=== PATIENT | female | born 1985 | race Hispanic/Latino ===

== ENCOUNTER 2016-08-01 23:09 | Emergency (ER) | payer MEDICAID ==
[2016-08-01 23:09] VITALS: BMI 33.5
[2016-08-01 23:44] VITALS: BP 107/70; PULSE 80; RESP 14; TEMP 98.3; O2SAT 99
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
== END 2016-08-02 00:15 | disposition left against medical advice (07) ==
LOC: C.ER 23:09
DX: R10.30 Lower abdominal pain, unspecified (principal)

== ENCOUNTER 2016-08-22 02:26 | Emergency (ER) | payer MEDICAID, OTHER ==
[2016-08-22 02:26] VITALS: BMI 33.5
[2016-08-22] MEDS ORDERED: Promethazine/Cod 6.25mg-10mg/5ml Syr UD PO STA (03:09)
[2016-08-22] MEDS ORDERED: Ipratropium 0.02% Inhal Soln (0.5 mg/2.5 ml) UD IH ONE ×2 (03:21→03:36)
[2016-08-22] MEDS ORDERED: Promethazine DM 6.25 mg-15 mg/5 ml Syrup ONE (03:22)
--- NOTE | 2016-08-22 03:27 | C.PDOC ---
History Of Present Illness Pt presents to ER with c/o of cough productive of yellowish sputum, chest congestion x 4 days. Pt also c/o o nasal congestion but denies fever, SOB, chest tightness Time Seen by Provider: 08/22/16 02:49 Chief Complaint (Nursing): Cough, Cold, Congestion History Per: Patient History/Exam Limitations: no limitations Current Symptoms Are (Timing): Still Present Sick Contacts (Context): None Associated Symptoms: Sputum. denies: Fever, Sore Throat Past Medical History Vital Signs: Last Vital Signs Temp 98.8 F 08/22/16 03:49 Pulse 87 08/22/16 03:49 Resp 18 08/22/16 03:49 BP 110/73 08/22/16 03:49 Pulse Ox 99 08/22/16 03:49 - Medical History PMH: Anemia Surgical History: Cholecystectomy Family History: States: Unknown Family Hx - Social History Hx Tobacco Use: Yes Hx Alcohol Use: No Hx Substance Use: No - Immunization History Hx Tetanus Toxoid Vaccination: No Hx Influenza Vaccination: Yes Hx Pneumococcal Vaccination: Yes Review Of Systems Constitutional: Negative for: Fever ENT: Positive for: Nose Congestion Cardiovascular: Negative for: Chest Pain Respiratory: Positive for: Cough, Sputum (yellow). Negative for: Shortness of Breath, Pleuritic Pain, Wheezing Neurological: Negative for: Weakness, Numbness Physical Exam - Physical Exam Appears: Well, Non-toxic Eye(s): bilateral: Normal Inspection, PERRL Oral Mucosa: Moist Throat: Normal, No Erythema, No Exudate Neck: Normal Chest: Symmetrical, No Tenderness Cardiovascular: Rhythm Regular Respiratory: Normal Breath Sounds, No Accessory Muscle Use, No Wheezing, Other ( minimally congested) Neurological/Psych: Oriented x3, Normal Cognition ED Course And Treatment O2 Sat by Pulse Oximetry: 99 Pulse Ox Interpretation: Normal Progress Note: Pt received duoneb x 1, phenergan with codeine and RX given and advised follow up with PMD Reevaluation Time: 04:01 Reassessment Condition: Improved Disposition Counseled Patient/Family Regarding: Diagnosis, Need For Followup, Rx Given - Disposition Referrals: [facility] [Outside] Disposition Time: 03:30 Condition: STABLE Additional Instructions: Please follow up with PMD Increase PO fluids Take all meds Return to ER if worse Prescriptions: Benzonatate [Tessalon Perles] 100 mg PO TID #20 sgl Azithromycin [Zithromax] 250 mg PO DAILY #6 tab Cetirizine HCl [Zyrtec] 10 mg PO DAILY #20 capsule Instructions: Upper Respiratory Infection (ED) - Clinical Impression Clinical Impression: Upper respiratory infection
[2016-08-22] MEDS: Ipratropium 0.02% Inhal Soln (0.5 mg/2.5 ml) UD IH SCH ×2 (03:30→03:38)
[2016-08-22 03:49] VITALS: BP 110/73; PULSE 87; RESP 18; TEMP 98.8; O2SAT 99
--- NOTE | 2016-09-01 08:43 | CARD ---
APPROVED REPORT EKG Measurement Heart [id number] <Conclusion> Normal sinus rhythm Baseline artifact
== END 2016-08-22 04:04 | disposition home or self-care (01) ==
LOC: C.ER 02:26
DX: J06.9 Acute upper respiratory infection, unspecified (principal)

== ENCOUNTER 2016-08-25 21:39 | Emergency (ER) | payer MEDICAID ==
[2016-08-25 21:39] VITALS: BMI 33.5
[2016-08-25 22:29] VITALS: RESP 20; O2SAT 98
[2016-08-25 23:17] LABS: BASO # 0.1 K/uL (0.0-0.2); BASO % 1.7 % (0.0-2.0); EOS # 0.2 K/uL (0.0-0.7); EOS % 2.5 % (0.0-4.0); HEMATOCRIT 36.7 % (34.0-47.0); LYMPH # 2.9 K/uL (1.0-4.3); LYMPH % 35.1 % (20.0-40.0); MEAN CELL VOLUME 92.8 fL (81.0-99.0); MEAN CORPUSCULAR HGB CONC 33.4 g/dL (33.0-37.0); MEAN PLATELET VOLUME 9.3 fL (7.2-11.7); MONO # 0.6 K/uL (0.0-0.8); MONO % 7.1 % (0.0-10.0); RED CELL DISTRIBUTION WIDTH 13.3 % (11.5-14.5); WHITE BLOOD COUNT 8.4 K/uL (4.8-10.8)
[2016-08-25 23:25] LABS: CHLORIDE 102 mmol/L (98-107); SODIUM 136 mmol/L (132-148)
[2016-08-25 23:27] LABS: AST/SGOT 24 U/L (14-36); BILIRUBIN,TOTAL 0.3 mg/dL (0.2-1.3); CARBON DIOXIDE 28 mmol/L (22-30); GFR AFRICAN-AMERICAN > 60
[2016-08-25 23:28] LABS: ALB/GLOB RATIO 1.4 (1.0-2.1); ALKALINE PHOSPHATASE 62 U/L (38-126); ALT/SGPT 33 U/L (9-52); BLOOD UREA NITROGEN 13 mg/dL (7-17); CALCIUM 8.3 mg/dl (8.6-10.4); GLUCOSE,RANDOM 104 mg/dL (65-105); TOTAL PROTEIN 6.5 g/dL (6.3-8.3)
[2016-08-25 23:29] LABS: PARTIAL THROMBOPLASTIN TIME 34 SECONDS (21-34)
--- NOTE | 2016-08-26 00:30 | C.PDOC ---
History Of Present Illness Pt c/o b/l LE pain and swelling. Time Seen by Provider: 08/25/16 22:36 Chief Complaint (Nursing): Lower Extremity Problem/Injury History Per: Patient Onset/Duration Of Symptoms: Days Current Symptoms Are (Timing): Still Present Severity: Moderate Associated Symptoms: Leg/Calf Pain, Ankle/Leg Swelling Reports Recently: Seen In ED Additional History Per: Prior Records Past Medical History Reviewed: Historical Data, Nursing Documentation, Vital Signs Vital Signs: Last Vital Signs Temp 98.4 F 08/25/16 22:24 Pulse 86 08/25/16 22:24 Resp 20 08/25/16 22:24 BP 118/75 08/25/16 22:24 Pulse Ox 98 08/26/16 00:30 - Medical History PMH: Anemia Surgical History: Cholecystectomy Family History: States: Unknown Family Hx - Social History Hx Tobacco Use: Yes Hx Alcohol Use: No Hx Substance Use: No - Immunization History Hx Tetanus Toxoid Vaccination: No Hx Influenza Vaccination: Yes Hx Pneumococcal Vaccination: Yes Review Of Systems Except As Marked, All Systems Reviewed And Found Negative. Constitutional: Negative for: Fever, Weakness Cardiovascular: Negative for: Chest Pain Respiratory: Negative for: Shortness of Breath Gastrointestinal: Negative for: Vomiting, Abdominal Pain Musculoskeletal: Positive for: Leg Pain, Foot Pain. Negative for: Neck Pain, Back Pain Skin: Negative for: Rash Neurological: Negative for: Weakness, Numbness, Seizures, Altered Mental Status Physical Exam - Physical Exam Appears: Non-toxic, No Acute Distress Skin: Normal Color, Warm, Dry, No Rash Head: Atraumatic, Normacephalic Eye(s): bilateral: Normal Inspection, PERRL, EOMI Oral Mucosa: Moist Neck: Normal ROM, Supple Cardiovascular: Rhythm Regular Respiratory: Normal Breath Sounds, No Accessory Muscle Use Gastrointestinal/Abdominal: Soft, No Tenderness Back: No CVA Tenderness, No Vertebral Tenderness Extremity: Normal ROM, Tenderness (nonspecific b/l LEs), Pedal Edema (mild b/l) , Capillary Refill (wnl), No Deformity Pulses: Left Dorsalis Pedis: Normal, Right Dorsalis Pedis: Normal Neurological/Psych: Oriented x3, Normal Motor, Normal Sensation ED Course And Treatment - Laboratory Results Result Diagrams: 08/25/16 23:12 08/25/16 23:12 Lab Interpretation: No Acute Changes Urine POC: Negative O2 Sat by Pulse Oximetry: 98 Pulse Ox Interpretation: Normal Reassessment Condition: Improved Disposition Counseled Patient/Family Regarding: Studies Performed, Diagnosis, Need For Followup - Disposition Disposition: HOME/ ROUTINE Disposition Time: 00:45 Condition: IMPROVED Additional Instructions: Follow up with your doctor for further evaluation and treatment. Return to the ER if you develop chest pain, shortness of breath, worsening of symptoms or if you have any other concerns. Instructions: Leg Edema (ED) - Clinical Impression Clinical Impression: Leg pain, bilateral
[2016-08-26 00:44] LABS: RBC URINE 1 /hpf (0-3); URINE BILIRUBIN NEGATIVE (NEGATIVE); URINE BLOOD NEGATIVE (NEGATIVE); URINE COLOR Yellow (YELLOW); URINE GLUCOSE (UA) NORMAL (Normal); URINE KETONE NEGATIVE (NEGATIVE); URINE LEUKOCYTE ESTERASE NEG Leu/uL (Negative); URINE PROTEIN NEGATIVE (NEGATIVE); URINE UROBILINOGEN NORMAL mg/dL (0.2-1.0); WBC URINE 1 /hpf (0-5)
[2016-08-26 00:58] VITALS: BP 132/76; PULSE 78; TEMP 98
== END 2016-08-26 00:56 | disposition home or self-care (01) ==
LOC: C.ER 21:39
DX: M79.662 Pain in left lower leg (principal); M79.661 Pain in right lower leg
CPT/HCPCS: 80053; 80324; 80345; 80346; 80349; 80353; 80358; 80361; 81001; 82550; 83880; 83992; 84484; 84703; 85025; 85378; 85610; 85730; 96374; 99284; J1940

== ENCOUNTER 2016-10-09 22:59 | Emergency (ER) | payer MEDICAID, OTHER ==
[2016-10-09 22:59] VITALS: BMI 33.5
[2016-10-09 23:26] VITALS: O2SAT 99
[2016-10-09] MEDS ORDERED: Sodium Chloride 0.9% 1,000 ML IV ONE (23:34)
--- NOTE | 2016-10-09 23:34 | C.PDOC ---
History Of Present Illness A 31 y/o female presents to the ER c/o abdominal pain for a week. Pt also reports vaginal bleeding and clots for 2 days. Pt notes vomiting and diarrhea but denies fever, chills, vaginal discharge, hematuria, dysuria, or any other complaints. Time Seen by Provider: 10/09/16 23:34 Chief Complaint (Nursing): Abdominal Pain History Per: Patient History/Exam Limitations: no limitations Onset/Duration Of Symptoms: Days Current Symptoms Are (Timing): Still Present Severity: Mild Location Of Pain/Discomfort: Epigastric Quality Of Discomfort: "Pain" Associated Symptoms: Vomiting, Diarrhea Recent travel outside of the [place]: No Additional History Per: Patient Abnormal Vaginal Bleeding: Yes Past Medical History Reviewed: Historical Data, Nursing Documentation, Vital Signs Vital Signs: Last Vital Signs Temp 98.4 F 10/10/16 04:15 Pulse 91 H 10/10/16 04:15 Resp 16 10/10/16 04:15 BP 94/60 L 10/10/16 04:15 Pulse Ox 99 10/10/16 04:21 - Medical History PMH: Anemia, Asthma Surgical History: Cholecystectomy Family History: States: Unknown Family Hx - Social History Hx Tobacco Use: Yes Hx Alcohol Use: No Hx Substance Use: No - Immunization History Hx Tetanus Toxoid Vaccination: No Hx Influenza Vaccination: Yes Hx Pneumococcal Vaccination: Yes Review Of Systems Constitutional: Negative for: Fever, Chills Gastrointestinal: Positive for: Vomiting, Abdominal Pain, Diarrhea Genitourinary: Positive for: Vaginal Bleeding. Negative for: Dysuria, Hematuria , Vaginal Discharge Physical Exam - Physical Exam Appears: Non-toxic, No Acute Distress Skin: Warm, Dry Head: Normacephalic Eye(s): bilateral: Normal Inspection Neck: Trachea Midline, Supple Chest: Symmetrical Cardiovascular: Rhythm Regular Respiratory: No Rales, No Rhonchi, No Wheezing Gastrointestinal/Abdominal: Soft, Tenderness (Mild epigastric tenderness), No Guarding, No Rebound Neurological/Psych: Oriented x3 (Awake and alert), Normal Speech Gait: Steady ED Course And Treatment - Laboratory Results Result Diagrams: 10/09/16 23:49 10/09/16 23:49 O2 Sat by Pulse Oximetry: 99 (RA) Pulse Ox Interpretation: Normal Disposition Counseled Patient/Family Regarding: Studies Performed, Diagnosis, Need For Followup, Rx Given - Disposition Referrals: [facility] [Outside] [facility] [Outside] Disposition: HOME/ ROUTINE Disposition Time: 23:34 Condition: FAIR Prescriptions: oxyCODONE/Acetaminophen [Percocet 5/325 mg Tab] 1 tab PO TID #10 tab Instructions: Dysfunctional Uterine Bleeding (ED), Uterine Fibroids (ED) - Clinical Impression Clinical Impression: Vaginal bleeding, Fibroid, uterine - Scribe Statement The provider has reviewed the documentation as recorded by the Kavonibgenna braden All medical record entries made by the Kavonibgenna were at my direction and personally dictated by me. I have reviewed the chart and agree that the record accurately reflects my personal performance of the history, physical exam, medical decision making, and the department course for this patient. I have also personally directed, reviewed, and agree with the discharge instructions and disposition.
[2016-10-09 23:56] LABS: BASO % 0.2 % (0.0-2.0); EOS # 0.2 K/uL (0.0-0.7); EOS % 2.2 % (0.0-4.0); HEMATOCRIT 36.6 % (34.0-47.0); LYMPH # 2.3 K/uL (1.0-4.3); LYMPH % 30.9 % (20.0-40.0); MEAN CELL VOLUME 92.7 fL (81.0-99.0); MEAN CORPUSCULAR HEMOGLOBIN 30.7 pg (27.0-31.0); MEAN CORPUSCULAR HGB CONC 33.1 g/dL (33.0-37.0); MONO # 0.6 K/uL (0.0-0.8); MONO % 8.2 % (0.0-10.0); NRBC % 0.1 % (0.0-2.0); RED CELL DISTRIBUTION WIDTH 13.6 % (11.5-14.5); WHITE BLOOD COUNT 7.4 K/uL (4.8-10.8)
[2016-10-10] MEDS ORDERED: Sodium Chloride 0.9% 1,000 ML ONE
[2016-10-10 00:01] LABS: RBC URINE 5874 /hpf (0-3); URINE BILIRUBIN NEGATIVE (NEGATIVE); URINE BLOOD 3+ (NEGATIVE); URINE COLOR Red (YELLOW); URINE GLUCOSE (UA) NORMAL (Normal); URINE KETONE NEGATIVE (NEGATIVE); URINE LEUKOCYTE ESTERASE 1+ Leu/uL (Negative); URINE PROTEIN 2+ mg/dL (NEGATIVE); URINE UROBILINOGEN NORMAL mg/dL (0.2-1.0); WBC URINE 59 /hpf (0-5)
[2016-10-10 00:01] LABS: CHLORIDE 104 mmol/L (98-107); POTASSIUM 3.8 mmol/L (3.6-5.2); SODIUM 137 mmol/L (132-148)
[2016-10-10 00:03] LABS: BILIRUBIN,TOTAL 0.5 mg/dL (0.2-1.3); CARBON DIOXIDE 26 mmol/L (22-30); GFR AFRICAN-AMERICAN > 60
[2016-10-10] MEDS ORDERED: cefTRIAXone IV 1 gm in Dextros 50 ML IVPB ONE ×2 (00:03→00:30)
[2016-10-10 00:04] LABS: ALB/GLOB RATIO 1.3 (1.0-2.1); ALKALINE PHOSPHATASE 54 U/L (38-126); ALT/SGPT 25 U/L (9-52); AST/SGOT 20 U/L (14-36); BLOOD UREA NITROGEN 13 mg/dL (7-17); CALCIUM 8.7 mg/dl (8.6-10.4); GLUCOSE,RANDOM 96 mg/dL (65-105); TOTAL PROTEIN 6.6 g/dL (6.3-8.3)
--- NOTE | 2016-10-10 04:28 | US ---
EXAM: US Pelvis Complete, Transabdominal CLINICAL HISTORY: 31 years old, female; Signs and symptoms; Menstruation abnormalities; Excessive menstruation; With regular cycle; Additional info: Vag bleed, clots TECHNIQUE: Real-time transabdominal pelvic ultrasound (complete) with image documentation. COMPARISON: CT - ABD PELVIS IV CONTRAST ONLY 12/23/2015 11:24:10 PM FINDINGS: Uterus/cervix: Uterus measures 10.4 x 5.0 x 0.9 cm in size. Two uterine masses, larger measuring 2.1 x 1.5 x 1.9 cm. Endometrium: 0.7 cm in thickness. Right ovary: 3.4 x 1.8 x 3.1 cm in size. No mass. Small follicles. Normal flow. Left ovary: 3.8 x 4.1 x 1.9 cm in size. No mass. Small follicles. Normal flow. Free fluid: No significant free fluid. Bladder: Unremarkable as visualized. IMPRESSION: 1. Probable fibroid uterus. 2. Incidental/non-acute findings are described above. EXAM: US Pelvis, Transvaginal CLINICAL HISTORY: 31 years old, female; Signs and symptoms; Menstruation abnormalities; Excessive menstruation; With regular cycle; Additional info: Vag bleed, clots TECHNIQUE: Real-time transvaginal pelvic ultrasound (complete) with image documentation. Transvaginal imaging was used for better evaluation of the endometrium and adnexa. COMPARISON: CT - ABD PELVIS IV CONTRAST ONLY 12/23/2015 11:24:10 PM FINDINGS: Uterus/cervix: Uterus measures 10.4 x 5.0 x 0.9 cm in size. Two uterine masses, larger measuring 2.1 x 1.5 x 1.9 cm. Endometrium: 0.7 cm in thickness. Right ovary: 3.4 x 1.8 x 3.1 cm in size. No mass. Small follicles. Normal flow. Left ovary: 3.8 x 4.1 x 1.9 cm in size. No mass. Small follicles. Normal flow. Free fluid: No significant free fluid. Bladder: Empty bladder which cannot be evaluated with this probe.
[2016-10-10 04:35] VITALS: RESP 16; TEMP 98.4
[2016-10-10 04:36] VITALS: BP 94/60; PULSE 91
== END 2016-10-10 05:09 | disposition home or self-care (01) ==
LOC: C.ER 22:59
DX: N93.9 Abnormal uterine and vaginal bleeding, unspecified (principal); D25.9 Leiomyoma of uterus, unspecified
CPT/HCPCS: 76830; 76856; 80053; 81001; 83690; 84703; 85025; 85610; 85730; 86850; 86900; 96361; 96374; 96375; 99284; J0696; J2270; J2405; J2765; J7040

== ENCOUNTER 2016-10-28 01:20 | Emergency (ER) | payer MEDICAID, OTHER ==
[2016-10-28 01:21] VITALS: BMI 33.5
[2016-10-28] MEDS ORDERED: Sodium Chloride 0.9% 1,000 ML IV ONE (02:07)
[2016-10-28] MEDS ORDERED: Sodium Chloride 0.9% 1,000 ML ONE (02:18)
[2016-10-28 02:31] LABS: BASO # 0.2 K/uL (0.0-0.2); BASO % 2.3 % (0.0-2.0); EOS # 0.2 K/uL (0.0-0.7); EOS % 3.2 % (0.0-4.0); HEMATOCRIT 37.2 % (34.0-47.0); LYMPH # 2.9 K/uL (1.0-4.3); LYMPH % 40.2 % (20.0-40.0); MEAN CELL VOLUME 92.5 fL (81.0-99.0); MEAN CORPUSCULAR HEMOGLOBIN 30.9 pg (27.0-31.0); MEAN CORPUSCULAR HGB CONC 33.4 g/dL (33.0-37.0); MEAN PLATELET VOLUME 9.2 fL (7.2-11.7); MONO # 0.5 K/uL (0.0-0.8); MONO % 7.4 % (0.0-10.0); RED CELL DISTRIBUTION WIDTH 13.7 % (11.5-14.5); WHITE BLOOD COUNT 7.2 K/uL (4.8-10.8)
[2016-10-28] MEDS ORDERED: DiphenhydrAMINE 50 mg/ml Inj IVP STA (02:31)
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
[2016-10-28] MEDS ORDERED: DiphenhydrAMINE 50 mg/ml Inj ONE (02:33)
[2016-10-28 02:52] LABS: CHLORIDE 108 mmol/L (98-107)
[2016-10-28 02:53] LABS: POTASSIUM 3.9 mmol/L (3.6-5.2); SODIUM 137 mmol/L (132-148)
[2016-10-28 02:55] LABS: ALB/GLOB RATIO 1.4 (1.0-2.1); AST/SGOT 23 U/L (14-36); BILIRUBIN,TOTAL 0.5 mg/dL (0.2-1.3); BLOOD UREA NITROGEN 16 mg/dL (7-17); CARBON DIOXIDE 23 mmol/L (22-30); GFR AFRICAN-AMERICAN > 60; TOTAL PROTEIN 6.5 g/dL (6.3-8.3)
[2016-10-28 02:56] LABS: ALKALINE PHOSPHATASE 62 U/L (38-126); ALT/SGPT 26 U/L (9-52); CALCIUM 9.2 mg/dl (8.6-10.4); GLUCOSE,RANDOM 94 mg/dL (65-105)
[2016-10-28 03:28] VITALS: BP 128/80; PULSE 90; RESP 20; TEMP 97.8
[2016-10-28 06:26] VITALS: O2SAT 100
== END 2016-10-28 03:28 | disposition home or self-care (01) ==
LOC: SUPCPDRO 01:20 → C.ER 01:20
DX: L55.9 Sunburn, unspecified (principal); R19.7 Diarrhea, unspecified
CPT/HCPCS: 80053; 85025; 96361; 96374; 99284; J1200; J7040

== ENCOUNTER 2016-11-25 14:00 | Emergency (ER) | payer MEDICAID ==
[2016-11-25 14:06] VITALS: BMI 34.7
--- NOTE | 2016-11-25 14:35 | C.PDOC ---
History Of Present Illness LUQ/LLQ ABD PAIN X 3 WEEKS. +VAG DC X 2 DAYS. PAIN CONSTANT. PS MORE INTENSE THAN USUAL. NO FEVER, NVD. LMP 1 MO. PSH EXP LAP, MYOMECTOMY. +"STRONG ODOR" W URINATION. SP TYLENOL 1 HR CLEANING MAID. +SEX ACTIVE, 1 PARTNER HO FIBROIDS, CHRONIC ABD PAIN, CHRONIC BACK PAIN, chronic drug abuser, has multiple prescriptions for opiates as see [place]. MULT PRIOR ER VISITS FOR ABD PAIN, VAG DC. 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 EXT VAG NEG. SPECULUM EXAM +CANDIDIASIS Time Seen by Provider: 11/25/16 14:25 Chief Complaint (Nursing): Abdominal Pain History Per: Patient History/Exam Limitations: no limitations Onset/Duration Of Symptoms: Days, Persistent Current Symptoms Are (Timing): Still Present Location Of Pain/Discomfort: LUQ, LLQ Radiation Of Pain To:: None Quality Of Discomfort: "Pain" Associated Symptoms: Urinary Symptoms. denies: Fever, Chills, Diarrhea Recent travel outside of the [place]: No Abnormal Vaginal Bleeding: No Past Medical History Reviewed: Historical Data, Nursing Documentation, Vital Signs Vital Signs: Last Vital Signs Temp 98.2 F 11/25/16 15:52 Pulse 80 11/25/16 15:52 Resp 18 11/25/16 15:52 BP 102/66 11/25/16 15:52 Pulse Ox 98 11/25/16 17:46 - Medical History PMH: Anemia, Asthma, Chronic Pain (chronic abdominal pain ) Surgical History: Cholecystectomy Family History: States: Unknown Family Hx - Social History Hx Tobacco Use: Yes Hx Alcohol Use: No (Denies) Hx Substance Use: No - Immunization History Hx Tetanus Toxoid Vaccination: No Hx Influenza Vaccination: Yes Hx Pneumococcal Vaccination: Yes Review Of Systems Except As Marked, All Systems Reviewed And Found Negative. Constitutional: Negative for: Fever, Chills Cardiovascular: Negative for: Chest Pain Respiratory: Negative for: Cough, Shortness of Breath, Wheezing Gastrointestinal: Positive for: Abdominal Pain. Negative for: Nausea, Vomiting , Diarrhea Genitourinary: Positive for: Vaginal Discharge Skin: Negative for: Rash Neurological: Negative for: Headache, Dizziness Physical Exam - Physical Exam Appears: Non-toxic, No Acute Distress Skin: Warm, Dry Head: Atraumatic, Normacephalic Oral Mucosa: Moist Chest: Symmetrical Cardiovascular: Rhythm Regular Respiratory: Normal Breath Sounds, No Rales, No Rhonchi, No Wheezing Gastrointestinal/Abdominal: Soft, Tenderness (+LUQ/LLQ ), No Guarding, No Rebound Back: Normal Inspection, No CVA Tenderness Extremity: Normal ROM, Capillary Refill (< 2 SEC. ) Neurological/Psych: Oriented x3, Normal Speech, Normal Cognition ED Course And Treatment - Laboratory Results Result Diagrams: 11/25/16 15:06 11/25/16 15:06 O2 Sat by Pulse Oximetry: 98 Pulse Ox Interpretation: Normal - CT Scan/US ULTRASOUND Other Rad Studies (CT/US): Read By Radiologist, Radiology Report Reviewed CT/US Interpretation: FINDINGS: UTERUS: Measures 9.1 x 4.8 x 6.1 cm. Fundal uterine fibroid, 2.0 x 1.9 x 1.8 cm. Anterior uterine body fibroid, 2.4 x 1.8 x 2.2 cm. ENDOMETRIUM: Measures 4 mm in single wall thickness. Trace endometrial fluid. Mm in diameter. CERVIX: No cervical abnormality identified. RIGHT OVARY: Measures 3.7 x 3.0 by 3.4 cm. No solid mass. Normal flow. Complex cyst, 1.9 x 1.7 x 1.2 cm. LEFT OVARY: Measures 4.3 x 1.9 x 3.9 cm. No solid mass. Normal flow. Two left para ovarian simple cysts, 9 mm and 10 mm in greatest dimension respectively. FREE FLUID: No significant free fluid noted. OTHER FINDINGS: None. IMPRESSION: Two uterine fibroids. Trace endometrial fluid. Complex 1.9 cm right ovarian cyst. Two small simple left paraovarian cysts. No additional abnormality. Progress Note: TREATED WITH MORPHINE 4MG IVP. LABS AND ULTRASOUND ORDERED. Progress - Re-Evaluation Re-evaluation Note: 11/25/16 15:00 [facility] reviewed LAST [facility] RX 10/18/16 - Data Reviewed Data Reviewed: Lab, Diagnostic imaging, Old records - Continuity of Care Discussed pt. case with home service consultant/specialty: Other ([facility]) Disposition Counseled Patient/Family Regarding: Studies Performed, Diagnosis, Need For Followup, Rx Given - Disposition Referrals: [facility] [Other] Disposition: HOME/ ROUTINE Disposition Time: 18:21 Condition: IMPROVED Prescriptions: Tramadol HCl [Ultram] 50 mg PO QID #20 tab Instructions: Ovarian Cyst (ED) - Clinical Impression Clinical Impression: Pelvic pain - Scribe Statement The provider has reviewed the documentation as recorded by the Jun SABA Provider Attestation: All medical record entries made by the Jun were at my direction and personally dictated by me. I have reviewed the chart and agree that the record accurately reflects my personal performance of the history, physical exam, medical decision making, and the department course for this patient. I have also personally directed, reviewed, and agree with the discharge instructions and disposition.
[2016-11-25 15:07] LABS: SQUAMOUS EPITHIAL 4 /hpf (0-5); URINE AMORPHOUS SEDIMENT FEW /ul (<OCC); URINE BACTERIA RARE (<OCC); URINE BILIRUBIN NEGATIVE (NEGATIVE); URINE BLOOD NEGATIVE (NEGATIVE); URINE CLARITY Hazy (Clear); URINE COLOR Yellow (YELLOW); URINE GLUCOSE (UA) NORMAL (Normal); URINE LEUKOCYTE ESTERASE TRACE Leu/uL (Negative); URINE NITRATE NEGATIVE (NEGATIVE); URINE PROTEIN NEGATIVE (NEGATIVE); URINE UROBILINOGEN NORMAL mg/dL (0.2-1.0)
[2016-11-25 15:15] LABS: BASO # 0.1 K/uL (0.0-0.2); BASO % 2.2 % (0.0-2.0); EOS # 0.1 K/uL (0.0-0.7); EOS % 1.9 % (0.0-4.0); HEMOGLOBIN 12.5 g/dL (11.0-16.0); LYMPH # 2.1 K/uL (1.0-4.3); LYMPH % 31.6 % (20.0-40.0); MEAN CORPUSCULAR HEMOGLOBIN 30.1 pg (27.0-31.0); MEAN CORPUSCULAR HGB CONC 32.4 g/dL (33.0-37.0); MEAN PLATELET VOLUME 9.1 fL (7.2-11.7); MONO # 0.5 K/uL (0.0-0.8); MONO % 7.5 % (0.0-10.0); NEUT # 3.7 K/uL (1.8-7.0); NEUT % 56.8 % (50.0-75.0); RBC 4.13 Mil/uL (3.80-5.20); RED CELL DISTRIBUTION WIDTH 13.6 % (11.5-14.5); WHITE BLOOD COUNT 6.6 K/uL (4.8-10.8)
[2016-11-25 15:28] LABS: ALBUMIN 3.4 g/dL (3.5-5.0)
[2016-11-25 15:31] LABS: ALB/GLOB RATIO 1.3 (1.0-2.1); ALT/SGPT 38 U/L (9-52); AST/SGOT 23 U/L (14-36); BLOOD UREA NITROGEN 15 mg/dL (7-17); CALCIUM 8.2 mg/dl (8.6-10.4); GFR AFRICAN-AMERICAN > 60; GFR NON-AFRICAN AMERICAN > 60; LIPASE 33 U/L (23-300)
[2016-11-25 16:04] VITALS: O2SAT 98
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
[2016-11-26 12:00] VITALS: BP 97/63; PULSE 64; RESP 17; TEMP 98
== END 2016-11-25 18:34 | disposition home or self-care (01) ==
LOC: C.ER 14:00
DX: R10.2 Pelvic and perineal pain (principal)
CPT/HCPCS: 76830; 76856; 80053; 81001; 83690; 85025; 87086; 94770; 96374; 99285; J2270

== ENCOUNTER 2017-01-18 14:20 | Emergency (ER) | payer MEDICAID ==
[2017-01-18 14:24] VITALS: BP 107/72; PULSE 111; RESP 18; TEMP 98; O2SAT 98; BMI 32.6
[2017-01-18] MEDS ORDERED: Sodium Chloride 0.9% 1,000 ML IV ONE (14:46)
[2017-01-18] MEDS ORDERED: Sodium Chloride 0.9% 1,000 ML ONE (14:53)
[2017-01-18 15:03] LABS: BASO # 0.1 K/uL (0.0-0.2); BASO % 1.3 % (0.0-2.0); EOS # 0.2 K/uL (0.0-0.7); EOS % 3.2 % (0.0-4.0); LYMPH # 2.2 K/uL (1.0-4.3); LYMPH % 37.7 % (20.0-40.0); MEAN CELL VOLUME 93.1 fL (81.0-99.0); MEAN CORPUSCULAR HEMOGLOBIN 31.2 pg (27.0-31.0); MEAN CORPUSCULAR HGB CONC 33.5 g/dL (33.0-37.0); MEAN PLATELET VOLUME 8.9 fL (7.2-11.7); MONO # 0.5 K/uL (0.0-0.8); MONO % 7.9 % (0.0-10.0); NRBC % 0.1 % (0.0-2.0); RED CELL DISTRIBUTION WIDTH 13.4 % (11.5-14.5); WHITE BLOOD COUNT 5.7 K/uL (4.8-10.8)
[2017-01-18 15:11] LABS: CHLORIDE 107 mmol/L (98-107); POTASSIUM 4.2 mmol/L (3.6-5.2); SODIUM 140 mmol/L (132-148)
[2017-01-18 15:12] LABS: RBC URINE 1 /hpf (0-3); URINE BACTERIA OCC (<OCC); URINE BILIRUBIN NEGATIVE (NEGATIVE); URINE BLOOD NEGATIVE (NEGATIVE); URINE COLOR Yellow (YELLOW); URINE GLUCOSE (UA) NORMAL (Normal); URINE KETONE NEGATIVE (NEGATIVE); URINE LEUKOCYTE ESTERASE NEG Leu/uL (Negative); URINE PROTEIN NEGATIVE (NEGATIVE); URINE UROBILINOGEN NORMAL mg/dL (0.2-1.0); WBC URINE 3 /hpf (0-5)
[2017-01-18 15:14] LABS: ALB/GLOB RATIO 1.4 (1.0-2.1); ALKALINE PHOSPHATASE 70 U/L (38-126); AST/SGOT 18 U/L (14-36); BILIRUBIN,TOTAL 0.4 mg/dL (0.2-1.3); BLOOD UREA NITROGEN 12 mg/dL (7-17); CARBON DIOXIDE 24 mmol/L (22-30); GFR AFRICAN-AMERICAN > 60; TOTAL PROTEIN 6.5 g/dL (6.3-8.3)
[2017-01-18 15:15] LABS: ALT/SGPT 28 U/L (9-52); CALCIUM 8.6 mg/dl (8.6-10.4); GLUCOSE,RANDOM 83 mg/dL (65-105)
--- NOTE | 2017-01-18 15:21 | C.PDOC ---
History Of Present Illness 31 y/o female presents to ED for evaluation of lower abdominal pain, mostly left sided, for the past month. Pt reports being seen by PMD, Dr. Goldman, on who gave her prescription to be evaluated for possible ovarian cyst, but pt has not followed up yet. Otherwise, denies any n/v/d, back pain, or fever. Time Seen by Provider: 01/18/17 14:27 Chief Complaint (Nursing): Abdominal Pain History Per: Patient History/Exam Limitations: no limitations Onset/Duration Of Symptoms: Days Current Symptoms Are (Timing): Still Present Location Of Pain/Discomfort: Suprapubic Radiation Of Pain To:: None Quality Of Discomfort: "Pain" Associated Symptoms: denies: Loss Of Appetite, Back Pain, Chest Pain, Constipation, Urinary Symptoms Exacerbating Factors: None Alleviating Factors: None Recent travel outside of the [place]: No Additional History Per: Patient Abnormal Vaginal Bleeding: No Past Medical History Reviewed: Historical Data, Nursing Documentation, Vital Signs Vital Signs: Last Vital Signs Temp 98 F 01/18/17 14:23 Pulse 111 H 01/18/17 14:23 Resp 18 01/18/17 14:23 BP 107/72 01/18/17 14:23 Pulse Ox 98 01/18/17 15:31 - Medical History PMH: Anemia, Asthma, Chronic Pain (chronic abdominal pain ) Surgical History: Cholecystectomy Family History: States: Unknown Family Hx - Social History Hx Tobacco Use: Yes Hx Alcohol Use: No (Denies) Hx Substance Use: No - Immunization History Hx Tetanus Toxoid Vaccination: No Hx Influenza Vaccination: Yes (01/2016) Hx Pneumococcal Vaccination: Yes (4 years ago) Review Of Systems Except As Marked, All Systems Reviewed And Found Negative. Constitutional: Negative for: Fever, Chills Cardiovascular: Negative for: Chest Pain, Palpitations Respiratory: Negative for: Cough, Shortness of Breath Gastrointestinal: Positive for: Abdominal Pain (lower). Negative for: Nausea, Vomiting, Diarrhea, Constipation Musculoskeletal: Negative for: Back Pain Physical Exam - Physical Exam Appears: Non-toxic, No Acute Distress Skin: Normal Color, Warm, Dry Head: Atraumatic, Normacephalic Oral Mucosa: Moist Cardiovascular: Rhythm Regular, No Murmur Respiratory: Normal Breath Sounds, No Rales, No Rhonchi, No Wheezing Gastrointestinal/Abdominal: Soft, Tenderness (mild suprapubic), No Guarding, No Rebound Extremity: Bilateral: Atraumatic, Normal Color And Temperature, Normal ROM Neurological/Psych: Oriented x3, Normal Speech ED Course And Treatment - Laboratory Results Result Diagrams: 01/18/17 15:00 Lab Interpretation: Normal Urine POC: Negative O2 Sat by Pulse Oximetry: 98 (on RA) Pulse Ox Interpretation: Normal Progress Note: Blood work, UA, transvaginal ultrasound ordered. Pt was given IV fluids and Tylenol. Pt is requesting narcotics. Pt left from the ED without signing AMA when refused to give narcotics. Reassessment Condition: Unchanged Medical Decision Making Medical Decision Making: Patient has multiple visitis to ED for abdominal pain. Patient had recent Pelvic US and CT which showed uterine fibroids and ovarian cysts Patient exhibiting drug seeking behavior Requesting pain medication offered tylenol but patient refused and requesting something else for pain Patient informed she will not receive any narcotics. Patient then refused further testing and requested to leave Patient refused to sign AMA form Disposition - Disposition Disposition: AGAINST MEDICAL ADVICE Disposition Time: 15:30 Condition: STABLE Additional Instructions: Follow up with your INTERFACE ENGINEER and PMD for further evaluation Instructions: Pelvic Pain in Women (ED) Forms: [employer] (Guinean) - POA Present On Arrival: None - Clinical Impression Clinical Impression: Abdominal pain - PA / GERMINATION WORKER / Resident Statement MD/DO has reviewed & agrees with the documentation as recorded. - Scribe Statement The provider has reviewed the documentation as recorded by the Scribe Eber Bartholomew All medical record entries made by the Kavonibgenna were at my direction and personally dictated by me. I have reviewed the chart and agree that the record accurately reflects my personal performance of the history, physical exam, medical decision making, and the department course for this patient. I have also personally directed, reviewed, and agree with the discharge instructions and disposition.
== END 2017-01-18 15:30 | disposition left against medical advice (07) ==
LOC: C.ER 14:20
DX: R10.32 Left lower quadrant pain (principal)
CPT/HCPCS: 80053; 81001; 83690; 84703; 85025; 99284; J7040

== ENCOUNTER 2017-08-09 19:21 | Emergency (ER) | payer MEDICAID ==
[2017-08-09 19:21] VITALS: BMI 32.6
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
[2017-08-10 11:38] VITALS: BP 118/78; PULSE 93; RESP 20; TEMP 98.1; O2SAT 99
== END 2017-08-09 21:00 | disposition home or self-care (01) ==
LOC: C.ER 19:21
DX: R51 Headache (principal)

== ENCOUNTER 2017-08-27 22:27 | Emergency (ER) | payer MEDICAID ==
[2017-08-27 22:27] VITALS: BMI 32.6
[2017-08-27] MEDS ORDERED: Sodium Chloride 0.9% 1,000 ML IV ONE (23:00)
[2017-08-27] MEDS ORDERED: Belladonna-Phenobarbital PO STA (23:00)
[2017-08-27 23:22] LABS: BASO # 0.1 K/uL (0.0-0.2); BASO % 1.1 % (0.0-2.0); EOS # 0.1 K/uL (0.0-0.7); EOS % 2.1 % (0.0-4.0); HEMOGLOBIN 12.3 g/dL (11.0-16.0); LYMPH # 1.9 K/uL (1.0-4.3); MEAN CELL VOLUME 94.1 fL (81.0-99.0); MEAN CORPUSCULAR HEMOGLOBIN 32.6 pg (27.0-31.0); MEAN CORPUSCULAR HGB CONC 34.6 g/dL (33.0-37.0); MEAN PLATELET VOLUME 8.8 fL (7.2-11.7); MONO # 0.5 K/uL (0.0-0.8); NEUT # 3.7 K/uL (1.8-7.0); NEUT % 58.8 % (50.0-75.0); NRBC % 0.1 % (0.0-2.0); RBC 3.78 Mil/uL (3.80-5.20); RED CELL DISTRIBUTION WIDTH 13.6 % (11.5-14.5); WHITE BLOOD COUNT 6.3 K/uL (4.8-10.8)
[2017-08-27] MEDS ORDERED: Belladonna-Phenobarbital ONE (23:22)
--- NOTE | 2017-08-27 23:34 | C.PDOC ---
Time Seen by Provider: 08/27/17 22:56 Chief Complaint (Nursing): GI Problem History Per: Patient Onset/Duration Of Symptoms: Days (1) Current Symptoms Are (Timing): Still Present Severity: Moderate Associated Symptoms: Nausea, Vomiting, Diarrhea Exacerbating Factors: Food Alleviating Factors: None Recent travel outside of the [place]: No Additional History Per: Prior Records Past Medical History Reviewed: Historical Data, Nursing Documentation, Vital Signs Vital Signs: Last Vital Signs Temp 97.6 F 08/28/17 00:36 Pulse 81 08/28/17 00:36 Resp 20 08/28/17 00:36 BP 108/67 08/28/17 00:36 Pulse Ox 96 08/28/17 00:36 - Medical History PMH: Anemia, Asthma, Chronic Pain (chronic abdominal pain ) Family History: States: Unknown Family Hx - Social History Hx Tobacco Use: Yes Hx Alcohol Use: No (Denies) Hx Substance Use: No - Immunization History Hx Tetanus Toxoid Vaccination: No Hx Influenza Vaccination: Yes Hx Pneumococcal Vaccination: Yes Review Of Systems Except As Marked, All Systems Reviewed And Found Negative. Constitutional: Negative for: Fever, Weakness Cardiovascular: Negative for: Chest Pain Respiratory: Negative for: Shortness of Breath Gastrointestinal: Positive for: Nausea, Vomiting, Diarrhea. Negative for: Abdominal Pain, Melena, Hematochezia, Hematemesis Genitourinary: Negative for: Dysuria Musculoskeletal: Negative for: Neck Pain, Back Pain Skin: Negative for: Rash Neurological: Negative for: Weakness, Numbness Physical Exam - Physical Exam Appears: Non-toxic, No Acute Distress Skin: Normal Color, Warm, Dry, No Rash Head: Atraumatic, Normacephalic Eye(s): bilateral: Normal Inspection, PERRL, EOMI Neck: Normal ROM, Supple Cardiovascular: Rhythm Regular Respiratory: Normal Breath Sounds, No Accessory Muscle Use Gastrointestinal/Abdominal: Soft, No Tenderness Back: No CVA Tenderness Extremity: Normal ROM Neurological/Psych: Oriented x3, Normal Motor, Normal Sensation ED Course And Treatment - Laboratory Results Result Diagrams: 08/27/17 23:20 08/27/17 23:20 Lab Interpretation: No Acute Changes Urine POC: Negative O2 Sat by Pulse Oximetry: 98 Pulse Ox Interpretation: Normal Progress Note: Pt tolerating PO in the ED. No abdominal pain. Reassessment Condition: Improved Progress - Interventions Interventions:: Observation, Intravenous fluid - Medications Administered Intravenous: Antiemetic, H-2 tiny - Data Reviewed Data Reviewed: Lab, Old records - Patient Status Patient status: Mostly improved - Continuity of Care Discussed patient case with:: Patient, Family-HIPPA compliant, ED Nurse - Patient Plan Patient Plan: Discharge, F/U with PCP Disposition Counseled Patient/Family Regarding: Studies Performed, Diagnosis, Need For Followup, Rx Given, Smoking Cessation - Disposition Referrals: Shaik Goldman MD [Staff Provider] - Disposition: HOME/ ROUTINE Disposition Time: 00:46 Condition: IMPROVED Additional Instructions: Drink plenty of fluids (Gatorade). Follow up with your doctor. Return to the ER if you develop abdominal pain, bleeding, not tolerating fluids, worsening of symptoms or if you have any other concerns. Prescriptions: Ondansetron [Zofran] 4 mg PO Q8H PRN #15 tab PRN Reason: Nausea/Vomiting Instructions: Viral Gastroenteritis, Adult (DC) Forms: [employer] (Wolof) - Clinical Impression Clinical Impression: Nausea, vomiting and diarrhea
[2017-08-27 23:35] LABS: ALB/GLOB RATIO 1.2 (1.0-2.1); ALBUMIN 3.6 g/dL (3.5-5.0); ALT/SGPT 22 U/L (9-52); AST/SGOT 22 U/L (14-36); BLOOD UREA NITROGEN 12 mg/dL (7-17); CALCIUM 8.4 mg/dl (8.6-10.4); GFR AFRICAN-AMERICAN > 60; GFR NON-AFRICAN AMERICAN > 60; LIPASE 48 U/L (23-300)
[2017-08-27] MEDS ORDERED: Potassium Chloride 20 mEq ER Tab PO STA (23:36)
[2017-08-27] MEDS ORDERED: Potassium Chloride 20 mEq ER Tab PO ONE (23:56)
[2017-08-28 00:37] VITALS: BP 108/67; PULSE 81; RESP 20; TEMP 97.6
[2017-08-28 00:42] LABS: SQUAMOUS EPITHIAL 3 /hpf (0-5); URINE BILIRUBIN NEGATIVE (NEGATIVE); URINE BLOOD NEGATIVE (NEGATIVE); URINE CLARITY Clear (Clear); URINE COLOR Yellow (YELLOW); URINE GLUCOSE (UA) NORMAL (Normal); URINE LEUKOCYTE ESTERASE NEG Leu/uL (Negative); URINE PROTEIN NEGATIVE (NEGATIVE); URINE UROBILINOGEN NORMAL mg/dL (0.2-1.0)
[2017-08-28 00:43] LABS: HCG,QUALITATIVE URINE NEGATIVE (NEGATIVE)
[2017-08-28 00:49] VITALS: O2SAT 98
== END 2017-08-28 00:58 | disposition home or self-care (01) ==
LOC: C.ER 22:27
DX: R11.2 Nausea with vomiting, unspecified (principal); R19.7 Diarrhea, unspecified
CPT/HCPCS: 80053; 81001; 83690; 84703; 85025; 96361; 96374; 96375; 96376; 99284; J2405; J7040

== ENCOUNTER 2017-10-06 17:22 | Emergency (ER) | payer MEDICAID ==
[2017-10-06 17:23] VITALS: BMI 32.6
[2017-10-06 17:41] VITALS: RESP 18; TEMP 99.6
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
[2017-10-06 18:27] VITALS: BP 124/70; PULSE 75
[2017-10-06 18:36] VITALS: O2SAT 100
--- NOTE | 2017-10-06 18:38 | RAD ---
PROCEDURE: Radiographs of the Left Forearm HISTORY: injury COMPARISON: None available. TECHNIQUE: Frontal and lateral views obtained. FINDINGS: BONES: Bone alignment and mineralization are normal. There is no acute displaced fracture or bone destruction. JOINT SPACES: Unremarkable. OTHER FINDINGS: None. IMPRESSION: No acute fracture or dislocation.
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
== END 2017-10-06 18:27 | disposition home or self-care (01) ==
LOC: C.ER 17:22
DX: S60.222A Contusion of left hand, initial encounter (principal); W19.XXXA Unspecified fall, initial encounter

== ENCOUNTER 2017-11-26 16:27 | Emergency (ER) | payer MEDICAID ==
[2017-11-26 17:01] VITALS: BMI 26.2
[2017-11-26 17:15] VITALS: O2SAT 99
--- NOTE | 2017-11-26 18:28 | C.PDOC ---
History Of Present Illness 32 y/o female presents to ED for evaluation of not feeling well for the past 2 weeks. Pt complains of generalized weakness, fatigue. Also reports weight loss over the course of 1 month because of decreased appetite due to emotional stress. Pt states she gets diarrhea when she tries to eat. Notes being seen by dentist last week for wisdom tooth procedure and was placed on Levaquin but she stopped taking it because she did not like the way it made her feel. Denies fever, or other complaints. Patient states that she "works out in a gym 7 hours a day, 6 days a week". Time Seen by Provider: 11/26/17 18:01 Chief Complaint (Nursing): GI Problem History Per: Patient History/Exam Limitations: no limitations Past Medical History Reviewed: Historical Data, Nursing Documentation, Vital Signs Vital Signs: Last Vital Signs Temp 99.3 F 11/26/17 17:03 Pulse 55 L 11/26/17 19:15 Resp 16 11/26/17 19:15 BP 95/62 L 11/26/17 19:15 Pulse Ox 99 11/26/17 19:18 - Medical History PMH: Anemia, Asthma, Chronic Pain (chronic abdominal pain ) Surgical History: Cholecystectomy Family History: States: Unknown Family Hx - Social History Hx Tobacco Use: Yes Hx Alcohol Use: No (Denies) Hx Substance Use: No - Immunization History Hx Tetanus Toxoid Vaccination: No Hx Influenza Vaccination: Yes (2017) Hx Pneumococcal Vaccination: Yes Review Of Systems Except As Marked, All Systems Reviewed And Found Negative. Constitutional: Positive for: Weakness, Weight loss. Negative for: Fever, Chills ENT: Negative for: Nose Discharge, Nose Congestion, Throat Pain Cardiovascular: Negative for: Chest Pain, Palpitations Respiratory: Negative for: Cough, Shortness of Breath Gastrointestinal: Positive for: Diarrhea. Negative for: Nausea, Vomiting, Abdominal Pain, Melena, Hematochezia Genitourinary: Negative for: Dysuria, Frequency, Hematuria Physical Exam - Physical Exam Appears: Non-toxic, No Acute Distress Skin: Normal Color, Warm, Dry Head: Atraumatic, Normacephalic Eye(s): bilateral: Normal Inspection Oral Mucosa: Moist Neck: Normal ROM, Supple Chest: Symmetrical, No Tenderness Cardiovascular: Rhythm Regular, No Murmur Respiratory: Normal Breath Sounds, No Rales, No Rhonchi, No Wheezing Gastrointestinal/Abdominal: Soft, No Tenderness, No Guarding, No Rebound Back: No CVA Tenderness Extremity: Normal ROM, No Deformity Neurological/Psych: Oriented x3, Normal Speech ED Course And Treatment - Laboratory Results Result Diagrams: 11/26/17 18:40 11/26/17 18:40 Lab Interpretation: Normal O2 Sat by Pulse Oximetry: 99 (RA) Pulse Ox Interpretation: Normal Progress Note: 7:15 Patient c/o feeling dizzy and lightheaded. HR 58 BP 95/67. IV fluids running. EKG ordered. Orthostatics abnormal initially. Improved after IV fluids. Reevaluation Time: 21:24 Reassessment Condition: Improved (Patient feels much better after 3 liters of NS IV.) Medical Decision Making Medical Decision Making: Plan: Blood work Urinalysis IV fluids Disposition Counseled Patient/Family Regarding: Studies Performed, Diagnosis, Need For Followup - Disposition Referrals: Shaik Goldman MD [Staff Provider] - Disposition: HOME/ ROUTINE Disposition Time: 21:25 Condition: IMPROVED Instructions: Orthostatic Hypotension Forms: [employer] (Azeri) - Clinical Impression Clinical Impression: Orthostatic hypotension - Scribe Statement The provider has reviewed the documentation as recorded by the Scribe KP All medical record entries made by the Scribe were at my direction and personally dictated by me. I have reviewed the chart and agree that the record accurately reflects my personal performance of the history, physical exam, medical decision making, and the department course for this patient. I have also personally directed, reviewed, and agree with the discharge instructions and disposition.
[2017-11-26 18:44] LABS: BASO # 0.1 K/uL (0.0-0.2); BASO % 0.8 % (0.0-2.0); EOS # 0.2 K/uL (0.0-0.7); EOS % 2.5 % (0.0-4.0); HEMOGLOBIN 13.4 g/dL (11.0-16.0); LYMPH # 2.6 K/uL (1.0-4.3); LYMPH % 39.1 % (20.0-40.0); MEAN CELL VOLUME 93.4 fL (81.0-99.0); MEAN CORPUSCULAR HEMOGLOBIN 31.6 pg (27.0-31.0); MEAN CORPUSCULAR HGB CONC 33.8 g/dL (33.0-37.0); MEAN PLATELET VOLUME 8.9 fL (7.2-11.7); MONO # 0.5 K/uL (0.0-0.8); MONO % 7.3 % (0.0-10.0); NEUT # 3.4 K/uL (1.8-7.0); NEUT % 50.3 % (50.0-75.0); NRBC % 0.1 % (0.0-2.0); RBC 4.23 Mil/uL (3.80-5.20); WHITE BLOOD COUNT 6.7 K/uL (4.8-10.8)
[2017-11-26] MEDS: Sodium Chloride 0.9% 1,000 ML IV SCH ×2 (18:45→19:45)
[2017-11-26 18:58] LABS: ALB/GLOB RATIO 1.6 (1.0-2.1); ALT/SGPT 33 U/L (9-52); AST/SGOT 19 U/L (14-36); BLOOD UREA NITROGEN 9 mg/dL (7-17); GFR AFRICAN-AMERICAN > 60; GFR NON-AFRICAN AMERICAN > 60
[2017-11-26 19:06] LABS: HCG,QUALITATIVE URINE NEGATIVE (NEGATIVE)
[2017-11-26 19:12] LABS: SQUAMOUS EPITHIAL 10 /hpf (0-5); URINE BILIRUBIN NEGATIVE (NEGATIVE); URINE BLOOD NEGATIVE (NEGATIVE); URINE CLARITY Hazy (Clear); URINE COLOR Yellow (YELLOW); URINE GLUCOSE (UA) NORMAL (Normal); URINE LEUKOCYTE ESTERASE NEG Leu/uL (Negative); URINE PROTEIN NEGATIVE (NEGATIVE); URINE UROBILINOGEN NORMAL mg/dL (0.2-1.0)
[2017-11-26 19:14] LABS: FREE T4 0.94 ng/dL (0.78-2.19)
[2017-11-26] MEDS ORDERED: Sodium Chloride 0.9% 1,000 ML IV ONE ×2 (20:31→21:34)
[2017-11-26 21:38] VITALS: BP 101/74; PULSE 72; RESP 18; TEMP 98.6
== END 2017-11-26 21:37 | disposition home or self-care (01) ==
LOC: C.ER 16:27
DX: I95.1 Orthostatic hypotension (principal); Z72.0 Tobacco use
CPT/HCPCS: 80053; 81001; 84439; 84443; 84703; 85025; 96360; 96361; 99284; J7030; J7040

== ENCOUNTER 2018-01-30 00:43 | Emergency (ER) | payer MEDICAID, OTHER ==
[2018-01-30 00:43] VITALS: BMI 26.2
[2018-01-30 01:43] LABS: HCG,QUALITATIVE URINE NEGATIVE (NEGATIVE)
[2018-01-30 01:44] LABS: SQUAMOUS EPITHIAL 9 /hpf (0-5); URINE BILIRUBIN NEGATIVE (NEGATIVE); URINE BLOOD NEGATIVE (NEGATIVE); URINE CALCIUM OXALATE CRYSTALS MANY /hpf (<OCC); URINE CLARITY Hazy (Clear); URINE COLOR Yellow (YELLOW); URINE GLUCOSE (UA) NORMAL (Normal); URINE LEUKOCYTE ESTERASE NEG Leu/uL (Negative); URINE PROTEIN NEGATIVE (NEGATIVE)
[2018-01-30] MEDS ORDERED: Lidocaine 5% Patch TD STA (01:49)
[2018-01-30] MEDS ORDERED: Lidocaine 5% Patch TD ONE (01:59)
--- NOTE | 2018-01-30 02:02 | C.PDOC ---
History Of Present Illness 32 y/o female presents to the ED complaining of bilateral back pain for the past 3 days. Patient feels as if her back is burning. Aggravated by movement, alleviated by rest. Reports taking Tylenol without relief. Patient denies any associated numbness, tingling, extremity weakness, fever, chills, nausea, vomiting, dysuria, or incontinence. She does report having suprapubic pain and urinary frequency. PMHx is significant for chronic pelvic pain with fibroids and ovarian cysts. Denies vaginal bleeding or discharge. Time Seen by Provider: 01/30/18 01:24 Chief Complaint (Nursing): Back Pain History Per: Patient History/Exam Limitations: no limitations Onset/Duration Of Symptoms: Days (x3) Current Symptoms Are (Timing): Still Present Associated Symptoms: None Past Medical History Reviewed: Historical Data, Nursing Documentation, Vital Signs Vital Signs: Last Vital Signs Temp 97.8 F 01/30/18 04:29 Pulse 86 01/30/18 04:29 Resp 17 01/30/18 04:29 BP 122/77 01/30/18 04:29 Pulse Ox 96 01/30/18 04:53 - Medical History PMH: Anemia, Asthma, Chronic Pain (chronic abdominal pain ) Surgical History: Denies: Cholecystectomy Family History: States: Unknown Family Hx - Social History Hx Tobacco Use: Yes Hx Alcohol Use: No (Denies) Hx Substance Use: No - Immunization History Hx Tetanus Toxoid Vaccination: No Hx Influenza Vaccination: Yes (2017) Hx Pneumococcal Vaccination: Yes Review Of Systems Constitutional: Negative for: Fever, Chills Gastrointestinal: Positive for: Abdominal Pain. Negative for: Nausea, Vomiting Genitourinary: Positive for: Frequency. Negative for: Dysuria, Incontinence, Hematuria Musculoskeletal: Positive for: Back Pain Neurological: Negative for: Weakness, Numbness, Incoordination, Other (tingling) Physical Exam - Physical Exam Appears: Non-toxic, No Acute Distress Skin: Normal Color, Warm, Dry Head: Atraumatic, Normacephalic Eye(s): bilateral: Normal Inspection, EOMI Nose: Normal Oral Mucosa: Moist Neck: Normal ROM, Supple Chest: Symmetrical Cardiovascular: Rhythm Regular Respiratory: Normal Breath Sounds, No Rales, No Rhonchi, No Wheezing, Other ( Lungs clear to auscultation) Gastrointestinal/Abdominal: Soft, Tenderness (suprapubic tenderness), No Distention, No Guarding, No Rebound Back: No CVA Tenderness, No Vertebral Tenderness, Paraspinal Tenderness (to bilateral paralumbar regions) Extremity: Normal ROM, No Tenderness, No Pedal Edema, No Calf Tenderness Extremity: Bilateral: Atraumatic, Normal Color And Temperature, Normal ROM Neurological/Psych: Oriented x3, Normal Speech, Normal Sensation, Other (No focal deficits) ED Course And Treatment O2 Sat by Pulse Oximetry: 96 (RA) Pulse Ox Interpretation: Normal - CT Scan/US CT abd/pelvis Other Rad Studies (CT/US): Read By Radiologist, Radiology Report Reviewed CT/US Interpretation: FINDINGS: Lung bases: Unremarkable. No mass. No consolidation. ABDOMEN: Liver: Unremarkable. Gallbladder and bile ducts: Unremarkable. No calcified stones. No ductal dilation. Pancreas: Unremarkable. No ductal dilation. Spleen: Unremarkable. No splenomegaly. Adrenals: Unremarkable. No mass. Kidneys and ureters: Unremarkable. No obstructing stones. No hydronephrosis. Stomach and bowel: Unremarkable. No obstruction. No mucosal thickening. PELVIS: Appendix: Normal appendix. Bladder: Unremarkable. No stones. Reproductive: Unremarkable as visualized. ABDOMEN and PELVIS: Intraperitoneal space: Unremarkable. No free air. No significant fluid collection. Bones/joints: No fracture. No dislocation. Soft tissues: Unremarkable. Vasculature: Unremarkable. No abdominal aortic aneurysm. Lymph nodes: Unremarkable. No enlarged lymph nodes. IMPRESSION: No acute findings. Progress Note: UA and cultures ordered. Urine HCG negative. Administered 10 mg Flexeril PO and Lidoderm patch x1. CT Abdomen/Pelvis ordered without contrast. On reassessment, patient is resting comfortably, with improvement of back pain. Patient remains afebrile, with no bony tenderness, extremity numbness or weakness, or abdominal pain. Patient is ambulatory in the emergency department with no signs of discomfort. Patient was advised to follow up with physician/ clinic in 1-2 days. Disposition Counseled Patient/Family Regarding: Studies Performed, Diagnosis, Need For Followup, Rx Given - Disposition Disposition: HOME/ ROUTINE Disposition Time: 04:14 Condition: STABLE Additional Instructions: FOllow up with your doctor in 1-2 days. Return to the ER if symptoms persist or worsen. Prescriptions: Cyclobenzaprine [Cyclobenzaprine HCl] 10 mg PO BID #10 tab Lidocaine 5% [Lidoderm] 1 patch TOP DAILY PRN #5 patch PRN Reason: Pain, Moderate (4-7) Instructions: Low Back Pain (DC) Forms: [employer] (Italian) - Clinical Impression Clinical Impression: Low back strain - PA / CHEMICAL INSPECTOR / Resident Statement MD/DO has reviewed & agrees with the documentation as recorded. - Scribe Statement The provider has reviewed the documentation as recorded by the Scribe (Tiny Monterroso) All medical record entries made by the Scribe were at my direction and personally dictated by me. I have reviewed the chart and agree that the record accurately reflects my personal performance of the history, physical exam, medical decision making, and the department course for this patient. I have also personally directed, reviewed, and agree with the discharge instructions and disposition.
[2018-01-30 04:29] VITALS: BP 122/77; PULSE 86; RESP 17; TEMP 97.8
[2018-01-30 04:53] VITALS: O2SAT 96
--- NOTE | 2018-01-30 09:38 | CT ---
Date of service: 01/30/2018 PROCEDURE: CT Abdomen and Pelvis without intravenous contrast HISTORY: Abdominal pain. Negative test (concurrent with this examination). COMPARISON: 01/07/2016. CT abdomen and pelvis TECHNIQUE: Unenhanced study. Neither oral nor intravenous contrast administered. Radiation dose: Total exam DLP = 771.09 mGy-cm. This CT exam was performed using one or more of the following dose reduction techniques: Automated exposure control, adjustment of the mA and/or kV according to patient size, and/or use of iterative reconstruction technique. FINDINGS: LOWER THORAX: Unremarkable. LIVER: Unremarkable. No gross lesion or ductal dilatation. GALLBLADDER AND BILE DUCTS: Unremarkable. PANCREAS: Unremarkable. No gross lesion or ductal dilatation. SPLEEN: Unremarkable. ADRENALS: Unremarkable. No mass. KIDNEYS AND URETERS: Unremarkable. No hydronephrosis. No solid mass. VASCULATURE: Unremarkable. No aortic aneurysm. BOWEL: Unremarkable. No obstruction. No gross mural thickening. APPENDIX: Unremarkable. Normal appendix. PERITONEUM: Unremarkable. No free fluid. No free air. LYMPH NODES: Unremarkable. No enlarged lymph nodes. BLADDER: Unremarkable. REPRODUCTIVE: Unremarkable. BONES: No acute fracture. OTHER FINDINGS: None. IMPRESSION: No significant or acute findings to account for/ related to the clinical presentation. Concordant results (preliminary interpretation) provided by [email or web address]. Procedure Completed: 03:26. Preliminary ([facility]) Report: 04:12. Final report 09:36 January 30 2018.
== END 2018-01-30 04:31 | disposition home or self-care (01) ==
LOC: C.ER 00:43
DX: S39.012A Strain of muscle, fascia and tendon of lower back, initial encounter (principal); X58.XXXA Exposure to other specified factors, initial encounter; Z72.0 Tobacco use

== ENCOUNTER 2018-02-11 13:46 | Emergency (ER) | payer MEDICAID ==
[2018-02-11 13:46] VITALS: BMI 26.2
[2018-02-11 15:09] LABS: BASO # 0.1 K/uL (0.0-0.2); EOS # 0.1 K/uL (0.0-0.7); EOS % 1.6 % (0.0-4.0); HEMOGLOBIN 13.7 g/dL (11.0-16.0); LYMPH # 2.6 K/uL (1.0-4.3); LYMPH % 31.6 % (20.0-40.0); MEAN CELL VOLUME 94.7 fL (81.0-99.0); MEAN CORPUSCULAR HEMOGLOBIN 32.5 pg (27.0-31.0); MEAN CORPUSCULAR HGB CONC 34.3 g/dL (33.0-37.0); MONO # 0.6 K/uL (0.0-0.8); MONO % 7.7 % (0.0-10.0); NEUT # 4.8 K/uL (1.8-7.0); NEUT % 58.1 % (50.0-75.0); NRBC % 0.1 % (0.0-2.0); RBC 4.22 Mil/uL (3.80-5.20); RED CELL DISTRIBUTION WIDTH 13.3 % (11.5-14.5); WHITE BLOOD COUNT 8.2 K/uL (4.8-10.8)
[2018-02-11 15:16] LABS: HCG,QUALITATIVE URINE NEGATIVE (NEGATIVE)
[2018-02-11 15:17] LABS: SQUAMOUS EPITHIAL 5 /hpf (0-5); URINE BACTERIA RARE (<OCC); URINE BILIRUBIN NEGATIVE (NEGATIVE); URINE BLOOD NEGATIVE (NEGATIVE); URINE CLARITY Clear (Clear); URINE COLOR Yellow (YELLOW); URINE GLUCOSE (UA) NORMAL (Normal); URINE LEUKOCYTE ESTERASE NEG Leu/uL (Negative); URINE PROTEIN NEGATIVE (NEGATIVE); URINE UROBILINOGEN NORMAL mg/dL (0.2-1.0)
[2018-02-11 15:30] LABS: BARBITURATES, UR NEGATIVE (NEGATIVE); BENZODIAZEPINES, UR NEGATIVE (NEGATIVE); OPIATES, UR NEGATIVE (NEGATIVE); PHENCYCLIDINE, UR NEGATIVE (NEGATIVE)
[2018-02-11 15:31] LABS: PARTIAL THROMBOPLASTIN TIME 34 SECONDS (21-34); PROTHROMBIN TIME 10.6 SECONDS (9.7-12.2)
[2018-02-11 15:37] LABS: D DIMER < 200 ng/mlDDU (0-243)
[2018-02-11 15:45] LABS: ALB/GLOB RATIO 1.5 (1.0-2.1); ALBUMIN 4.2 g/dL (3.5-5.0); ALT/SGPT 38 U/L (9-52); AST/SGOT 28 U/L (14-36); BLOOD UREA NITROGEN 13 mg/dL (7-17); CALCIUM 9.4 mg/dl (8.6-10.4); GFR NON-AFRICAN AMERICAN > 60; LIPASE 53 U/L (23-300)
[2018-02-11 15:53] LABS: B-TYPE NATRIURETIC PEPTIDE 63.6 pg/mL (0-450)
--- NOTE | 2018-02-11 15:55 | C.PDOC ---
History Of Present Illness 32yo female, comes to ER reporting bilateral lower extremity pain x 3-4 days. She denies any trauma to the site and reports no other pain. Patient has multiple ER visits due to vague, and bizarre pain with normal workups. She also has an extensive psychiatric history, including anxiety and depression. She has no additional medical complaints. Pt was up all night to prepare a paper for school, which she claims makes her drowsy and at times incoherent. Patient denies any recent narcotics use. Per @ bedside, pt with lower extremity pain and swelling after even 10 minute hike. No cardiax hx. Time Seen by Provider: 02/11/18 14:26 Chief Complaint (Nursing): Lower Extremity Problem/Injury History Per: Patient History/Exam Limitations: no limitations Onset/Duration Of Symptoms: Days Current Symptoms Are (Timing): Still Present Additional History Per: Patient Past Medical History Reviewed: Historical Data, Nursing Documentation, Vital Signs Vital Signs: Last Vital Signs Temp 98.7 F 02/11/18 13:50 Pulse 91 H 02/11/18 13:50 Resp 16 02/11/18 13:50 BP 116/73 02/11/18 13:50 Pulse Ox 97 02/11/18 13:50 - Medical History PMH: Anemia, Asthma, Chronic Pain (chronic abdominal pain ) Surgical History: Denies: Cholecystectomy Family History: States: No Known Family Hx - Social History Hx Tobacco Use: Yes Hx Alcohol Use: No (Denies) Hx Substance Use: No - Immunization History Hx Tetanus Toxoid Vaccination: No Hx Influenza Vaccination: Yes (2017) Hx Pneumococcal Vaccination: Yes Review Of Systems Except As Marked, All Systems Reviewed And Found Negative. Cardiovascular: Negative for: Chest Pain Respiratory: Negative for: Shortness of Breath Musculoskeletal: Positive for: Leg Pain Neurological: Negative for: Weakness, Numbness Physical Exam - Physical Exam Appears: Non-toxic Skin: Normal Color Head: Atraumatic, Normacephalic Eye(s): bilateral: Other (dialated pupils) Oral Mucosa: Moist Neck: Normal ROM Chest: Symmetrical Cardiovascular: Rhythm Regular Respiratory: Normal Breath Sounds Gastrointestinal/Abdominal: Normal Exam, Soft Extremity: Normal ROM, No Pedal Edema, No Calf Tenderness, No Deformity, No Swelling, Other (obese lower extremities; no edema or erythema) Neurological/Psych: Oriented x3 ED Course And Treatment - Laboratory Results Result Diagrams: 02/11/18 15:05 02/11/18 15:05 Lab Interpretation: Normal (trop/d-dimer/bnp neg., UA neg, tox + THC only,) Urine POC: Negative ECG: Interpreted By Me ECG Rhythm: Sinus Rhythm ECG Interpretation: Normal Rate From EC O2 Sat by Pulse Oximetry: 97 (RA) Pulse Ox Interpretation: Normal - Radiology CXR: Interpreted by Me CXR Interpretation: Yes: No Acute Disease Progress Note: intermittently asleep and apparently pain free. Reevaluation Time: 16:15 Reassessment Condition: Improved Medical Decision Making Medical Decision Making: Plan: * Labs * UA * CXR * EKG Patient reports she is allergic to most pain relief medications except for narcotics. [employer] reviewed and no narcotics prescriptions noted within the past 2-3 months. 1615: pt NAD, legs remain obese without edema LOW susp of DVT/CHF, labs normal CXR without congestion ? chronic pain issues vs venous insuffiency of legs vs legs obese. Consider TEDS stockings and lower salt diet. Disposition Doctor Will See Patient In The: Office Counseled Patient/Family Regarding: Studies Performed, Diagnosis - Disposition Disposition: HOME/ ROUTINE Disposition Time: 16:17 Condition: GOOD Forms: [employer] (Taiwanese) - Clinical Impression Clinical Impression: Leg pain, diffuse - Scribe Statement The provider has reviewed the documentation as recorded by the Jun Jackson Provider Attestation: All medical record entries made by the Jun were at my direction and personally dictated by me. I have reviewed the chart and agree that the record accurately reflects my personal performance of the history, physical exam, medical decision making, and the department course for this patient. I have also personally directed, reviewed, and agree with the discharge instructions and disposition.
[2018-02-11 16:32] VITALS: BP 104/67; PULSE 76; RESP 18; TEMP 98.8; O2SAT 99
--- NOTE | 2018-02-11 17:21 | RAD ---
Date of service: 02/11/2018 PROCEDURE: CHEST RADIOGRAPH, 1 VIEW HISTORY: leg edema, ? CHF COMPARISON: Comparison chest 10/31/2014. FINDINGS: LUNGS: Clear. PLEURA: No pneumothorax or pleural fluid seen. CARDIOVASCULAR: Normal. OSSEOUS STRUCTURES: No significant abnormalities. VISUALIZED UPPER ABDOMEN: Normal. OTHER FINDINGS: None. IMPRESSION: No acute infiltrates.
== END 2018-02-11 16:32 | disposition home or self-care (01) ==
LOC: C.ER 13:46
DX: M79.662 Pain in left lower leg (principal); M79.661 Pain in right lower leg; Z72.0 Tobacco use

== ENCOUNTER 2018-05-15 10:32 | Emergency (ER) | payer MEDICAID, OTHER ==
[2018-05-15 10:39] VITALS: BMI 27.8
[2018-05-15] MEDS ORDERED: Sodium Chloride 0.9% 1,000 ML IV ONE (11:32)
[2018-05-15 11:43] LABS: SQUAMOUS EPITHIAL 67 /hpf (0-5); URINE BACTERIA RARE (<OCC); URINE BILIRUBIN NEGATIVE (NEGATIVE); URINE BLOOD 1+ (NEGATIVE); URINE CLARITY Hazy (Clear); URINE COLOR Amber (YELLOW); URINE GLUCOSE (UA) NORMAL (Normal); URINE LEUKOCYTE ESTERASE TRACE Leu/uL (Negative); URINE PROTEIN 1+ mg/dL (NEGATIVE); URINE UROBILINOGEN NORMAL mg/dL (0.2-1.0)
[2018-05-15 11:47] LABS: BASO # 0.1 K/uL (0.0-0.2); BASO % 1.1 % (0.0-2.0); EOS # 0.1 K/uL (0.0-0.7); EOS % 1.3 % (0.0-4.0); HEMOGLOBIN 13.4 g/dL (11.0-16.0); LYMPH # 1.9 K/uL (1.0-4.3); LYMPH % 36.5 % (20.0-40.0); MEAN CELL VOLUME 95.3 fL (81.0-99.0); MEAN CORPUSCULAR HEMOGLOBIN 32.1 pg (27.0-31.0); MEAN CORPUSCULAR HGB CONC 33.7 g/dL (33.0-37.0); MEAN PLATELET VOLUME 8.9 fL (7.2-11.7); MONO # 0.5 K/uL (0.0-0.8); MONO % 9.1 % (0.0-10.0); NEUT # 2.7 K/uL (1.8-7.0); NRBC % 0.1 % (0.0-2.0); RBC 4.17 Mil/uL (3.80-5.20); RED CELL DISTRIBUTION WIDTH 13.9 % (11.5-14.5); WHITE BLOOD COUNT 5.2 K/uL (4.8-10.8)
--- NOTE | 2018-05-15 11:56 | C.PDOC ---
History Of Present Illness 32 year old female presents to the emergency department with complaints of 3 weeks of suprapubic and pelvic abdominal pain associated with sexual intercourse. Patient describes the pain as burning, and states that she developed nausea, vomiting, diarrhea, and body aches over the last week. Patient denies GI bleed, chest pain, shortness of breath, and back pain. Time Seen by Provider: 05/15/18 10:45 Chief Complaint (Nursing): Abdominal Pain History Per: Patient History/Exam Limitations: no limitations Onset/Duration Of Symptoms: Other (3 weeks) Current Symptoms Are (Timing): Still Present Context: Other (sexual intercourse) Location Of Pain/Discomfort: Suprapubic, Other (pelvic) Quality Of Discomfort: Burning, "Pain" Associated Symptoms: Nausea, Vomiting, Diarrhea. denies: Back Pain, Chest Pain, Other (shortness of breath, GI bleed) Past Medical History Reviewed: Historical Data, Nursing Documentation, Vital Signs Vital Signs: Last Vital Signs Temp 98.2 F 05/15/18 10:39 Pulse 71 05/15/18 10:39 Resp 20 05/15/18 10:39 BP 111/70 05/15/18 10:39 Pulse Ox 98 05/15/18 10:39 - Medical History PMH: Anemia, Asthma, Chronic Pain (chronic abdominal pain ) Denies: Chronic Kidney Disease Surgical History: No Surg Hx Denies: Cholecystectomy Family History: States: No Known Family Hx - Social History Hx Tobacco Use: Yes Hx Alcohol Use: No (Denies) Hx Substance Use: No - Immunization History Hx Tetanus Toxoid Vaccination: No Hx Influenza Vaccination: No (2017) Hx Pneumococcal Vaccination: Yes Review Of Systems Except As Marked, All Systems Reviewed And Found Negative. Constitutional: Negative for: Fever Cardiovascular: Negative for: Chest Pain Respiratory: Negative for: Shortness of Breath Gastrointestinal: Positive for: Nausea, Vomiting, Abdominal Pain, Diarrhea. Negative for: Melena, Hematochezia Musculoskeletal: Negative for: Back Pain Physical Exam - Physical Exam Appears: Well, Non-toxic, No Acute Distress Skin: Normal Color, Warm, Dry Head: Atraumatic, Normacephalic Eye(s): bilateral: Normal Inspection, PERRL, EOMI Neck: Normal, Supple Chest: Symmetrical, No Tenderness Cardiovascular: Rhythm Regular, No Murmur Respiratory: Normal Breath Sounds, No Rales, No Rhonchi, No Wheezing Gastrointestinal/Abdominal: Soft, Tenderness (mild pelvic tenderness) Pelvic: Normal External Exam, Vaginal Discharge (positive white/ruiz discharge ), Cervical Motion Tenderness, No Adnexal Tenderness, 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 Bloodwork. NaCl IV Fluids. Tylenol 650mg PO. Zofran 4mg IVP. Urine Culture. Urinalysis Disposition - Disposition Referrals: Ignacio Live MD [Staff Provider] - [facility] [Outside] [facility] [Outside] Disposition: HOME/ ROUTINE Disposition Time: 14:09 Condition: STABLE Additional Instructions: Follow up with the medical doctor within 1-2 days. Return if worsened Prescriptions: Acetaminophen [Tylenol] 325 mg PO Q6 PRN #30 tab PRN Reason: Pain, Mild (1-3) Doxycycline Monohydrate 100 mg PO BID #27 tablet metroNIDAZOLE [Flagyl] 500 mg PO BID #27 tab Instructions: Pelvic Inflammatory Disease Forms: [employer] (Urdu) - Clinical Impression Clinical Impression: Pelvic inflammatory disease (PID) - PA / CORRESPONDENCE RENEW CLERK / Resident Statement MD/DO has reviewed & agrees with the documentation as recorded. - Scribe Statement The provider has reviewed the documentation as recorded by the Scribe (Tim Paris) All medical record entries made by the Scribe were at my direction and personally dictated by me. I have reviewed the chart and agree that the record accurately reflects my personal performance of the history, physical exam, medical decision making, and the department course for this patient. I have also personally directed, reviewed, and agree with the discharge instructions and disposition.
[2018-05-15 12:34] LABS: ALB/GLOB RATIO 1.6 (1.0-2.1); ALBUMIN 4.4 g/dL (3.5-5.0); ALT/SGPT 22 U/L (9-52); AST/SGOT 28 U/L (14-36); BLOOD UREA NITROGEN 14 mg/dL (7-17); CALCIUM 8.9 mg/dl (8.6-10.4); GFR NON-AFRICAN AMERICAN > 60; LIPASE 35 U/L (23-300)
[2018-05-15] MEDS ORDERED: cefTRIAXone 250 MG, Lidocaine Hydrochloride 1% 1 ML IM ONE (13:27)
[2018-05-15 14:25] VITALS: BP 114/70; PULSE 61; RESP 18; TEMP 98.4
[2018-05-20 06:13] VITALS: O2SAT 98
== END 2018-05-15 14:25 | disposition home or self-care (01) ==
LOC: C.ER 10:32
DX: N73.9 Female pelvic inflammatory disease, unspecified (principal); Z72.0 Tobacco use
CPT/HCPCS: 80053; 81001; 83690; 85025; 87086; 96361; 96372; 96374; 99284; J0696; J2405; J7030

== ENCOUNTER 2018-05-21 16:16 | Inpatient (IN) | payer MEDICAID ==
[2018-05-21 16:17] VITALS: BMI 27.8
[2018-05-21] MEDS ORDERED: Sodium Chloride 0.9% 1,000 ML ONE ×2 (18:14→19:59)
[2018-05-21 18:51] LABS: BASO % 0.6 % (0.0-2.0); EOS % 0.6 % (0.0-4.0); LYMPH # 2.8 K/uL (1.0-4.3); LYMPH % 35.8 % (20.0-40.0); MEAN CELL VOLUME 95.2 fL (81.0-99.0); MEAN CORPUSCULAR HEMOGLOBIN 31.8 pg (27.0-31.0); MEAN CORPUSCULAR HGB CONC 33.4 g/dL (33.0-37.0); MEAN PLATELET VOLUME 9.7 fL (7.2-11.7); MONO # 0.5 K/uL (0.0-0.8); NEUT # 4.4 K/uL (1.8-7.0); NRBC % 0.1 % (0.0-2.0); RBC 4.39 Mil/uL (3.80-5.20); WHITE BLOOD COUNT 7.8 K/uL (4.8-10.8)
[2018-05-21 19:12] LABS: ALB/GLOB RATIO 1.6 (1.0-2.1); ALBUMIN 4.8 g/dL (3.5-5.0); ALT/SGPT 33 U/L (9-52); AMYLASE 64 U/L (30-110); AST/SGOT 29 U/L (14-36); BLOOD UREA NITROGEN 13 mg/dL (7-17); CALCIUM 9.6 mg/dl (8.6-10.4); GFR NON-AFRICAN AMERICAN > 60; LIPASE 66 U/L (23-300)
[2018-05-21] MEDS ORDERED: Sodium Chloride 0.9% 1,000 ML IV ONE (19:25)
--- NOTE | 2018-05-21 19:27 | C.PDOC ---
History Of Present Illness 32 year old female presents to the ED c/o vomiting and diarrhea for the past 2 weeks. Patient was seen in the ED on 05/15 and states she is not feeling better. Patient also reports she saw small streaks of blood in her vomit and diarrhea. Patient also feeling lightheaded. Patient denies fever, chills, abdominal pain, CP, SOB, rash, weakness, numbness. Time Seen by Provider: 05/21/18 19:25 Chief Complaint (Nursing): Abdominal Pain History Per: Patient History/Exam Limitations: no limitations Onset/Duration Of Symptoms: Days Current Symptoms Are (Timing): Still Present Context: Other Severity: Moderate Pain Scale Rating Of: 4 Location Of Pain/Discomfort: Diffuse Radiation Of Pain To:: None Quality Of Discomfort: Cramping, Burning Associated Symptoms: Nausea, Vomiting, Diarrhea. denies: Loss Of Appetite, Constipation, Urinary Symptoms Exacerbating Factors: None Alleviating Factors: None Last Bowel Movement: Today Recent travel outside of the [place]: No Additional History Per: Patient Abnormal Vaginal Bleeding: No Past Medical History Reviewed: Historical Data, Nursing Documentation, Vital Signs Vital Signs: Last Vital Signs Temp 98 F 05/21/18 16:43 Pulse 105 H 05/21/18 16:43 Resp 18 05/21/18 16:43 BP 133/83 05/21/18 16:43 Pulse Ox 97 05/21/18 16:43 - Medical History PMH: Anemia, Asthma, Chronic Pain (chronic abdominal pain ) Denies: Chronic Kidney Disease Surgical History: No Surg Hx Denies: Cholecystectomy Family History: States: Unknown Family Hx - Social History Hx Tobacco Use: Yes Hx Alcohol Use: No (Denies) Hx Substance Use: No - Immunization History Hx Tetanus Toxoid Vaccination: Yes Hx Influenza Vaccination: Yes Hx Pneumococcal Vaccination: Yes Review Of Systems Constitutional: Negative for: Fever, Chills ENT: Negative for: Throat Pain Cardiovascular: Negative for: Chest Pain, Palpitations Respiratory: Negative for: Cough, Shortness of Breath Gastrointestinal: Positive for: Nausea, Vomiting, Diarrhea Genitourinary: Negative for: Dysuria, Hematuria, Vaginal Discharge Musculoskeletal: Negative for: Back Pain Skin: Negative for: Rash Neurological: Negative for: Weakness, Numbness, Headache Psych: Negative for: Anxiety Physical Exam - Physical Exam Appears: Non-toxic, No Acute Distress Skin: Warm, Dry Head: Normacephalic Eye(s): bilateral: Normal Inspection Oral Mucosa: Dry Neck: Supple Chest: Symmetrical Cardiovascular: Rhythm Regular Respiratory: No Rales, No Rhonchi, No Wheezing Gastrointestinal/Abdominal: Soft, No Tenderness, No Distention, No Guarding, No Rebound Back: No CVA Tenderness Extremity: Bilateral: Atraumatic, Normal Color And Temperature, Normal ROM Neurological/Psych: Oriented x3, Normal Speech, Normal Cognition Gait: Steady ED Course And Treatment - Laboratory Results Result Diagrams: 05/21/18 18:47 05/21/18 18:47 Lab Results: Total Bilirubin 0.4 mg/dL (0.2-1.3) 05/21/18 18:47 AST 29 U/L (14-36) 05/21/18 18:47 ALT 33 U/L (9-52) 05/21/18 18:47 Alkaline Phosphatase 69 U/L (38-126) 05/21/18 18:47 Total Protein 7.7 g/dL (6.3-8.3) 05/21/18 18:47 Albumin 4.8 g/dL (3.5-5.0) 05/21/18 18:47 Globulin 3.0 gm/dL (2.2-3.9) 05/21/18 18:47 Albumin/Globulin Ratio 1.6 (1.0-2.1) 05/21/18 18:47 Amylase 64 U/L (30-110) 05/21/18 18:47 Lipase 66 U/L (23-300) 05/21/18 18:47 O2 Sat by Pulse Oximetry: 97 (ON RA) Pulse Ox Interpretation: Normal - CT Scan/US CT abd/pelvis Other Rad Studies (CT/US): Read By Radiologist, Radiology Report Reviewed CT/US Interpretation: EXAM: CT Abdomen and Pelvis with IV contrast. CLINICAL HISTORY: Nausea, vomiting. TECHNIQUE: Axial computed tomography images of the abdomen and pelvis with intravenous contrast. 1066 mGy-cm. CONTRAST: With; agsq013 100ml. COMPARISON: None provided. FINDINGS: LUNG BASES: The lung bases appear clear. No pleural effusions are seen. LIVER: Unremarkable. GALLBLADDER AND BILE DUCTS: The gallbladder appears within normal limits. No radioopaque gallstones are seen. No biliary ductal dilatation is evident. PANCREAS: Unremarkable. SPLEEN: Unremarkable. ADRENAL GLANDS: Unremarkable. KIDNEYS, URETERS, AND BLADDER: The kidneys appear within normal limits. There is no hydronephrosis or hydroureter. No urinary calculi are seen. STOMACH AND BOWEL: Thick walled fluid filled duodenum and loops of jejunum as well as ileum compatible with panenteritis. Infectious and inflammatory etiologies are considered. Consider consultation with GI service. APPENDIX: No evidence of acute appendicitis on CT examination. PERITONEUM: No free fluid. No free air. LYMPH NODES: No lymphadenopathy is evident. REPRODUCTIVE: Uterus and ovaries are unremarkable. VASCULATURE: No evidence of abdominal aortic aneurysm. BONES: No aggressive appearing osseous lesion. No acute osseous pathology evident. IMPRESSION: Panenteritis. Infectious and inflammatory etiologies are considered. Consider consultation with GI service. . Electronically signed on May 21, 2018 9:19:38 PM EST by: Brett Lara M.D., MARTHA Certified By ABR & CBCCT. Fellowship Trained MRI and CT Specialist Progress Note: Plan: - Labs. - CT abd/pelvis. - Protonix 40 mg IVP. - IV fluids. - Zofran 4 mg IVP. - UA Disposition Discussed With DrGlen: Janett Ramirez Comment: accepted the pt on his service and took over the care at 9:37PM Doctor Will See Patient In The: Hospital Counseled Patient/Family Regarding: Studies Performed, Diagnosis - Disposition Disposition: HOSPITALIZED Disposition Time: 19:26 Condition: FAIR Forms: [employer] (Ugandan) - POA Present On Arrival: Poor Glycemic Control - Clinical Impression Clinical Impression: Inflammatory bowel disease, Diarrhea, Nausea, vomiting and diarrhea, Enteritis - Scribe Statement The provider has reviewed the documentation as recorded by the Scribgenna Felix All medical record entries made by the Kavonibgenna were at my direction and personally dictated by me. I have reviewed the chart and agree that the record accurately reflects my personal performance of the history, physical exam, medical decision making, and the department course for this patient. I have also personally directed, reviewed, and agree with the discharge instructions and disposition.
[2018-05-21 20:35] LABS: SQUAMOUS EPITHIAL 2 /hpf (0-5); URINE BILIRUBIN NEGATIVE (NEGATIVE); URINE BLOOD 3+ (NEGATIVE); URINE CLARITY Clear (Clear); URINE COLOR Yellow (YELLOW); URINE GLUCOSE (UA) NORMAL (Normal); URINE LEUKOCYTE ESTERASE NEG Leu/uL (Negative); URINE PROTEIN NEGATIVE (NEGATIVE); URINE UROBILINOGEN NORMAL mg/dL (0.2-1.0)
[2018-05-21 20:36] LABS: HCG,QUALITATIVE URINE NEGATIVE (NEGATIVE)
[2018-05-21] MEDS ORDERED: Piperacillin/Tazobact 3.375 gm 100 ML IVPB STA (20:41)
[2018-05-21] MEDS ORDERED: Iodixanol 320 MG/ML 100 ML BOTTLE IV ONE (21:01)
[2018-05-21] MEDS ORDERED: Piperacillin/Tazobact 3.375 gm 100 ML IVPB ONE (21:22)
[2018-05-21] MEDS ORDERED: metroNIDAZOLE IV 500 mg/100 ml 500 MG/100 ML BAG IVPB SCH (21:45)
[2018-05-21] MEDS ORDERED: metroNIDAZOLE IV 500 mg/100 ml 500 MG/100 ML BAG ONE (22:33)
--- NOTE | 2018-05-22 03:33 | CP.PCM.PCO ---
Physician Communication Note - Physician Communication Note Physician Communication Note: Please call admitting Doctor for admitting orders.
[2018-05-22] MEDS ORDERED: Ciprofloxacin 400mg/200ml D5W 400 MG/200 ML BAG IVPB SCH (04:30)
[2018-05-22] MEDS: metroNIDAZOLE IV 500 mg/100 ml 500 MG/100 ML BAG IVPB SCH ×3 (06:06→21:05)
--- NOTE | 2018-05-22 09:10 | CT ---
Date of service: 05/21/2018 PROCEDURE: CT Abdomen and Pelvis with contrast HISTORY: abd pain, nausea vomiting COMPARISON: None. TECHNIQUE: Contrast dose: Radiation dose: Total exam DLP = 1066.06 mGy-cm. This CT exam was performed using one or more of the following dose reduction techniques: Automated exposure control, adjustment of the mA and/or kV according to patient size, and/or use of iterative reconstruction technique. FINDINGS: LOWER THORAX: Unremarkable. LIVER: Unremarkable. No gross lesion or ductal dilatation. GALLBLADDER AND BILE DUCTS: Unremarkable. PANCREAS: Unremarkable. No gross lesion or ductal dilatation. SPLEEN: Unremarkable. ADRENALS: Unremarkable. No mass. KIDNEYS AND URETERS: Unremarkable. No hydronephrosis. No solid mass. VASCULATURE: Unremarkable. No aortic aneurysm. No aortic atherosclerotic calcification or mural plaque present. BOWEL: Unremarkable. No obstruction. No gross mural thickening. APPENDIX: Normal appendix. PERITONEUM: Unremarkable. No free fluid. No free air. LYMPH NODES: Unremarkable. No enlarged lymph nodes. BLADDER: Unremarkable. REPRODUCTIVE: Unremarkable. BONES: No acute fracture. OTHER FINDINGS: None. IMPRESSION: Unremarkable contrast enhanced CT of the abdomen and pelvis.
[2018-05-22] MEDS: Ciprofloxacin 400mg/200ml D5W 400 MG/200 ML BAG IVPB SCH ×2 (10:29→22:42)
[2018-05-22] MEDS: Enoxaparin 40 mg Syringe SC SCH (10:30)
[2018-05-22] MEDS: Dextrose 5%/0.45% NS 1,000 ML IV SCH ×2 (11:31→21:11)
--- NOTE | 2018-05-22 11:49 | CP.PCM.CON ---
History of Present Illness - History of Present Illness History of Present Illness: 32 year old female presents to the ED c/o vomiting and diarrhea for the past 2 weeks. Patient was seen in the ED on 05/15 and states she is not feeling better. Patient also reports she saw small streaks of blood in her vomit and diarrhea. - Medical History PMH: Endometriosis Anemia, Asthma, Chronic Pain (chronic abdominal pain ) Denies: Chronic Kidney Disease Surgical History: myomectomy Denies: Cholecystectomy Family History: States: Unknown Family Hx Review of Systems - Review of Systems All systems: reviewed and no additional remarkable complaints except - Constitutional Constitutional: As Per HPI - EENT Eyes: absent: As Per HPI, Blind Spots, Blurred Vision, Change in Vision, Decreas ed Night Vision, Diplopia, Discharge, Dry Eye, Exophthalmos, Floaters, Irritation, Itchy Eyes, Loss of Peripheral Vision, Pain, Photophobia, Requires Corrective Lenses, Sees Flashes, Spots in Vision, Tunnel Vision, Other Visual Disturbances, Loss of Vision, Other Ears: absent: As Per HPI, Decreased Hearing, Ear Discharge, Ear Pain, Tinnitus, Abnormal Hearing, Disequilibrium, Dizziness, Other Nose/Mouth/Throat: absent: As Per HPI, Epistaxis, Nasal Congestion, Nasal Discharge, Nasal Obstruction, Nasal Trauma, Nose Pain, Post Nasal Drip, Sinus Pain, Sinus Pressure, Bleeding Gums, Change in Voice, Dental Pain, Dry Mouth, Dysphagia, Halitosis, Hoarsness, Lip Swelling, Mouth Lesions, Mouth Pain, Odynophagia, Sore Throat, Throat Swelling, Tongue Swelling, Facial Pain, Neck Pain, Neck Mass, Other - Breasts Breasts: absent: As Per HPI, Change in Shape, Mass, Pain, Nipple Discharge, Nipple Inversion, Skin Changes, Swelling, Other - Cardiovascular Cardiovascular: absent: As Per HPI, Acrocyanosis, Chest Pain, Chest Pain at Rest, Chest Pain with Activity, Claudication, Diaphoresis, Dyspnea, Dyspnea on Exertion, Edema, Irregular Heart Rhythm, Pain Radiating to Arm/Neck/Jaw, Leg Edema, Leg Ulcers, Lightheadedness, Orthopnea, Palpitations, Paroxysmal Nocturnal Dyspnea, Pedal Edema, Radiating Pain, Rapid Heart Rate, Slow Heart Rate, Syncope, Other - Respiratory Respiratory: As Per HPI - Gastrointestinal Gastrointestinal: As Per HPI - Genitourinary Genitourinary: As Per HPI - Reproductive: Female Reproductive:Female: As Per HPI - Menstruation Menstruation: As Per HPI - Musculoskeletal Musculoskeletal: absent: As Per HPI, Abnormal Gait, Arthralgias, Atrophy, Back Pain, Deformity, Joint Swelling, Limited Range of Motion, Loss of Height, Muscle Cramps, Muscle Weakness, Myalgias, Neck Pain, Numbness, Radiating Pain into Limb, Stiffness, Tingling, Other - Integumentary Integumentary: absent: As Per HPI, Acne, Alopecia, Bleeding Lesions, Change in Hair, Change in Nails, Change in Pigmentation, Changing Lesions, Dry Skin, Erythema, Furuncle, Hirsutism, Lesions, New Lesions, Non-Healing Lesions, Photosensitivity, Pruritus, Rash, Skin Pain, Skin Ulcer, Sores, Striae, Swelling, Unusual Bruising, Wounds, Jaundice, Other - Neurological Neurological: absent: As Per HPI, Abnormal Gait, Abnormal Hearing, Abnormal Movements, Abnormal Speech, Behavioral Changes, Burning Sensations, Confusion, Convulsions, Disequilibrium, Dizziness, Numbness, Focal Weakness, Frequent Falls, Headaches, Lack of Coordination, Loss of Vision, Memory Loss, Paresthesias, Radicular Pain, Restless Legs, Sensory Deficit, Syncope, Tingling, Tremor, Vertigo, Weakness, Other Visual Disturbances, Other - Psychiatric Psychiatric: absent: As Per HPI, Abnormal Sleep Pattern, Anhedonia, Anxiety, Auditory Hallucinations, Behavioral Changes, Change in Appetite, Change in Libido, Confusion, Depression, Difficulty Concentrating, Hallucinations, Homicidal Ideation, Hopelessness, Irritability, Memory Loss, Mood Swings, Panic Attacks, Paranoia, Suicidal Ideation, Visual Hallucinations, Tactile Hallucinations, Other - Endocrine Endocrine: absent: As Per HPI, Change in Body Appearance, Change in Libido, Cold Intolorance, Deepening of Voice, Excessive Sweating, Fatigue, Flushing, Heat Intolorance, Increase in Ring/Shoe/Hat Size, Palpitations, Polydipsia, Polyphagia, Polyuria, Other Past Patient History - Infectious Disease Hx of Infectious Diseases: None - Past Medical History & Family History Past Medical History?: Yes - Past Social History Smoking Status: Former Smoker - CARDIAC Hx Cardiac Disorders: No - PULMONARY Hx Respiratory Disorders: Yes Hx Asthma: Yes - NEUROLOGICAL Hx Neurological Disorder: No - HEENT Hx HEENT Problems: No - RENAL Hx Chronic Kidney Disease: No - ENDOCRINE/METABOLIC Hx Endocrine Disorders: Yes (SEE COMMENT) Other/Comment: Hx PCOS. Hx uterine fibroids laproscopy - HEMATOLOGICAL/ONCOLOGICAL Hx Blood Disorders: Yes Hx Anemia: Yes - INTEGUMENTARY Hx Dermatological Problems: No - MUSCULOSKELETAL/RHEUMATOLOGICAL Hx Falls: No - GASTROINTESTINAL Hx Gastrointestinal Disorders: No - GENITOURINARY/GYNECOLOGICAL Hx Genitourinary Disorders: Yes (SEE COMMENT) Other/Comment: Hx Uterine fibroids; PCOS - PSYCHIATRIC Hx Substance Use: No - SURGICAL HISTORY Hx Cholecystectomy: No - ANESTHESIA Hx Anesthesia: Yes Hx Anesthesia Reactions: No Meds Allergies/Adverse Reactions: Allergies Allergy/AdvReac Type Severity Reaction Status Date / Time peanut Allergy Severe ANAPHYLAXIS Verified 05/21/18 16:42 ibuprofen Allergy Intermediate ANAPHYLAXIS Verified 05/21/18 16:42 naproxen sodium [From Aleve] Allergy Intermediate ITCHING Verified 05/21/18 16:42 peach Allergy RASH Verified 05/21/18 16:42 NSAIDS (Non-Steroidal AdvReac Intermediate NAUSEA Verified 05/21/18 16:42 Anti-Inflamma tussfed Allergy Mild RASH Uncoded 05/21/18 16:42 - Medications Medications: Current Medications Enoxaparin Sodium (Lovenox) 40 mg SC DAILY [facility] Last Admin: 05/22/18 10:30 Dose: 40 mg Metronidazole (Flagyl) 500 mg in 100 mls @ 100 mls/hr IVPB Q8 [facility]; Protocol Last Admin: 05/22/18 06:06 Dose: 100 mls/hr Ciprofloxacin (Cipro 400mg/200ml Dsw) 400 mg in 200 mls @ 133 mls/hr IVPB Q12H [facility]; Protocol Last Admin: 05/22/18 10:29 Dose: 133 mls/hr Dextrose/Sodium Chloride (Dextrose 5%/0.45% Ns 1000 Ml) 1,000 mls @ 100 mls/hr IV .Q10H [facility] Last Admin: 05/22/18 11:31 Dose: 100 mls/hr Morphine Sulfate (Morphine) 1 mg IVP Q6 PRN PRN Reason: Pain, moderate (4-7) Last Admin: 05/22/18 10:32 Dose: 1 mg Ondansetron HCl (Zofran Inj) 4 mg IVP Q6 PRN PRN Reason: Nausea/Vomiting Physical Exam - Constitutional Appears: Non-toxic, Chronically Ill - Head Exam Head Exam: NORMOCEPHALIC - Eye Exam Eye Exam: absent: Scleral icterus - ENT Exam ENT Exam: Mucous Membranes Dry - Neck Exam Neck exam: Negative for: Lymphadenopathy - Respiratory Exam Respiratory Exam: Decreased Breath Sounds - Cardiovascular Exam Cardiovascular Exam: REGULAR RHYTHM - GI/Abdominal Exam GI & Abdominal Exam: Diminished Bowel Sounds, Guarding, Soft, Tenderness. absent: Rebound, Rigid - Rectal Exam Rectal Exam: Deferred - Exam Exam: NORMAL INSPECTION - Extremities Exam Extremities exam: Negative for: pedal edema - Back Exam Back exam: absent: CVA tenderness (L), CVA tenderness (R) - Neurological Exam Neurological exam: Alert, CN II-XII Intact, Oriented x3, Reflexes Normal - Psychiatric Exam Psychiatric exam: Normal Mood - Skin Skin Exam: Dry Results - Vital Signs Recent Vital Signs: Last Vital Signs Temp 97.9 F 05/22/18 08:06 Pulse 63 05/22/18 08:06 Resp 20 05/22/18 08:06 BP 97/60 L 05/22/18 08:06 Pulse Ox 99 05/22/18 08:06 - Labs Result Diagrams: 05/21/18 18:47 05/21/18 18:47 Labs: Laboratory Results - last 24 hr 05/21/18 05/21/18 05/21/18 18:47 18:47 20:09 WBC 7.8 RBC 4.39 Hgb 14.0 Hct 41.8 MCV 95.2 MCH 31.8 H MCHC 33.4 RDW 14.0 Plt Count 243 MPV 9.7 Neut % (Auto) 56.0 Lymph % (Auto) 35.8 [place] % (Auto) 7.0 Eos % (Auto) 0.6 Baso % (Auto) 0.6 Neut # (Auto) 4.4 Lymph # (Auto) 2.8 [place] # (Auto) 0.5 Eos # (Auto) 0.0 Baso # (Auto) 0.0 Sodium 138 Potassium 4.2 Chloride 101 Carbon Dioxide 27 Anion Gap 14 BUN 13 Creatinine 0.7 Est GFR ( Amer) > 60 Est GFR (Non-Af Amer) > 60 Random Glucose 92 Calcium 9.6 Total Bilirubin 0.4 AST 29 ALT 33 Alkaline Phosphatase 69 Total Protein 7.7 Albumin 4.8 Globulin 3.0 Albumin/Globulin Ratio 1.6 Amylase 64 Lipase 66 Urine Color Urine Clarity Urine pH Ur Specific [place] Urine Protein Urine Glucose (UA) Urine Ketones Urine Blood Urine Nitrate Urine Bilirubin Urine Urobilinogen Ur Leukocyte Esterase Urine WBC (Auto) Urine RBC (Auto) Ur Squamous Epith Cells Urine HCG, Qual Blood Type O POSITIVE Antibody Screen Negative 05/21/18 20:21 WBC RBC Hgb Hct MCV MCH MCHC RDW Plt Count MPV Neut % (Auto) Lymph % (Auto) [place] % (Auto) Eos % (Auto) Baso % (Auto) Neut # (Auto) Lymph # (Auto) [place] # (Auto) Eos # (Auto) Baso # (Auto) Sodium Potassium Chloride Carbon Dioxide Anion Gap BUN Creatinine Est GFR ( Amer) Est GFR (Non-Af Amer) Random Glucose Calcium Total Bilirubin AST ALT Alkaline Phosphatase Total Protein Albumin Globulin Albumin/Globulin Ratio Amylase Lipase Urine Color Yellow Urine Clarity Clear Urine pH 5.0 Ur Specific [place] 1.016 Urine Protein Negative Urine Glucose (UA) Normal Urine Ketones 1+ H Urine Blood 3+ H Urine Nitrate Negative Urine Bilirubin Negative Urine Urobilinogen Normal Ur Leukocyte Esterase Neg Urine WBC (Auto) 15 H Urine RBC (Auto) 46 H Ur Squamous Epith Cells 2 Urine HCG, Qual Negative Blood Type Antibody Screen Assessment & Plan (1) Diarrhea Status: Acute (2) Enteritis Status: Acute (3) Inflammatory bowel disease Status: Acute (4) Nausea, vomiting and diarrhea Status: Acute (5) Abdominal pain Status: Acute (6) Fibroid, uterine Status: Acute (7) Endometriosis Status: Acute - Assessment and Plan (Free Text) Assessment: r/o UTI r/o gastroenteritis r/o endometriosis 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
--- NOTE | 2018-05-22 13:05 | CP.PCM.CON ---
History of Present Illness - History of Present Illness History of Present Illness: GI Fellow PGY4, consult note. Za Ramey is 32F presenting with abdominal pain, nausea, vomiting diarrhea. Her symptoms have been waxing and waning for 2 months, recently getting progressively worse. The abdominal pain is cramping, burning, diffuse mostly right-sided. Nothing makes the pain bettor or worse. She continues to vomit and have diarrhea with eating for the last couple weeks. However, she has not had significant weight loss. She does report nocturnal urges to defecate as well as seeing blood in her stool. She does admit recent abx use in the last 2 months. She has been in the ED several times in the last 2 months. Denies NSAID use. Labs reviewed, no significant abnormalities CT A/P reviewed showed no acute findings. PMHx - Chronic abdominal pain, anemia, asthma, PCOS, endometriosis PSHx - tonsillectomy, fibroids removed Fmhx - denies GI related cancer, IBD, liver disease SocHx - Previous smoker 20 pack yr hx but stopped last year, denies EtOH use, no drug use. 12pt ROS completed and negative except for above. Past Patient History - Infectious Disease Hx of Infectious Diseases: None - Past Medical History & Family History Past Medical History?: Yes - Past Social History Smoking Status: Former Smoker - CARDIAC Hx Cardiac Disorders: No - PULMONARY Hx Respiratory Disorders: Yes Hx Asthma: Yes - NEUROLOGICAL Hx Neurological Disorder: No - HEENT Hx HEENT Problems: No - RENAL Hx Chronic Kidney Disease: No - ENDOCRINE/METABOLIC Hx Endocrine Disorders: Yes (SEE COMMENT) Other/Comment: Hx PCOS. Hx uterine fibroids laproscopy - HEMATOLOGICAL/ONCOLOGICAL Hx Blood Disorders: Yes Hx Anemia: Yes - INTEGUMENTARY Hx Dermatological Problems: No - MUSCULOSKELETAL/RHEUMATOLOGICAL Hx Falls: No - GASTROINTESTINAL Hx Gastrointestinal Disorders: No - GENITOURINARY/GYNECOLOGICAL Hx Genitourinary Disorders: Yes (SEE COMMENT) Other/Comment: Hx Uterine fibroids; PCOS - PSYCHIATRIC Hx Substance Use: No - SURGICAL HISTORY Hx Cholecystectomy: No - ANESTHESIA Hx Anesthesia: Yes Hx Anesthesia Reactions: No Meds Allergies/Adverse Reactions: Allergies Allergy/AdvReac Type Severity Reaction Status Date / Time peanut Allergy Severe ANAPHYLAXIS Verified 05/21/18 16:42 ibuprofen Allergy Intermediate ANAPHYLAXIS Verified 05/21/18 16:42 naproxen sodium [From Aleve] Allergy Intermediate ITCHING Verified 05/21/18 16:42 peach Allergy RASH Verified 05/21/18 16:42 NSAIDS (Non-Steroidal AdvReac Intermediate NAUSEA Verified 05/21/18 16:42 Anti-Inflamma tussfed Allergy Mild RASH Uncoded 05/21/18 16:42 - Medications Medications: Current Medications Enoxaparin Sodium (Lovenox) 40 mg SC DAILY [facility] Last Admin: 05/22/18 10:30 Dose: 40 mg Metronidazole (Flagyl) 500 mg in 100 mls @ 100 mls/hr IVPB Q8 [facility]; Protocol Last Admin: 05/22/18 06:06 Dose: 100 mls/hr Ciprofloxacin (Cipro 400mg/200ml Dsw) 400 mg in 200 mls @ 133 mls/hr IVPB Q12H [facility]; Protocol Last Admin: 05/22/18 10:29 Dose: 133 mls/hr Dextrose/Sodium Chloride (Dextrose 5%/0.45% Ns 1000 Ml) 1,000 mls @ 100 mls/hr IV .Q10H [facility] Last Admin: 05/22/18 11:31 Dose: 100 mls/hr Morphine Sulfate (Morphine) 1 mg IVP Q6 PRN PRN Reason: Pain, moderate (4-7) Last Admin: 05/22/18 10:32 Dose: 1 mg Ondansetron HCl (Zofran Inj) 4 mg IVP Q6 PRN PRN Reason: Nausea/Vomiting Physical Exam - Constitutional Appears: Well, Non-toxic - Head Exam Head Exam: ATRAUMATIC, NORMAL INSPECTION - Eye Exam Eye Exam: EOMI, Normal appearance - ENT Exam ENT Exam: Mucous Membranes Moist, Normal Exam - Respiratory Exam Respiratory Exam: Clear to Auscultation Bilateral, NORMAL BREATHING PATTERN - Cardiovascular Exam Cardiovascular Exam: REGULAR RHYTHM, +S1, +S2 - GI/Abdominal Exam GI & Abdominal Exam: Normal Bowel Sounds, Soft, Tenderness. absent: Distended, Organomegaly - Rectal Exam Rectal Exam: NORMAL INSPECTION. absent: Black Stool, Bloody Stool - Extremities Exam Extremities exam: Positive for: normal inspection. Negative for: pedal edema - Back Exam Back exam: CVA tenderness (R). absent: CVA tenderness (L) - Neurological Exam Neurological exam: Alert, CN II-XII Intact, Oriented x3 - Psychiatric Exam Psychiatric exam: Normal Affect, Normal Mood - Skin Skin Exam: Dry, Normal Color Results - Vital Signs Recent Vital Signs: Last Vital Signs Temp 97.9 F 05/22/18 08:06 Pulse 63 05/22/18 08:06 Resp 20 05/22/18 08:06 BP 97/60 L 05/22/18 08:06 Pulse Ox 99 05/22/18 08:06 - Labs Result Diagrams: 05/21/18 18:47 05/21/18 18:47 Labs: Laboratory Results - last 24 hr 05/21/18 05/21/18 05/21/18 18:47 18:47 20:09 WBC 7.8 RBC 4.39 Hgb 14.0 Hct 41.8 MCV 95.2 MCH 31.8 H MCHC 33.4 RDW 14.0 Plt Count 243 MPV 9.7 Neut % (Auto) 56.0 Lymph % (Auto) 35.8 [place] % (Auto) 7.0 Eos % (Auto) 0.6 Baso % (Auto) 0.6 Neut # (Auto) 4.4 Lymph # (Auto) 2.8 [place] # (Auto) 0.5 Eos # (Auto) 0.0 Baso # (Auto) 0.0 Sodium 138 Potassium 4.2 Chloride 101 Carbon Dioxide 27 Anion Gap 14 BUN 13 Creatinine 0.7 Est GFR ( Amer) > 60 Est GFR (Non-Af Amer) > 60 Random Glucose 92 Calcium 9.6 Total Bilirubin 0.4 AST 29 ALT 33 Alkaline Phosphatase 69 Total Protein 7.7 Albumin 4.8 Globulin 3.0 Albumin/Globulin Ratio 1.6 Amylase 64 Lipase 66 Urine Color Urine Clarity Urine pH Ur Specific [place] Urine Protein Urine Glucose (UA) Urine Ketones Urine Blood Urine Nitrate Urine Bilirubin Urine Urobilinogen Ur Leukocyte Esterase Urine WBC (Auto) Urine RBC (Auto) Ur Squamous Epith Cells Urine HCG, Qual Blood Type O POSITIVE Antibody Screen Negative 05/21/18 20:21 WBC RBC Hgb Hct MCV MCH MCHC RDW Plt Count MPV Neut % (Auto) Lymph % (Auto) [place] % (Auto) Eos % (Auto) Baso % (Auto) Neut # (Auto) Lymph # (Auto) [place] # (Auto) Eos # (Auto) Baso # (Auto) Sodium Potassium Chloride Carbon Dioxide Anion Gap BUN Creatinine Est GFR ( Amer) Est GFR (Non-Af Amer) Random Glucose Calcium Total Bilirubin AST ALT Alkaline Phosphatase Total Protein Albumin Globulin Albumin/Globulin Ratio Amylase Lipase Urine Color Yellow Urine Clarity Clear Urine pH 5.0 Ur Specific [place] 1.016 Urine Protein Negative Urine Glucose (UA) Normal Urine Ketones 1+ H Urine Blood 3+ H Urine Nitrate Negative Urine Bilirubin Negative Urine Urobilinogen Normal Ur Leukocyte Esterase Neg Urine WBC (Auto) 15 H Urine RBC (Auto) 46 H Ur Squamous Epith Cells 2 Urine HCG, Qual Negative Blood Type Antibody Screen Assessment & Plan - Assessment and Plan (Free Text) Assessment: #Abdominal pain #Diarrhea, Blood in stool #Intractable nausea/vomiting #PCOS, endometriosis, fibroids PLAN: -Labs and imaging reviewed. No obvious primary GI cause of the abdominal pain. 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 -Continue IVF -Plan for EGD tomorrow in setting of intractable vomiting -Continue antiemetics -NPO -Consider GUIDANCE ADVISER consult if GI r/o. -Abx per primary - Date & Time Date: 05/22/18 Time: 16:48
[2018-05-22 14:57] LABS: HEPATITIS B SURFACE AG Negative (NEGATIVE)
[2018-05-22 15:03] LABS: HEPATITIS A IGM NEGATIVE (NEGATIVE); HEPATITIS B CORE AB NEGATIVE (NEGATIVE)
[2018-05-22 15:14] LABS: HEPATITIS C ANTIBODY NEGATIVE (NEGATIVE)
[2018-05-22] MEDS: Morphine 4 MG/ML VIAL IVP PRN ×2 (16:35→22:35)
--- NOTE | 2018-05-22 16:47 | CP.PCM.HP ---
History of Present Illness - History of Present Illness History of Present Illness: 32 year old female presents to the ED c/o vomiting and diarrhea for the past 2 weeks. Patient was seen in the ED on 05/15 and states she is not feeling better. Patient also reports she saw small streaks of blood in her vomit and diarrhea. Patient also feeling lightheaded. Patient denies fever, chills, abdominal pain, CP, SOB, rash, weakness, numbness. Present on Admission - Present on Admission Any Indicators Present on Admission: No History of DVT/PE: No History of Uncontrolled Diabetes: No Urinary Catheter: No Decubitus Ulcer Present: No Past Patient History - Infectious Disease Hx of Infectious Diseases: None - Past Medical History & Family History Past Medical History?: Yes - Past Social History Smoking Status: Former Smoker - CARDIAC Hx Cardiac Disorders: No - PULMONARY Hx Respiratory Disorders: Yes Hx Asthma: Yes - NEUROLOGICAL Hx Neurological Disorder: No - HEENT Hx HEENT Problems: No - RENAL Hx Chronic Kidney Disease: No - ENDOCRINE/METABOLIC Hx Endocrine Disorders: Yes (SEE COMMENT) Other/Comment: Hx PCOS. Hx uterine fibroids laproscopy - HEMATOLOGICAL/ONCOLOGICAL Hx Blood Disorders: Yes Hx Anemia: Yes - INTEGUMENTARY Hx Dermatological Problems: No - MUSCULOSKELETAL/RHEUMATOLOGICAL Hx Falls: No - GASTROINTESTINAL Hx Gastrointestinal Disorders: No - GENITOURINARY/GYNECOLOGICAL Hx Genitourinary Disorders: Yes (SEE COMMENT) Other/Comment: Hx Uterine fibroids; PCOS - PSYCHIATRIC Hx Substance Use: No - SURGICAL HISTORY Hx Cholecystectomy: No - ANESTHESIA Hx Anesthesia: Yes Hx Anesthesia Reactions: No Meds Allergies/Adverse Reactions: Allergies Allergy/AdvReac Type Severity Reaction Status Date / Time peanut Allergy Severe ANAPHYLAXIS Verified 05/21/18 16:42 ibuprofen Allergy Intermediate ANAPHYLAXIS Verified 05/21/18 16:42 naproxen sodium [From Aleve] Allergy Intermediate ITCHING Verified 05/21/18 16:42 peach Allergy RASH Verified 05/21/18 16:42 NSAIDS (Non-Steroidal AdvReac Intermediate NAUSEA Verified 05/21/18 16:42 Anti-Inflamma tussfed Allergy Mild RASH Uncoded 05/21/18 16:42 Physical Exam - Head Exam Head Exam: NORMAL INSPECTION - Eye Exam Eye Exam: Normal appearance - ENT Exam ENT Exam: Mucous Membranes Moist - Respiratory Exam Respiratory Exam: Clear to Auscultation Bilateral - Cardiovascular Exam Cardiovascular Exam: REGULAR RHYTHM, +S1, +S2 - GI/Abdominal Exam GI & Abdominal Exam: Hypoactive Bowel Sounds, Soft, Tenderness - Extremities Exam Extremities exam: Positive for: normal inspection - Neurological Exam Neurological exam: Alert, Oriented x3 - Psychiatric Exam Psychiatric exam: Normal Affect, Normal Mood Results - Vital Signs Recent Vital Signs: Last Vital Signs Temp 97.9 F 05/22/18 16:00 Pulse 66 05/22/18 16:00 Resp 20 05/22/18 16:00 BP 116/70 05/22/18 16:00 Pulse Ox 97 05/22/18 16:00 - Labs Result Diagrams: 05/21/18 18:47 05/21/18 18:47 Labs: Laboratory Results - last 24 hr 05/21/18 05/21/18 05/21/18 18:47 18:47 20:09 WBC 7.8 RBC 4.39 Hgb 14.0 Hct 41.8 MCV 95.2 MCH 31.8 H MCHC 33.4 RDW 14.0 Plt Count 243 MPV 9.7 Neut % (Auto) 56.0 Lymph % (Auto) 35.8 [place] % (Auto) 7.0 Eos % (Auto) 0.6 Baso % (Auto) 0.6 Neut # (Auto) 4.4 Lymph # (Auto) 2.8 [place] # (Auto) 0.5 Eos # (Auto) 0.0 Baso # (Auto) 0.0 Sodium 138 Potassium 4.2 Chloride 101 Carbon Dioxide 27 Anion Gap 14 BUN 13 Creatinine 0.7 Est GFR ( Amer) > 60 Est GFR (Non-Af Amer) > 60 Random Glucose 92 Calcium 9.6 Total Bilirubin 0.4 AST 29 ALT 33 Alkaline Phosphatase 69 Total Protein 7.7 Albumin 4.8 Globulin 3.0 Albumin/Globulin Ratio 1.6 Amylase 64 Lipase 66 Procalcitonin Urine Color Urine Clarity Urine pH Ur Specific [place] Urine Protein Urine Glucose (UA) Urine Ketones Urine Blood Urine Nitrate Urine Bilirubin Urine Urobilinogen Ur Leukocyte Esterase Urine WBC (Auto) Urine RBC (Auto) Ur Squamous Epith Cells Urine HCG, Qual Hepatitis A IgM Ab Hep Bs Antigen Hep B Core IgM Ab Hepatitis C Antibody HIV 1&2 Antibody Screen Influenza Typ A,B (EIA) Blood Type O POSITIVE Antibody Screen Negative 05/21/18 05/22/18 05/22/18 20:21 14:07 14:07 WBC RBC Hgb Hct MCV MCH MCHC RDW Plt Count MPV Neut % (Auto) Lymph % (Auto) [place] % (Auto) Eos % (Auto) Baso % (Auto) Neut # (Auto) Lymph # (Auto) [place] # (Auto) Eos # (Auto) Baso # (Auto) Sodium Potassium Chloride Carbon Dioxide Anion Gap BUN Creatinine Est GFR ( Amer) Est GFR (Non-Af Amer) Random Glucose Calcium Total Bilirubin AST ALT Alkaline Phosphatase Total Protein Albumin Globulin Albumin/Globulin Ratio Amylase Lipase 35 Procalcitonin < 0.05 L Urine Color Yellow Urine Clarity Clear Urine pH 5.0 Ur Specific [place] 1.016 Urine Protein Negative Urine Glucose (UA) Normal Urine Ketones 1+ H Urine Blood 3+ H Urine Nitrate Negative Urine Bilirubin Negative Urine Urobilinogen Normal Ur Leukocyte Esterase Neg Urine WBC (Auto) 15 H Urine RBC (Auto) 46 H Ur Squamous Epith Cells 2 Urine HCG, Qual Negative Hepatitis A IgM Ab Hep Bs Antigen Hep B Core IgM Ab Hepatitis C Antibody HIV 1&2 Antibody Screen Influenza Typ A,B (EIA) Blood Type Antibody Screen 05/22/18 05/22/18 05/22/18 14:07 14:07 14:47 WBC RBC Hgb Hct MCV MCH MCHC RDW Plt Count MPV Neut % (Auto) Lymph % (Auto) [place] % (Auto) Eos % (Auto) Baso % (Auto) Neut # (Auto) Lymph # (Auto) [place] # (Auto) Eos # (Auto) Baso # (Auto) Sodium Potassium Chloride Carbon Dioxide Anion Gap BUN Creatinine Est GFR ( Amer) Est GFR (Non-Af Amer) Random Glucose Calcium Total Bilirubin AST ALT Alkaline Phosphatase Total Protein Albumin Globulin Albumin/Globulin Ratio Amylase Lipase Procalcitonin Urine Color Urine Clarity Urine pH Ur Specific [place] Urine Protein Urine Glucose (UA) Urine Ketones Urine Blood Urine Nitrate Urine Bilirubin Urine Urobilinogen Ur Leukocyte Esterase Urine WBC (Auto) Urine RBC (Auto) Ur Squamous Epith Cells Urine HCG, Qual Hepatitis A IgM Ab Negative Hep Bs Antigen Negative Hep B Core IgM Ab Negative Hepatitis C Antibody Negative HIV 1&2 Antibody Screen Negative Influenza Typ A,B (EIA) Negative for flu a/b Blood Type Antibody Screen Assessment & Plan (1) Endometriosis Status: Acute (2) Enteritis Status: Acute (3) Nausea, vomiting and diarrhea Status: Acute (4) Abdominal pain Status: Acute - Assessment and Plan (Free Text) Plan: Pain control 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 after midnight for EGD in a.m. IV fluids DVT/GI
[2018-05-23] MEDS: Morphine 4 MG/ML VIAL IVP PRN ×3 (05:09→20:05)
[2018-05-23] MEDS: metroNIDAZOLE IV 500 mg/100 ml 500 MG/100 ML BAG IVPB SCH ×3 (05:09→21:03)
[2018-05-23] MEDS: Dextrose 5%/0.45% NS 1,000 ML IV SCH ×2 (07:00→21:08)
[2018-05-23] MEDS: Ciprofloxacin 400mg/200ml D5W 400 MG/200 ML BAG IVPB SCH ×2 (09:33→22:12)
[2018-05-23] MEDS ORDERED: Midazolam 2 MG/2 ML VIAL ONE (10:21)
[2018-05-23] MEDS ORDERED: Propofol 10 mg/ml Inj (20 ML) ONE (10:21)
--- NOTE | 2018-05-23 13:42 | CP.PCM.PN ---
Subjective - Date & Time of Evaluation Date of Evaluation: 05/23/18 Time of Evaluation: 13:42 - Subjective Subjective: Patient seen and examined Status post EGD Objective - Vital Signs/Intake and Output Vital Signs (last 24 hours): Temp Pulse Resp BP Pulse Ox 98.7 F 63 18 106/69 98 05/23/18 11:20 05/23/18 11:50 05/23/18 11:50 05/23/18 11:50 05/23/18 11:50 Intake and Output: 05/23/18 05/23/18 06:59 18:59 Intake Total 650 350 Balance 650 350 - Medications Medications: Current Medications Enoxaparin Sodium (Lovenox) 40 mg SC DAILY [facility] Last Admin: 05/22/18 10:30 Dose: 40 mg Metronidazole (Flagyl) 500 mg in 100 mls @ 100 mls/hr IVPB Q8 [facility]; Protocol Last Admin: 05/23/18 05:09 Dose: 100 mls/hr Ciprofloxacin (Cipro 400mg/200ml Dsw) 400 mg in 200 mls @ 133 mls/hr IVPB Q12H [facility]; Protocol Last Admin: 05/23/18 09:33 Dose: 133 mls/hr Dextrose/Sodium Chloride (Dextrose 5%/0.45% Ns 1000 Ml) 1,000 mls @ 100 mls/hr IV .Q10H [facility] Last Admin: 05/23/18 07:00 Dose: 100 mls/hr Morphine Sulfate (Morphine) 1 mg IVP Q6 PRN PRN Reason: Pain, moderate (4-7) Last Admin: 05/23/18 05:09 Dose: 1 mg Ondansetron HCl (Zofran Inj) 8 mg IVP Q8 PRN PRN Reason: Nausea/Vomiting Sucralfate (Carafate Tab) 1 gm PO ACBHS [facility] - Labs Labs: 05/21/18 18:47 05/21/18 18:47 - Head Exam Head Exam: NORMAL INSPECTION - Eye Exam Eye Exam: Normal appearance - ENT Exam ENT Exam: Mucous Membranes Moist - Respiratory Exam Respiratory Exam: Clear to Ausculation Bilateral - Cardiovascular Exam Cardiovascular Exam: REGULAR RHYTHM, +S1, +S2 - GI/Abdominal Exam GI & Abdominal Exam: Hypoactive Bowel Sounds - Extremities Exam Extremities Exam: Normal Inspection - Neurological Exam Neurological Exam: Alert, Oriented x3 Assessment and Plan (1) Gastritis Status: Acute (2) Endometriosis Status: Acute (3) Enteritis Status: Acute (4) Nausea, vomiting and diarrhea Status: Acute (5) Abdominal pain Status: Acute - Assessment and Plan (Free Text) Plan: GLOBAL CATEGORY MANAGER consult appreciated Sucralfate Pain control Supportive care DVT/GI prophylaxis
[2018-05-23 16:31] VITALS: RESP 20
--- NOTE | 2018-05-23 17:29 | CP.PCM.CON ---
<Davin Galicia - Last Filed: 05/23/18 18:23> History of Present Illness - History of Present Illness History of Present Illness: Davin Galicia DO, PGY-1 Gynecology Consult Note for Dr. Chen Patient is a 32 year old female, G0, with PMH of PCOS, endometriosis, uterine fibroids (s/p myomectomy x2), chronic anemia, and asthma who presented to on 05/21/2018 with complaints of persistent nonradiating stabbing RUQ abdominal pain with associated N/V/D. Symptoms began March 17, 2018 and have been progressively worsened. The pain is 8/10 at worst and 4/10 when she lays on her right side. 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 In addition, she has noticed blood on the toilet paper when she wipes and 1 episode of blood in the toilet bowl. In [facility], patient notes 1 witnessed syncopal episode 1 week ago with associated lightheadedness She presented to the ED with similar complaints and also complained of dyspareunia on 05/15/2018. She was subsequently discharged with 100 mg Doxycycline PO BID and 500mg Flagyl PO BID for management of PID. She was told to follow up with Dr. Live at [facility] for further managament, but was non-compliant. Patient stated that she was unable to tolerate the antibiotics she was given due to vomiting. Denies fever, chills, cough, congestion, CP, SOB.No other acute complaints at this time. While in the ED, patient had CT A/P which showed no acute findings. Endoscopy performed on 05/23/2018 which resulted a 2cm sessile gastric polyp that was resected, gastritis, small hiatos hernia, and patchy moderately erythematous mucosa without bleeding in the gastirc antrum that was biopsed. 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 She wears 2 pads, and changes them every 1 hour. Age of first menarche: 11. Allergies: peanuts, ibuprofen, naproxen sodium, peaches, NSAID, Tussfed PMHx: Uterine fibroids (s/p myomectomy x2 - 2014 and 2016), PCOS, endometriosis, anemia, asthma Past surgical Hx: tosillectomy, myomecytomy x2 Past social Hx: former 20 pack year smoker, quit one year ago. Denies alcohol and drug use. Family Hx: Father ()- Metastatic prostate cancer, Mother- [place] in her 70's Medications: None Review of Systems - Constitutional Constitutional: absent: Chills, Fever - Cardiovascular Cardiovascular: As Per HPI - Respiratory Respiratory: As Per HPI - Gastrointestinal Gastrointestinal: As Per HPI - Genitourinary Genitourinary: As Per HPI Past Patient History - Infectious Disease Hx of Infectious Diseases: None - Past Medical History & Family History Past Medical History?: Yes - Past Social History Smoking Status: Former Smoker - CARDIAC Hx Cardiac Disorders: No - PULMONARY Hx Respiratory Disorders: Yes Hx Asthma: Yes - NEUROLOGICAL Hx Neurological Disorder: No - HEENT Hx HEENT Problems: No - RENAL Hx Chronic Kidney Disease: No - ENDOCRINE/METABOLIC Hx Endocrine Disorders: Yes (SEE COMMENT) Other/Comment: Hx PCOS. Hx uterine fibroids laproscopy - HEMATOLOGICAL/ONCOLOGICAL Hx Blood Disorders: Yes Hx Anemia: Yes - INTEGUMENTARY Hx Dermatological Problems: No - MUSCULOSKELETAL/RHEUMATOLOGICAL Hx Falls: No - GASTROINTESTINAL Hx Gastrointestinal Disorders: No - GENITOURINARY/GYNECOLOGICAL Hx Genitourinary Disorders: Yes (SEE COMMENT) Other/Comment: Hx Uterine fibroids; PCOS - PSYCHIATRIC Hx Substance Use: No - SURGICAL HISTORY Hx Cholecystectomy: No - ANESTHESIA Hx Anesthesia: Yes Hx Anesthesia Reactions: No Meds Allergies/Adverse Reactions: Allergies Allergy/AdvReac Type Severity Reaction Status Date / Time peanut Allergy Severe ANAPHYLAXIS Verified 05/21/18 16:42 ibuprofen Allergy Intermediate ANAPHYLAXIS Verified 05/21/18 16:42 naproxen sodium [From Aleve] Allergy Intermediate ITCHING Verified 05/21/18 16:42 peach Allergy RASH Verified 05/21/18 16:42 NSAIDS (Non-Steroidal AdvReac Intermediate NAUSEA Verified 05/21/18 16:42 Anti-Inflamma tussfed Allergy Mild RASH Uncoded 05/21/18 16:42 - Medications Medications: Current Medications Enoxaparin Sodium (Lovenox) 40 mg SC DAILY TIFFANIE Last Admin: 05/22/18 10:30 Dose: 40 mg Metronidazole (Flagyl) 500 mg in 100 mls @ 100 mls/hr IVPB Q8 TIFFANIE; Protocol Last Admin: 05/23/18 13:57 Dose: 100 mls/hr Ciprofloxacin (Cipro 400mg/200ml Dsw) 400 mg in 200 mls @ 133 mls/hr IVPB Q12H [facility]; Protocol Last Admin: 05/23/18 09:33 Dose: 133 mls/hr Dextrose/Sodium Chloride (Dextrose 5%/0.45% Ns 1000 Ml) 1,000 mls @ 100 mls/hr IV .Q10H [facility] Last Admin: 05/23/18 07:00 Dose: 100 mls/hr Morphine Sulfate (Morphine) 1 mg IVP Q6 PRN PRN Reason: Pain, moderate (4-7) Last Admin: 05/23/18 13:57 Dose: 1 mg Ondansetron HCl (Zofran Inj) 8 mg IVP Q8 PRN PRN Reason: Nausea/Vomiting Last Admin: 05/23/18 16:26 Dose: 8 mg Sucralfate (Carafate Tab) 1 gm PO ACBHS [facility] Physical Exam - Constitutional Appears: Non-toxic, No Acute Distress - Head Exam Head Exam: ATRAUMATIC, NORMOCEPHALIC - Eye Exam Eye Exam: EOMI, Normal appearance, PERRL - ENT Exam ENT Exam: Mucous Membranes Moist - Neck Exam Neck exam: Positive for: Full Rom, Normal Inspection - Respiratory Exam Respiratory Exam: Clear to Auscultation Bilateral, NORMAL BREATHING PATTERN. absent: Rales, Rhonchi, Wheezes - Cardiovascular Exam Cardiovascular Exam: REGULAR RHYTHM, RRR, +S1, +S2. absent: Gallop, Rubs, Systolic Murmur - GI/Abdominal Exam GI & Abdominal Exam: Firm, Soft, Tenderness (suprapubic tenderness) - Exam Exam: NORMAL INSPECTION External exam: NORMAL EXTERNAL EXAM Speculum exam: NORMAL SPECULUM EXAM, Vaginal Bleeding (on menses). absent: Cervical Discharge, Vaginal Discharge Bimanual exam: Cervical Motion Tendernes, NORMAL BIMANUAL EXAM. absent: Adenexal Mass - Extremities Exam Extremities exam: Positive for: normal inspection. Negative for: pedal edema - Back Exam Back exam: NORMAL INSPECTION - Neurological Exam Neurological exam: Alert, Oriented x3 - Psychiatric Exam Psychiatric exam: Normal Affect, Normal Mood - Skin Skin Exam: Dry, Intact, Warm Results - Vital Signs Recent Vital Signs: Last Vital Signs Temp 98.2 F 05/23/18 16:00 Pulse 61 05/23/18 16:00 Resp 20 05/23/18 16:00 BP 100/59 L 01/09/19 16:00 Pulse Ox 96 05/23/18 16:00 - Labs Result Diagrams: 05/21/18 18:47 05/21/18 18:47 Labs: Laboratory Results - last 24 hr 05/23/18 10:15 Urine HCG, Qual Negative Assessment & Plan - Assessment and Plan (Free Text) Assessment: 32 yo F with PMH of PCOS, endometriosis, uterine fibroids (s/p myomectomy x2), chronic anemia, and asthma is admitted for management of intractable nausea/vomiting/abdominal pain. GI work up thus far has been negative. Patient was instructed to f/u with gynecology outpatient on prior visits and did not follow up. Plan: Endometriosis Hx of abdominal pain associated with menses and dyspareunia is c/w endometriosis Patient was instructed to f/u on prior visit but did not f/u First line treatment for endometriosis would be OCPs Instructed patient that she will need to f/u with [facility] to get further treatment and/or w/u for endometriosis Case and plan reviewed and discussed with Dr. Gustavo Galicia DO IM Resident PGY-1 <Viky Chen - Last Filed: 05/25/18 20:27> Results - Vital Signs Recent Vital Signs: Last Vital Signs Temp 97.7 F 05/25/18 07:57 Pulse 60 05/25/18 07:57 Resp 20 05/25/18 07:57 BP 90/62 L 05/25/18 07:57 Pulse Ox 95 05/25/18 07:57 - Labs Result Diagrams: 05/24/18 06:58 05/21/18 18:47 Assessment & Plan - Assessment and Plan (Free Text) Assessment: Pt aware of pelvic US with recurrent uterine fibroids that need to be evaluated for further treatment Plan: Again pt made aware of need for outpatient follow up and possible treatment Pt states that she has no medical insurance and advised to seek care at places that offered [facility] care ie [facility] Pt verbalized uderstanding and agreed with POC Will sign off at this time and thank you for allowing us to participate in the care of your patient. Pt was seen and examined with Dr. Galicia and Medical students and case was discussed at [facility]. I agreed with his Assessment and Plan. Viky Chen DO - Date & Time Date: 05/23/18 Time: 20:30
--- NOTE | 2018-05-23 18:44 | CP.PCM.PN ---
Subjective - Date & Time of Evaluation Date of Evaluation: 05/23/18 Time of Evaluation: 08:00 - Subjective Subjective: 32 yo F with PMH of PCOS, endometriosis, uterine fibroids (s/p myomectomy x2), chronic anemia, and asthma is admitted for management of intractable nausea/vomiting/abdominal pain. GI work up thus far has been negative. Patient was instructed to f/u with gynecology outpatient on prior visits and did not follow up. Objective - Vital Signs/Intake and Output Vital Signs (last 24 hours): Temp Pulse Resp BP Pulse Ox 98.2 F 61 20 100/59 L 96 05/23/18 16:00 05/23/18 16:00 05/23/18 16:00 05/23/18 16:00 05/23/18 16:00 Intake and Output: 05/23/18 05/23/18 06:59 18:59 Intake Total 650 1000 Balance 650 1000 - Medications Medications: Current Medications Enoxaparin Sodium (Lovenox) 40 mg SC DAILY [facility]FF[facility]IE Last Admin: 05/22/18 10:30 Dose: 40 mg Metronidazole (Flagyl) 500 mg in 100 mls @ 100 mls/hr IVPB Q8 [facility]; Protocol Last Admin: 05/23/18 13:57 Dose: 100 mls/hr Ciprofloxacin (Cipro 400mg/200ml Dsw) 400 mg in 200 mls @ 133 mls/hr IVPB Q12H [facility]FF[facility]; Protocol Last Admin: 05/23/18 09:33 Dose: 133 mls/hr Dextrose/Sodium Chloride (Dextrose 5%/0.45% Ns 1000 Ml) 1,000 mls @ 100 mls/hr IV .Q10H [facility] Last Admin: 05/23/18 07:00 Dose: 100 mls/hr Morphine Sulfate (Morphine) 1 mg IVP Q6 PRN PRN Reason: Pain, moderate (4-7) Last Admin: 05/23/18 13:57 Dose: 1 mg Ondansetron HCl (Zofran Inj) 8 mg IVP Q8 PRN PRN Reason: Nausea/Vomiting Last Admin: 05/23/18 16:26 Dose: 8 mg Sucralfate (Carafate Tab) 1 gm PO ACBHS TIFFANIE - Labs Labs: 05/21/18 18:47 05/21/18 18:47 - Constitutional Appears: Non-toxic, Chronically Ill - Head Exam Head Exam: NORMOCEPHALIC - Eye Exam Eye Exam: absent: Scleral icterus - ENT Exam ENT Exam: Mucous Membranes Dry - Neck Exam Neck Exam: absent: Lymphadenopathy - Respiratory Exam Respiratory Exam: Decreased Breath Sounds - Cardiovascular Exam Cardiovascular Exam: REGULAR RHYTHM - GI/Abdominal Exam GI & Abdominal Exam: Distended - Rectal Exam Rectal Exam: Deferred - Exam Exam: NORMAL INSPECTION Assessment and Plan (1) Diarrhea Status: Acute (2) Enteritis Status: Acute (3) Inflammatory bowel disease Status: Acute (4) Nausea, vomiting and diarrhea Status: Acute (5) Abdominal pain Status: Acute (6) Fibroid, uterine Status: Acute (7) Endometriosis Status: Acute - Assessment and Plan (Free Text) Assessment: 32 yo F with PMH of PCOS, endometriosis, uterine fibroids (s/p myomectomy x2), chronic anemia, and asthma is admitted for management of intractable nausea/vomiting/abdominal pain. CULTURES SO FAR NEGATIVE iv RX IN PROGRESS GI AND FIELD CARE ADVOCATE NOTES REVIEWED
--- NOTE | 2018-05-23 18:46 | US ---
Date of service: 05/23/2018 HISTORY: Abdominal Pain COMPARISON: CT abdomen and pelvis with IV contrast performed 05/21/18, pelvic ultrasound performed 11/25/16 TECHNIQUE: Real-time transabdominal pelvic ultrasound was performed. In addition a transvaginal pelvic ultrasound was necessary to better depict pelvic anatomy. FINDINGS: UTERUS: Measures 8.5 x 4.6 x 5.6 cm. Anteverted. 1.8 x 1.4 x 1.3 cm anterior and 2.5 x 2.3 x 2.5 cm right uterine heterogeneous masses consistent with fibroids. ENDOMETRIUM: Measures 5 mm in diameter. CERVIX: No cervical abnormality identified. RIGHT OVARY: Measures 2.8 x 2.4 x 3.0 cm. Blood flow is demonstrated. Follicles. LEFT OVARY: Measures 3.1 x 2.3 x 2.9 cm. Blood flow is demonstrated. Follicles. 1.0 x 0.9 x 1.0 cm para ovarian cyst. FREE FLUID: No significant free fluid noted. OTHER FINDINGS: None. IMPRESSION: Uterine fibroids. Left para ovarian cyst measuring approximately 1 cm.
[2018-05-24] MEDS: Morphine 4 MG/ML VIAL IVP PRN ×4 (02:03→20:02)
[2018-05-24] MEDS: Dextrose 5%/0.45% NS 1,000 ML IV SCH ×2 (04:00→13:29)
[2018-05-24] MEDS: metroNIDAZOLE IV 500 mg/100 ml 500 MG/100 ML BAG IVPB SCH ×3 (05:05→21:00)
[2018-05-24 07:11] LABS: BASO # 0.1 K/uL (0.0-0.2); BASO % 1.1 % (0.0-2.0); EOS # 0.1 K/uL (0.0-0.7); EOS % 3.2 % (0.0-4.0); HEMOGLOBIN 12.7 g/dL (11.0-16.0); LYMPH # 2.1 K/uL (1.0-4.3); LYMPH % 46.6 % (20.0-40.0); MEAN CELL VOLUME 94.8 fL (81.0-99.0); MEAN CORPUSCULAR HEMOGLOBIN 31.8 pg (27.0-31.0); MEAN CORPUSCULAR HGB CONC 33.5 g/dL (33.0-37.0); MEAN PLATELET VOLUME 9.6 fL (7.2-11.7); MONO # 0.4 K/uL (0.0-0.8); MONO % 8.7 % (0.0-10.0); NEUT # 1.9 K/uL (1.8-7.0); NEUT % 40.4 % (50.0-75.0); NRBC % 0.1 % (0.0-2.0); RBC 3.98 Mil/uL (3.80-5.20); RED CELL DISTRIBUTION WIDTH 14.1 % (11.5-14.5); WHITE BLOOD COUNT 4.6 K/uL (4.8-10.8)
[2018-05-24] MEDS: Enoxaparin 40 mg Syringe SC SCH (09:12)
[2018-05-24] MEDS: Ciprofloxacin 400mg/200ml D5W 400 MG/200 ML BAG IVPB SCH ×2 (09:56→22:25)
--- NOTE | 2018-05-24 13:39 | CP.PCM.PN ---
Subjective - Date & Time of Evaluation Date of Evaluation: 05/24/18 Time of Evaluation: 13:39 Objective - Vital Signs/Intake and Output Vital Signs (last 24 hours): Temp Pulse Resp BP Pulse Ox 97.4 F L 60 20 98/60 L 97 05/24/18 07:21 05/24/18 07:21 05/24/18 07:21 05/24/18 07:21 05/24/18 07:21 Intake and Output: 05/24/18 05/24/18 06:59 18:59 Intake Total 1100 Balance 1100 - Medications Medications: Current Medications Enoxaparin Sodium (Lovenox) 40 mg SC DAILY TIFFANIE Last Admin: 05/24/18 09:12 Dose: 40 mg Metronidazole (Flagyl) 500 mg in 100 mls @ 100 mls/hr IVPB Q8 [facility]; Protocol Last Admin: 05/24/18 13:15 Dose: 100 mls/hr Ciprofloxacin (Cipro 400mg/200ml Dsw) 400 mg in 200 mls @ 133 mls/hr IVPB Q12H [facility]; Protocol Last Admin: 05/24/18 09:56 Dose: 133 mls/hr Dextrose/Sodium Chloride (Dextrose 5%/0.45% Ns 1000 Ml) 1,000 mls @ 100 mls/hr IV .Q10H [facility] Last Admin: 05/24/18 13:29 Dose: Not Given Morphine Sulfate (Morphine) 1 mg IVP Q6 PRN PRN Reason: Pain, moderate (4-7) Last Admin: 05/24/18 08:08 Dose: 1 mg Ondansetron HCl (Zofran Inj) 8 mg IVP Q8 PRN PRN Reason: Nausea/Vomiting Last Admin: 05/24/18 13:12 Dose: 8 mg Sucralfate (Carafate Tab) 1 gm PO ACBHS [facility] Last Admin: 05/24/18 08:08 Dose: 1 gm - Labs Labs: 05/24/18 06:58 05/21/18 18:47 Assessment and Plan (1) Endometriosis Status: Acute (2) Enteritis Status: Acute (3) Nausea, vomiting and diarrhea Status: Acute (4) Abdominal pain Status: Acute
--- NOTE | 2018-05-24 20:03 | CP.PCM.PN ---
Subjective - Date & Time of Evaluation Date of Evaluation: 05/24/18 Time of Evaluation: 08:00 - Subjective Subjective: slow progress iv rx reordered abd less tender Objective - Vital Signs/Intake and Output Vital Signs (last 24 hours): Temp Pulse Resp BP Pulse Ox 98.3 F 62 20 92/60 L 97 05/24/18 16:00 05/24/18 16:00 05/24/18 16:00 05/24/18 16:00 05/24/18 16:00 Intake and Output: 05/24/18 05/25/18 18:59 06:59 Intake Total 1330 Balance 1330 - Medications Medications: Current Medications Enoxaparin Sodium (Lovenox) 40 mg SC DAILY [facility] Last Admin: 05/24/18 09:12 Dose: 40 mg Metronidazole (Flagyl) 500 mg in 100 mls @ 100 mls/hr IVPB Q8 TIFFANIE; Protocol Last Admin: 05/24/18 13:15 Dose: 100 mls/hr Ciprofloxacin (Cipro 400mg/200ml Dsw) 400 mg in 200 mls @ 133 mls/hr IVPB Q12H [facility]IE; Protocol Last Admin: 05/24/18 09:56 Dose: 133 mls/hr Morphine Sulfate (Morphine) 1 mg IVP Q6 PRN PRN Reason: Pain, moderate (4-7) Last Admin: 05/24/18 13:58 Dose: 1 mg Ondansetron HCl (Zofran Inj) 8 mg IVP Q8 PRN PRN Reason: Nausea/Vomiting Last Admin: 05/24/18 13:12 Dose: 8 mg Sucralfate (Carafate Tab) 1 gm PO ACBHS [facility] Last Admin: 05/24/18 08:08 Dose: 1 gm - Labs Labs: 05/24/18 06:58 05/21/18 18:47 - Constitutional Appears: Non-toxic, Chronically Ill - Head Exam Head Exam: NORMOCEPHALIC - Eye Exam Eye Exam: absent: Scleral icterus - ENT Exam ENT Exam: Mucous Membranes Dry - Neck Exam Neck Exam: absent: Lymphadenopathy - Respiratory Exam Respiratory Exam: Decreased Breath Sounds - Cardiovascular Exam Cardiovascular Exam: REGULAR RHYTHM - GI/Abdominal Exam GI & Abdominal Exam: Distended - Rectal Exam Rectal Exam: Deferred - Exam Exam: NORMAL INSPECTION - Extremities Exam Extremities Exam: absent: Pedal Edema - Back Exam Back Exam: absent: CVA tenderness (L), CVA tenderness (R) Assessment and Plan (1) Diarrhea Status: Acute (2) Enteritis Status: Acute (3) Inflammatory bowel disease Status: Acute (4) Nausea, vomiting and diarrhea Status: Acute (5) Abdominal pain Status: Acute (6) Fibroid, uterine Status: Acute (7) Endometriosis Status: Acute - Assessment and Plan (Free Text) Assessment: cultures so far neg GI eval in progress cont rx as per Dr Toney PUPPET ENGINEER follow up as out pt
[2018-05-25] MEDS: Morphine 4 MG/ML VIAL IVP PRN ×3 (02:02→13:58)
[2018-05-25] MEDS: metroNIDAZOLE IV 500 mg/100 ml 500 MG/100 ML BAG IVPB SCH ×2 (05:54→13:59)
[2018-05-25 07:59] VITALS: BP 90/62; PULSE 60; TEMP 97.7; O2SAT 95
[2018-05-25] MEDS: Ciprofloxacin 400mg/200ml D5W 400 MG/200 ML BAG IVPB SCH (09:29)
[2018-05-25] MEDS: Enoxaparin 40 mg Syringe SC SCH (09:30)
--- NOTE | 2018-05-25 12:21 | PN ---
DATE: 05/25/2018 LOCATION: 357, bed 8. SUBJECTIVE: This is a 32-year-old female, seen in early rounds with a complaint of persistent nausea versus abdominal pain, refused to eat with intermittent period of abdominal pain as she stated. The entire chart is reviewed and today's lab result is pending; however, the patient still has normal CBC. PHYSICAL EXAMINATION: GENERAL: A 32-year-old female, awake, alert, oriented. VITAL SIGNS: Afebrile with pulse of 64, respiratory rate 20 to 22, and blood pressure 100/64. HEENT: Showed mildly dry oral mucoid membranes, nonicteric sclerae. LUNGS: Few scattered crepitation, decreased air entry at bases. HEART: Positive S1 and S2. ABDOMEN: Soft with mild generalized tenderness. No mass or organomegaly. No rebound tenderness or guarding. EXTREMITIES: Without significant clubbing, cyanosis, or edema. NEUROLOGIC: No reported new neurological deficits, sensory or motor. It has to be mentioned that pathology report from upper endoscopy showed negative results for Helicobacter pylori infection. IMPRESSION: 1. Gastritis. 2. Small hiatal hernia. 3. Gastric polyps. 4. Known history of anemia. 5. Bronchial asthma. 6. Endometriosis as per record. SUGGESTIONS: 1. Continue current management. 2. Antireflux measure. 3. Add Reglan IV. 4. Further recommendations to follow. Vi Riggs MD
--- NOTE | 2018-05-25 12:47 | CP.PCM.PN ---
Subjective - Date & Time of Evaluation Date of Evaluation: 05/25/18 Time of Evaluation: 12:46 Objective - Vital Signs/Intake and Output Vital Signs (last 24 hours): Temp Pulse Resp BP Pulse Ox 97.7 F 60 20 90/62 L 95 05/25/18 07:57 05/25/18 07:57 05/25/18 07:57 05/25/18 07:57 05/25/18 07:57 Intake and Output: 05/25/18 05/25/18 06:59 18:59 Intake Total 950 Balance 950 - Medications Medications: Current Medications Enoxaparin Sodium (Lovenox) 40 mg SC DAILY [facility] Last Admin: 05/25/18 09:30 Dose: 40 mg Metronidazole (Flagyl) 500 mg in 100 mls @ 100 mls/hr IVPB Q8 [facility]; Protocol Last Admin: 05/25/18 05:54 Dose: 100 mls/hr Ciprofloxacin (Cipro 400mg/200ml Dsw) 400 mg in 200 mls @ 133 mls/hr IVPB Q12H [facility]; Protocol Last Admin: 05/25/18 09:29 Dose: 133 mls/hr Metoclopramide HCl (Reglan) 5 mg IVP Q6H [facility] Last Admin: 05/25/18 11:03 Dose: 5 mg Morphine Sulfate (Morphine) 1 mg IVP Q6 PRN PRN Reason: Pain, moderate (4-7) Last Admin: 05/25/18 08:03 Dose: 1 mg Ondansetron HCl (Zofran Inj) 8 mg IVP Q8 PRN PRN Reason: Nausea/Vomiting Last Admin: 05/24/18 13:12 Dose: 8 mg Sucralfate (Carafate Tab) 1 gm PO ACBHS [facility] Last Admin: 05/25/18 08:03 Dose: 1 gm - Labs Labs: 05/24/18 06:58 05/21/18 18:47 Assessment and Plan - Assessment and Plan (Free Text) Assessment: FOLLOW UP WITH PMD IN HIS OFFICE -----CALL FOR APPOINTMENT FOLLOW UP WITH VANESSA IN HIS OFFICE ----CALL FOR APPOINTMENT FOLLOW UP WITH YOUR GUARD SUPERVISOR OR DR SORENSON -----CALL FOR APPOINTMENT CONTINUE HOME MEDICATION NEW PRESCRIPTION GIVEN ZOFRAN 8 MG PO Q8H FOR 3 DAYS ACTIVITY TOLERATED CALL PMD OR GO TO THE EMERGENCY ROOM IF SYMPTOM RETURN OR WORSENING
== END 2018-05-25 16:28 | disposition home or self-care (01) | DRG 182 ==
LOC: C.ER 16:16 → C.9E 21:34 → C.3T 22:28
PROVIDERS: ADMIT Internal Medicine Critical Care Medicine; ATTEND Internal Medicine Critical Care Medicine
PROC: 0DB68ZX Excision of Stomach, Via Natural or Artificial Opening Endoscopic, Diagnostic (ICD-10-PCS; principal; 2018-05-23 10:55)
DX: K58.0 Irritable bowel syndrome with diarrhea (principal); K92.1 Melena; Z87.891 Personal history of nicotine dependence; J45.909 Unspecified asthma, uncomplicated; D13.1 Benign neoplasm of stomach; G89.29 Other chronic pain; E28.2 Polycystic ovarian syndrome; D25.9 Leiomyoma of uterus, unspecified; N80.9 Endometriosis, unspecified; K44.9 Diaphragmatic hernia without obstruction or gangrene

== ENCOUNTER 2018-06-28 23:14 | Inpatient (IN) | payer MEDICAID ==
[2018-06-28 23:14] VITALS: BMI 27.8
--- NOTE | 2018-06-28 23:24 | C.PDOC ---
Time Seen by Provider: 06/28/18 23:23 Chief Complaint (Nursing): Medical Clearance Past Medical History Vital Signs: Last Vital Signs Temp 97.7 F 06/28/18 23:17 Pulse 89 06/28/18 23:17 Resp 14 06/28/18 23:17 BP 116/77 06/28/18 23:17 Pulse Ox 98 06/28/18 23:17 - Medical History PMH: Anemia, Asthma, Chronic Pain (chronic abdominal pain ) Denies: Chronic Kidney Disease Surgical History: Denies: Cholecystectomy - [facility] Procedures EXCISION OF STOMACH, ENDO, DIAGN (05/21/18) Family History: States: Unknown Family Hx - Social History Hx Tobacco Use: Yes Hx Alcohol Use: No Hx Substance Use: No - Immunization History Hx Tetanus Toxoid Vaccination: Yes Hx Influenza Vaccination: Yes Hx Pneumococcal Vaccination: Yes ED Course And Treatment O2 Sat by Pulse Oximetry: 98 NIHSS Stroke Scale - Date/Time Evaluation Performed Date Performed: 06/28/18 Time Performed: 23:24 Disposition Counseled Patient/Family Regarding: Studies Performed, Diagnosis - Disposition Disposition Time: 23:24
[2018-06-28] MEDS ORDERED: Sodium Chloride 0.9% 1,000 ML IV SCH (23:30)
[2018-06-28] MEDS ORDERED: Iodixanol 320 MG/ML 100 ML BOTTLE IV ONE ×2 (23:35)
--- NOTE | 2018-06-29 00:59 | C.PDOC ---
History Of Present Illness Patient around 1 pm , while in class developed some left arm pain, left leg pain and paresthisias. [place] somewhat tired. Took some tylenol without improvement. Upon arrival to the ed, no slurred speech, no visual changes, no f/c/n/v, moves all extremities Time Seen by Provider: 06/28/18 23:23 Chief Complaint (Nursing): Medical Clearance History Per: Patient History/Exam Limitations: no limitations Onset/Duration Of Symptoms: Hrs (12) Current Symptoms Are (Timing): Still Present Severity: Severe Pain Scale Rating Of: 6 Recent travel outside of the [place]: No Additional History Per: Patient Past Medical History Reviewed: Historical Data, Nursing Documentation, Vital Signs Vital Signs: Last Vital Signs Temp 97.7 F 06/28/18 23:17 Pulse 89 06/28/18 23:17 Resp 14 06/28/18 23:17 BP 116/77 06/28/18 23:17 Pulse Ox 98 06/28/18 23:17 - Medical History PMH: Anemia, Asthma, Chronic Pain (chronic abdominal pain ) Denies: Chronic Kidney Disease Surgical History: Denies: Cholecystectomy - [facility] Procedures EXCISION OF STOMACH, ENDO, DIAGN (05/21/18) Family History: States: No Known Family Hx - Social History Hx Tobacco Use: Yes Hx Alcohol Use: No Hx Substance Use: No - Immunization History Hx Tetanus Toxoid Vaccination: Yes Hx Influenza Vaccination: Yes Hx Pneumococcal Vaccination: Yes Review Of Systems Constitutional: Negative for: Fever, Chills Eyes: Negative for: Vision Change ENT: Negative for: Throat Pain Cardiovascular: Negative for: Chest Pain Respiratory: Negative for: Shortness of Breath Gastrointestinal: Negative for: Nausea, Vomiting, Abdominal Pain Genitourinary: Negative for: Dysuria Musculoskeletal: Negative for: Back Pain Skin: Negative for: Rash Neurological: Positive for: Weakness (left side) Psych: Negative for: Anxiety Physical Exam - Physical Exam Appears: Non-toxic Skin: Warm, Dry Head: Atraumatic Eye(s): bilateral: Normal Inspection, PERRL, EOMI Nose: Normal Oral Mucosa: Moist Tongue: Normal Appearing Lips: Normal Appearing Throat: No Erythema Neck: Supple Chest: Symmetrical Cardiovascular: Rhythm Regular Respiratory: No Rales, No Rhonchi, No Wheezing Gastrointestinal/Abdominal: Soft, No Tenderness, No Distention Back: Normal Inspection Extremity: No Tenderness, No Pedal Edema Extremity: Bilateral: Atraumatic, Normal Color And Temperature Pulses: Left Dorsalis Pedis: Normal, Right Dorsalis Pedis: Normal Neurological/Psych: Oriented x3, Normal Speech, Normal Cognition Gait: Unable To Assess Extremity: Left: Drift Before 10 Secs, Falls Before 10 Secs ED Course And Treatment - Laboratory Results Result Diagrams: 06/29/18 01:04 06/29/18 01:04 ECG: Interpreted By Me, Viewed By Me ECG Rhythm: Sinus Rhythm, Nonspecific Changes O2 Sat by Pulse Oximetry: 98 Pulse Ox Interpretation: Normal - Radiology CXR: Interpreted by Me, Viewed By Me CXR Interpretation: No: Infiltrates, Fracture, Pnemothorax Progress Note: 1:[address] Dahl - pt does not meet critaria for code strok. will give 300 mg po plavix. will hold off asa as pt is allergic. will get mri, mra and echo in am, NIHSS Stroke Scale - Date/Time Evaluation Performed Date Performed: 06/29/18 Time Performed: 00:46 When Was NIHSS Performed: Baseline - How Severe is the Stroke Level of Consciousness: 0=Alert LOC to Questions: 0=Both comments correct LOC to commands: 0=Obeys both correctly Best Gaze: 0=Normal Visual: 0=No visual loss Facial: 0=Normal Motor Arm - Left: 1=Drift noted before 10 sec Motor Arm - Right: 0=No drift Motor Leg - Left: 2=Falls before 5 sec Motor Leg - Right: 0=No drift Limb Ataxia: 0=Absent Sensory: 1=Mild to moderate loss Best Language: 0=No aphasia Dysarthia: 0=Normal articulation Extinction & Inattention (Neglect): 0=Normal, no object Score: 4 rTPA Inclusion/Exclusion - Refusal of Treatment Patient Refused Treatment: No - Inclusion Criteria for Altepase Patient is 18 years or Older: Yes The Clinical Diagnosis of Ischemic Stroke That is Causing a Potentially Disabling Neurological Deficit: Yes Time of Onset is Well Established to be Less Than 270 Minute Before Treatment Would Begin: No Risk/Benefit Discussed With Patient/Family Member Present: Yes - Exclusion Criteria for Altepase Uncontrolled Hypertension at Time of Treatment (Systolic BP above 185 or Diastolic BP above 110 mmHg): No Active Internal Bleeding: No Known Bleeding Diathesis Including but Not Limited to: Platelets Below 100, 000/mm,PTT Above 40 sec After Heparin Use, Current Use of Oral Anitcoagulant With INR Greater Than 1.7 or PT Greater Than 15 secs: No Evidence of an Intracranial Hemorrhage: No Evidence of Major Acute Infarct With Signs Greater Than 1/3 MCA Territory: No Suspicion of Subarachnoid Hemorrhage on Pretreatment Evaluation Even if CT Head Negative For Hemorrhage: No Disposition Discussed With DrGlen: Melanie Bartholomew Comment: accepted the pt on his service and took over the care at 2 AM Doctor Will See Patient In The: Hospital Counseled Patient/Family Regarding: Studies Performed, Diagnosis - Disposition Disposition: HOSPITALIZED Disposition Time: 00:56 Condition: GUARDED Forms: ALTHIA (Maltese) - Clinical Impression Clinical Impression: CVA (cerebral vascular accident) Decision To Admit - Pt Status Changed To: Hospital Disposition Of: Inpatient - Admit Certification Admit to Inpatient:: After my assessment, the patient will require hospitalization for at least two midnights. This is because of the severity of symptoms shown, intensity of services needed, and/or the medical risk in this patient being treated as an outpatient. - InPatient: Physician Admission Certification: I certify that this patient requires 2 or more midnights of care for the following reason:: After my assessment, the patient will require hospitalization for at least two midnights. This is because of the severity of symptoms shown, intensity of services needed, and/or the medical risk in this patient being treated as an outpatient. - . Bed Request Type: Telemetry Admitting Physician: Melanie Bartholomew Patient Diagnosis: CVA (cerebral vascular accident)
[2018-06-29] MEDS ORDERED: Iodixanol 320 MG/ML 100 ML BOTTLE IV ONE (01:00)
[2018-06-29] MEDS ORDERED: Sodium Chloride 0.9% 1,000 ML IV SCH (01:00)
[2018-06-29 01:16] LABS: BASO # 0.1 K/uL (0.0-0.2); BASO % 1.5 % (0.0-2.0); EOS # 0.2 K/uL (0.0-0.7); EOS % 2.4 % (0.0-4.0); LYMPH # 2.6 K/uL (1.0-4.3); LYMPH % 35.6 % (20.0-40.0); MEAN CELL VOLUME 95.9 fL (81.0-99.0); MEAN CORPUSCULAR HEMOGLOBIN 31.5 pg (27.0-31.0); MEAN CORPUSCULAR HGB CONC 32.9 g/dL (33.0-37.0); MEAN PLATELET VOLUME 9.2 fL (7.2-11.7); MONO # 0.6 K/uL (0.0-0.8); MONO % 8.5 % (0.0-10.0); NEUT # 3.8 K/uL (1.8-7.0); NRBC % 0.1 % (0.0-2.0); RBC 3.81 Mil/uL (3.80-5.20); WHITE BLOOD COUNT 7.3 K/uL (4.8-10.8)
[2018-06-29 01:31] LABS: LDL CHOLESTEROL 71 mg/dL (0-129)
[2018-06-29 01:40] LABS: ALB/GLOB RATIO 1.7 (1.0-2.1); ALBUMIN 3.9 g/dL (3.5-5.0); ALT/SGPT 24 U/L (9-52); AST/SGOT 27 U/L (14-36); BLOOD UREA NITROGEN 12 mg/dL (7-17); CALCIUM 8.6 mg/dl (8.6-10.4); GFR NON-AFRICAN AMERICAN > 60; HDL CHOLESTEROL 49 mg/dL (30-70)
[2018-06-29] MEDS ORDERED: Sodium Chloride 0.9% 1,000 ML IV ONE (01:43)
[2018-06-29 01:44] LABS: PROTHROMBIN TIME 10.5 SECONDS (9.7-12.2)
[2018-06-29] MEDS ORDERED: Sodium Chloride 0.9% 1,000 ML ONE (01:56)
--- NOTE | 2018-06-29 07:15 | CT ---
Date of service: 06/29/2018 PROCEDURE: CT HEAD WITHOUT CONTRAST. HISTORY: left weakness COMPARISON: 04/10/2015 TECHNIQUE: Axial computed tomography images were obtained through the head/brain without intravenous contrast. Radiation dose: Total exam DLP = 1115.84 mGy-cm. This CT exam was performed using one or more of the following dose reduction techniques: Automated exposure control, adjustment of the mA and/or kV according to patient size, and/or use of iterative reconstruction technique. FINDINGS: HEMORRHAGE: No intracranial hemorrhage. BRAIN: No mass effect or edema. No atrophy or chronic microvascular ischemic changes. VENTRICLES: Unremarkable. No hydrocephalus. CALVARIUM: Unremarkable. PARANASAL SINUSES: Mild mucosal thickening of the right maxillary sinus. MASTOID AIR CELLS: Unremarkable as visualized. No inflammatory changes. OTHER FINDINGS: None. IMPRESSION: No acute intracranial abnormality. If symptoms persists, consider correlation with MRI. A preliminary report was generated at 1:39 a.m. on 06/29/[address] Naz Garcia from [facility].
--- NOTE | 2018-06-29 07:41 | CP.PCM.PN ---
Subjective - Date & Time of Evaluation Date of Evaluation: 06/29/18 Time of Evaluation: 07:40 - Subjective Subjective: PGY 2 Medicine Note- Dr. Sanjay Bartholomew's service Patient seen and examined in no apparent acute distress. She denies subjective fevers or chills, nausea, vomiting or shortness of breath at this time. 33 year old female with a past medical history of polysubstance abuse present to the hospital after reporting a day of left sided pain. Patient states she was at rest at the time and wasn't doing anything prior to the symptoms. She states she was in college when it began. She reports taking Tylenol with no improvement in symptoms. Patient also reports some vision blurriness in conjunction. Patient denies any abdominal pain, lightheaded, dizziness, syncopal episodes, or any other complaints. Medical history: Denies Surgical history: Myomectomy Allergies: peanut, ibuprofen, naproxen, peach Medications: Denies Objective - Vital Signs/Intake and Output Vital Signs (last 24 hours): Temp Pulse Resp BP Pulse Ox 98.4 F 82 20 101/60 95 06/29/18 03:35 06/29/18 03:35 06/29/18 03:35 06/29/18 03:35 06/29/18 03:35 Intake and Output: 06/29/18 06/29/18 06:59 18:59 Intake Total 240 Balance 240 - Medications Medications: Current Medications Sodium Chloride (Sodium Chloride 0.9%) 1,000 mls @ 100 mls/hr IV .Q10H ONE Stop: 06/29/18 11:42 Last Admin: 06/29/18 02:07 Dose: Not Given - Labs Labs: 06/29/18 01:04 06/29/18 01:04 PT 10.5 SECONDS (9.7-12.2) 06/29/18 01:04 INR 1.0 06/29/18 01:04 APTT 32 SECONDS (21-34) 06/29/18 01:04 - Head Exam Head Exam: ATRAUMATIC, NORMAL INSPECTION - Eye Exam Eye Exam: EOMI, Normal appearance, PERRL Pupil Exam: NORMAL ACCOMODATION - ENT Exam ENT Exam: Mucous Membranes Moist, Normal Oropharynx - Respiratory Exam Respiratory Exam: Clear to Ausculation Bilateral, NORMAL BREATHING PATTERN. absent: Prolonged Expiratory Phase, Respiratory Distress - Cardiovascular Exam Cardiovascular Exam: REGULAR RHYTHM, +S1, +S2 - GI/Abdominal Exam GI & Abdominal Exam: Soft, Normal Bowel Sounds. absent: Hyperactive Bowel S ounds - Extremities Exam Extremities Exam: Full ROM, Normal Inspection. absent: Pedal Edema - Neurological Exam Neurological Exam: Alert, Awake, Oriented x3 - Psychiatric Exam Psychiatric exam: Normal Affect, Normal Mood - Skin Skin Exam: Dry, Intact, Normal Color, Warm. absent: Cyanosis, Pallor Assessment and Plan - Assessment and Plan (Free Text) Assessment: 33 year old female with a past medical history of polysubstance abuse presents to the hospital for left sided weakness for one day. Plan: 1. Left sided weakness/pain Plavix 300mg given in the E.D. Code stroke. Head CT: negative for acute process Head/Neck CTA: negtaive CXR: negative for acute cardiopulmonary process UDS: opiates +, cannaboids + Troponin (-)x1 Echocardiogram taken. Will f/u with results. Neurology consulted. Help appreciated Spinal canal cervical MRI ordered. Will f/u with results 2.Hyponatremia Na:130 Urine sodium ordered. Will f/u with results Serum osmolarity ordered. Will f/u with results PPX SCD's, Ambulating Pepcid All management per Dr. Sanjay Arteaga, PGY-2
--- NOTE | 2018-06-29 08:10 | RAD ---
HISTORY: Code Stroke COMPARISON: Chest x-ray performed 02/11/18 TECHNIQUE: Chest, one view. FINDINGS: The patient appears rotated. LUNGS: No focal consolidation. Please note that chest x-ray has limited sensitivity for the detection of pulmonary masses. PLEURA: No significant pleural effusion identified. No definite pneumothorax . CARDIOVASCULAR: Heart size appears within normal limits. No significant atherosclerotic calcification present. OSSEOUS STRUCTURES: No acute osseous abnormality identified. VISUALIZED UPPER ABDOMEN: Unremarkable. OTHER FINDINGS: None. IMPRESSION: No focal consolidation.
--- NOTE | 2018-06-29 10:30 | CT ---
Date of service: 06/29/2018 PROCEDURE: CTA HEAD AND NECK WITH CONTRAST HISTORY: Code Stroke COMPARISON: None available. TECHNIQUE: Initial noncontrast head CT was performed. Subsequently, CT angiogram of the head and neck were performed after the intravenous administration of 80 mL of Omnipaque 350. Contiguous 1.5mm thick images were obtained in the axial plane of the neck. 2-D coronal and sagittal MPR images were obtained. Imaging postprocessing was performed with 3-D images also obtained. A delayed contrast head CT was also obtained. This CT exam was performed using one or more of the following dose reduction techniques: Automated exposure control, adjustment of the mA and/or kV according to patient size, and/or use of iterative reconstruction technique. Contrast dose: 100 mL Visipaque 320 Radiation dose: Total exam DLP = 519.58 mGy-cm. FINDINGS: HEAD: Right: The intracranial internal carotid artery, and anterior and middle cerebral arteries are widely patent. Left: The intracranial internal carotid artery, and anterior and middle cerebral arteries are widely patent. Posterior circulation: The visualized intracranial vertebral arteries, basilar artery and posterior cerebral arteries are widely patent. There is no endoluminal filling defect to suggest thrombus. There is no intracranial saccular aneurysm. NECK: There is a three vessel aortic arch. There is no stenosis at the origins of the great vessels at the level of the aortic arch. No atherosclerotic calcification or mural plaque present. Right Carotid: On the right, the common carotid, internal carotid and external carotid arteries are widely patent. There is no hemodynamically significant stenosis in the internal carotid artery by NASCET criteria. Left Carotid: On the left, the common carotid, internal carotid and external carotid arteries are widely patent. There is no hemodynamically significant stenosis in the internal carotid artery by NASCET criteria. The vertebral arteries are widely patent. The visualized soft tissues of the neck are normal. The visualized brain and cervical spine are within normal limits. The lung apices are clear. IMPRESSION: 1. No evidence of endoluminal thrombus,occlusion or definite significant stenosis in the intracranial arteries. 2. No evidence of hemodynamically significant stenosis in the internal carotid arteries. 3. Patent bilateral vertebral arteries. A preliminary report was provided by [facility].
[2018-06-29 10:31] LABS: BARBITURATES, UR NEGATIVE (NEGATIVE); BENZODIAZEPINES, UR NEGATIVE (NEGATIVE); PHENCYCLIDINE, UR NEGATIVE (NEGATIVE)
[2018-06-29 11:09] LABS: OPIATES, UR POSITIVE (NEGATIVE)
--- NOTE | 2018-06-29 11:44 | CARD ---
APPROVED REPORT Date of service: 06/29/2018 EXAM: Two-dimensional and M-mode echocardiogram with Doppler and color Doppler with saline bubble. INDICATION CVA/TIA Echo Enhancing Agent Indication: Rule Out Septal Defect Agent/Amount Used: Agitated Saline 2D DIMENSIONS IVSd0.8 (0.7-1.1cm)LVDd4.6 (3.9-5.9cm) PWd0.9 (0.7-1.1cm)LA Jenyqa69 (18-58mL) LVDs3.0 (2.5-4.0cm)FS (%) 35.3 % LVEF (%)64.7 (>50%)LVEF (Andrew's)63.94 % M-Mode DIMENSIONS Left Atrium (MM)3.47 (2.5-4.0cm)IVSd0.72 (0.7-1.1cm) Aortic Root3.19 (2.2-3.7cm)LVDd5.16 (4.0-5.6cm) Aortic Cusp Exc.2.25 (1.5-2.0cm)PWd0.70 (0.7-1.1cm) FS (%) 29 %LVDs3.69 (2.0-3.8cm) LVEF (%)55 (>50%) Mitral Valve MV E Anegttzp92.9cm/sMV A Fsjahqgw08.5cm/sE/A ratio1.4 TDI Lateral E' Peak V15.10cm/sMedial E' Peak V10.54cm/sE/Lateral E'6.2 E/Medial E'8.9 Tricuspid Valve TR Peak Dpsfyumh632py/sTR Peak Gr.[id number] <Conclusion> normal size la,lv & ra rv. normal lv wall motion,thickness,systolic & diastolic function with lvef of 60-65%. normal aortic,mitral,tv & pv. trace mr & pi. no pericardial effusion.normal size aortic root. mildly dilated ivc,2.3 cm.
--- NOTE | 2018-06-29 14:01 | CP.PCM.CON ---
<Marina Lucio - Last Filed: 06/29/18 14:04> History of Present Illness - History of Present Illness History of Present Illness: PGY2- Neuro Consult note for Dr. Dahl Patient is a 33 year old female with PMHx of fibroids, PCOS, endometriosis who presented to the ER for left sided weakness and pain. The symptoms came on suddenly while she was in class. Patient thought the symptoms would resolve, but when they didn't she decided to come to the ER. Today patient is very sleepy on exam. Patient says she still has the same symptoms today. Patient complains of generalized left sided pain, but says the pain is "indescribable". Patient says she can ambulate, but it hurts her. Patient is asking for pain medications. Patient denies any emotional stressors in her life. Patient denies any headache, chest pain, shortness of breath, abdominal pain, nausea, vomiting, constipation, or diarrhea. All: Ibuprofen PMHx: fibroids, PCOS, endometriosis Surg: myomectomy 2017 Famhx: grandfather- stroke mom: asthma, CAD father: prostate CA at 63 Review of Systems - Constitutional Constitutional: absent: Chills, Fever - Cardiovascular Cardiovascular: absent: Chest Pain, Dyspnea - Respiratory Respiratory: absent: Dyspnea - Gastrointestinal Gastrointestinal: absent: Abdominal Pain, Constipation, Diarrhea, Nausea, Vomiting - Musculoskeletal Musculoskeletal: Muscle Weakness - Integumentary Integumentary: absent: Rash - Neurological Neurological: Sensory Deficit, Weakness Past Patient History - Infectious Disease Hx of Infectious Diseases: None - Past Medical History & Family History Past Medical History?: Yes - Past Social History Smoking Status: Former Smoker - CARDIAC Hx Cardiac Disorders: No - PULMONARY Hx Respiratory Disorders: Yes Hx Asthma: Yes - NEUROLOGICAL Hx Neurological Disorder: No - HEENT Hx HEENT Problems: No - RENAL Hx Chronic Kidney Disease: No - ENDOCRINE/METABOLIC Hx Endocrine Disorders: Yes (SEE COMMENT) Other/Comment: Hx PCOS. Hx uterine fibroids laproscopy - HEMATOLOGICAL/ONCOLOGICAL Hx Blood Disorders: Yes Hx Anemia: Yes - INTEGUMENTARY Hx Dermatological Problems: No - MUSCULOSKELETAL/RHEUMATOLOGICAL Hx Musculoskeletal Disorders: No Hx Falls: No - GASTROINTESTINAL Hx Gastrointestinal Disorders: No - GENITOURINARY/GYNECOLOGICAL Hx Genitourinary Disorders: Yes (SEE COMMENT) Other/Comment: Hx Uterine fibroids; PCOS - PSYCHIATRIC Hx Psychophysiologic Disorder: No Hx Substance Use: No - SURGICAL HISTORY Hx Surgeries: No Hx Cholecystectomy: No - ANESTHESIA Hx Anesthesia: Yes Hx Anesthesia Reactions: No Meds Allergies/Adverse Reactions: Allergies Allergy/AdvReac Type Severity Reaction Status Date / Time peanut Allergy Severe ANAPHYLAXIS Verified 06/28/18 23:22 ibuprofen Allergy Intermediate ANAPHYLAXIS Verified 06/28/18 23:22 naproxen sodium [From Aleve] Allergy Intermediate ITCHING Verified 06/28/18 23: 22 peach Allergy RASH Verified 06/28/18 23:22 prednisone Allergy ITCHING Verified 07/02/18 12:53 NSAIDS (Non-Steroidal AdvReac Intermediate NAUSEA Verified 06/28/18 23:22 Anti-Inflamma tussfed Allergy Mild RASH Uncoded 06/28/18 23:22 - Medications Medications: Current Medications Famotidine (Pepcid) 20 mg PO DAILY TIFFANIE Physical Exam - Constitutional Appears: Non-toxic, No Acute Distress - Head Exam Head Exam: ATRAUMATIC, NORMAL INSPECTION, NORMOCEPHALIC - Eye Exam Eye Exam: EOMI, Normal appearance - ENT Exam ENT Exam: Mucous Membranes Moist - Respiratory Exam Respiratory Exam: Clear to Auscultation Bilateral, NORMAL BREATHING PATTERN - Cardiovascular Exam Cardiovascular Exam: REGULAR RHYTHM, RRR, +S1, +S2 - GI/Abdominal Exam GI & Abdominal Exam: Normal Bowel Sounds, Soft. absent: Tenderness - Extremities Exam Extremities exam: Positive for: normal inspection. Negative for: tenderness - Neurological Exam Neurological exam: Alert, CN II-XII Intact, Oriented x3 - Expanded Neurological Exam Expanded Cerebellar Function: Finger to Nose: Normal Upper motor neuron: Babinski Sign: Normal, Yovanny Neglect: Normal, Pronator Drift: Normal Sensory exam: Lower Extremity Light Touch: Abnormal Left, Upper Extremity Light Touch: Abnormal Left Neuro motor strength exam: Left Upper Extremity: 4, Right Upper Extremity: 5, Left Lower Extremity: 3, Right Lower Extremity: 5 DTR: Bicep Left: 2+, Bicep Right: 2+, Brachioradialis Left: 2+, Brachioradialis Right: 2+, Patellar Left: 1+, Patellar Right: 2+, Tricep Left: 2+, Tricep Right: 2+ Coma Scale Eye Opening: SPONTANEOUS Coma Scale Motor Response: OBEYS COMMANDS - Psychiatric Exam Psychiatric exam: Normal Affect, Normal Mood - Skin Skin Exam: Intact, Normal Color, Warm Results - Vital Signs Recent Vital Signs: Last Vital Signs Temp 97.8 F 06/29/18 08:00 Pulse 69 06/29/18 08:00 Resp 20 06/29/18 08:00 BP 103/63 06/29/18 08:00 Pulse Ox 95 06/29/18 08:00 - Labs Result Diagrams: 06/29/18 01:04 06/29/18 01:04 Labs: Laboratory Results - last 24 hr 06/29/18 06/29/18 06/29/18 00:55 01:04 01:04 WBC 7.3 D RBC 3.81 Hgb 12.0 Hct 36.5 MCV 95.9 MCH 31.5 H MCHC 32.9 L RDW 14.0 Plt Count 200 MPV 9.2 Neut % (Auto) 52.0 Lymph % (Auto) 35.6 [place] % (Auto) 8.5 Eos % (Auto) 2.4 Baso % (Auto) 1.5 Neut # (Auto) 3.8 Lymph # (Auto) 2.6 [place] # (Auto) 0.6 Eos # (Auto) 0.2 Baso # (Auto) 0.1 PT 10.5 INR 1.0 APTT 32 Sodium Potassium Chloride Carbon Dioxide Anion Gap BUN Creatinine Est GFR ( Amer) Est GFR (Non-Af Amer) POC Glucose (mg/dL) 101 Random Glucose Hemoglobin A1c Serum Osmolality Calcium Total Bilirubin AST ALT Alkaline Phosphatase Troponin I Total Protein Albumin Globulin Albumin/Globulin Ratio Triglycerides Cholesterol LDL Cholesterol Direct HDL Cholesterol Ur Random Sodium Urine Opiates Screen Urine Methadone Screen Ur Barbiturates Screen Ur Phencyclidine Scrn Ur Amphetamines Screen U Benzodiazepines Scrn U Oth Cocaine Metabols U Cannabinoids Screen Blood Type Antibody Screen 06/29/18 06/29/18 06/29/18 01:04 01:04 01:07 WBC RBC Hgb Hct MCV MCH MCHC RDW Plt Count MPV Neut % (Auto) Lymph % (Auto) [place] % (Auto) Eos % (Auto) Baso % (Auto) Neut # (Auto) Lymph # (Auto) [place] # (Auto) Eos # (Auto) Baso # (Auto) PT INR APTT Sodium 130 L Potassium 3.8 Chloride 103 Carbon Dioxide 24 Anion Gap 7 L BUN 12 Creatinine 0.5 L Est GFR ( Amer) > 60 Est GFR (Non-Af Amer) > 60 POC Glucose (mg/dL) Random Glucose 98 Hemoglobin A1c 5.4 Serum Osmolality Calcium 8.6 Total Bilirubin 0.2 AST 27 ALT 24 Alkaline Phosphatase 60 Troponin I < 0.0120 Total Protein 6.2 L Albumin 3.9 Globulin 2.3 Albumin/Globulin Ratio 1.7 Triglycerides 60 Cholesterol 128 LDL Cholesterol Direct 71 HDL Cholesterol 49 Ur Random Sodium Urine Opiates Screen Urine Methadone Screen Ur Barbiturates Screen Ur Phencyclidine Scrn Ur Amphetamines Screen U Benzodiazepines Scrn U Oth Cocaine Metabols U Cannabinoids Screen Blood Type O POSITIVE Antibody Screen Negative 06/29/18 06/29/18 09:57 11:30 WBC RBC Hgb Hct MCV MCH MCHC RDW Plt Count MPV Neut % (Auto) Lymph % (Auto) [place] % (Auto) Eos % (Auto) Baso % (Auto) Neut # (Auto) Lymph # (Auto) [place] # (Auto) Eos # (Auto) Baso # (Auto) PT INR APTT Sodium Potassium Chloride Carbon Dioxide Anion Gap BUN Creatinine Est GFR ( Amer) Est GFR (Non-Af Amer) POC Glucose (mg/dL) Random Glucose Hemoglobin A1c Serum Osmolality 288 Calcium Total Bilirubin AST ALT Alkaline Phosphatase Troponin I Total Protein Albumin Globulin Albumin/Globulin Ratio Triglycerides Cholesterol LDL Cholesterol Direct HDL Cholesterol Ur Random Sodium 204 Urine Opiates Screen Positive H Urine Methadone Screen Negative Ur Barbiturates Screen Negative Ur Phencyclidine Scrn Negative Ur Amphetamines Screen Negative U Benzodiazepines Scrn Negative U Oth Cocaine Metabols Negative U Cannabinoids Screen Positive H Blood Type Antibody Screen Assessment & Plan - Assessment and Plan (Free Text) Assessment: 33 year old female with a past medical history of fibroids, presents to the hospital for left sided weakness for one day. Left sided weakness/pain r/o CVA, TIA Plavix 300mg given in the E.D. start ASA 81mg po daily Head CT: no acute intracranial abnormality. if symptoms persists, consider correlation with MRI. Head/Neck CTA: no evidence of endoluminal thrombus, occlusion, or definite significant stenosis in the intracranial arteries. 2. No evidence of hemodynamically significant stenosis in the internal carotid arteries. 3. Patent bilateral vertebral arteries. CXR (06/29/18): negative for acute cardiopulmonary process UDS: opiates +, cannaboids + Troponin (-) x1 f/u brain MRI and MRI cervical spinal cord echo: normal lv wall motion, thickness, systolic and diastolic function with LVEF 60-65%, normal aortic, mitral, tv and pv. trace mr and pi. no pericardial effusion, normal size aortic root please notify neuro of any acute changes in pt's condition or mental status. Case discussed with Dr. Hesham Lucio, PGY2 NIHSS Stroke Scale - Date/Time Evaluation Performed Date Performed: 06/29/18 Time Performed: 11:00 - How Severe is the Stoke Level of Consciousness: 0=Alert LOC to Questions: 0=Both comments correct LOC to commands: 0=Obeys both correctly Best Gaze: 0=Normal Visual: 0=No visual loss Facial: 0=Normal Motor Arm - Left: 0=No drift Motor Arm - Right: 0=No drift Motor Leg - Left: 2=Falls before 5 sec Motor Leg - Right: 0=No drift Limb Ataxia: 0=Absent Sensory: 1=Mild to moderate loss Best Language: 0=No aphasia Dysarthia: 0=Normal articulation Extinction & Inattention (Neglect): 0=Normal, no object Score: 3 <Yoel Dahl - Last Filed: 07/02/18 15:33> Meds - Medications Medications: Current Medications Docusate Sodium (Colace) 100 mg PO BID [facility] Last Admin: 07/02/18 09:47 Dose: 100 mg Famotidine (Pepcid) 20 mg PO DAILY [facility] Last Admin: 07/02/18 09:47 Dose: 20 mg Lorazepam (Ativan) 2 mg IVP ONCE PRN PRN Reason: Agitation Oxycodone/Acetaminophen (Percocet 5/325 Mg Tab) 1 tab PO Q6H PRN PRN Reason: Pain, severe (8-10) Stop: 07/03/18 16:58 Last Admin: 07/02/18 09:46 Dose: 1 tab Vitamin A (Vitamin A & D Oint Ud Foilpak) 1 ea TOP BID PRN PRN Reason: Dry mouth Last Admin: 07/01/18 20:28 Dose: 1 ea Results - Vital Signs Recent Vital Signs: Last Vital Signs Temp 97.8 F 07/02/18 07:00 Pulse 62 07/02/18 07:00 Resp 20 07/02/18 07:00 BP 105/68 07/02/18 07:00 Pulse Ox 98 07/02/18 07:00 - Labs Result Diagrams: 07/02/18 11:29 07/02/18 11:29 Labs: Laboratory Results - last 24 hr 07/02/18 07/02/18 11:29 11:29 WBC 7.4 RBC 4.11 Hgb 12.9 Hct 39.3 MCV 95.7 MCH 31.3 H MCHC 32.7 L RDW 14.2 Plt Count 229 MPV 9.5 Neut % (Auto) 57.6 Lymph % (Auto) 34.0 [place] % (Auto) 7.4 Eos % (Auto) 0.4 Baso % (Auto) 0.6 Neut # (Auto) 4.2 Lymph # (Auto) 2.5 [place] # (Auto) 0.6 Eos # (Auto) 0.0 Baso # (Auto) 0.0 Sodium 135 Potassium 3.6 Chloride 104 Carbon Dioxide 24 Anion Gap 10 BUN 14 Creatinine 0.6 L Est GFR ( Amer) > 60 Est GFR (Non-Af Amer) > 60 Random Glucose 104 Calcium 9.3 Phosphorus 2.8 Magnesium 1.6 Total Bilirubin 0.2 AST 20 ALT 14 Alkaline Phosphatase 53 Total Protein 6.6 Albumin 4.1 Globulin 2.5 Albumin/Globulin Ratio 1.6 Assessment & Plan (1) Radiculopathy affecting upper extremity Status: Acute Attending/Attestation - Attestation I have personally seen and examined this patient.: Yes I have fully participated in the care of the patient.: Yes I have reviewed all pertinent clinical information: Yes Notes (Text): I agree with the assessment and plan. Stroke seems less likely, but will image the cervical spine and brain for further evaluation. Will continue stroke work- up and management per policy until then.
--- NOTE | 2018-06-29 14:55 | MRI ---
Date of service: 06/29/2018 PROCEDURE: MRI BRAIN WITHOUT CONTRAST HISTORY: Left-sided weakness COMPARISON: Comparison made with prior CT scan and CTA brain both dated 06/29/2018. TECHNIQUE: Multiplanar, multisequence MR images of the brain were obtained without intravenous contrast enhancement. FINDINGS: HEMORRHAGE: No acute parenchymal, subarachnoid nor extra-axial hemorrhage. No evidence of hemosiderin deposition identified on gradient echo weighted sequence. DWI: No evidence of an acute or early subacute infarction seen on diffusion imaging.. BRAIN PARENCHYMA: No mass effect or edema. No significant atrophy or chronic microvascular ischemic changes. VENTRICLES: No obstructive hydrocephalus. Slightly prominent cisterna magna. CRANIUM: Unremarkable. ORBITS: Orbits and contents unremarkable. PARANASAL SINUSES/MASTOIDS: Moderate mucosal thickening seen in the right maxillary antrum with. VASCULAR SYSTEM: Visualized major vascular flow voids at skull base patent. OTHER FINDINGS: None. IMPRESSION: No acute intracranial hemorrhage or infarction.
--- NOTE | 2018-06-29 15:11 | MRI ---
Date of service: 06/29/2018 PROCEDURE: MR CERVICAL SPINE WITHOUT CONTRAST HISTORY: Left-sided weakness COMPARISON: None available. TECHNIQUE: Multiecho multiplanar sequences were performed through the cervical spine without the use of intravenous contrast. FINDINGS: There is straightening of the cervical spine with loss of normal cervical lordosis. Vertebral alignment is normal. Vertebral height is maintained. There is no acute fracture or spondylolisthesis. Bone marrow signal is within normal limits. The craniocervical junction is normal. The atlantoaxial joint is normal. The cervical cord is normal in contour, caliber and has normal intrinsic signal. Incompletely imaged and characterized is linear abnormal T2 hyperintense signal in the anterior thoracic cord at T4. C2-C3: No disc herniation, spinal canal stenosis or neural foraminal narrowing. C3-C4: No disc herniation, spinal canal stenosis or neural foraminal narrowing. C4-C5: There is a central annular tear and broad-based central disc protrusion with mild spinal canal stenosis. Also noted is superimposed left foraminal disc protrusion which in conjunction with mild facet arthropathy result in mild right and severe left neural foraminal narrowing and impingement of the exiting left C5 nerve root. C5-C6: Broad-based disc osteophyte complex with superimposed right paracentral and posterolateral disc protrusions indent the ventral thecal sac with mild spinal canal stenosis. Mild bilateral facet arthropathy contribute to mild right and moderate left neural foraminal narrowing. C6-C7: Right paracentral disc protrusion indents the ventral thecal sac with mild spinal canal stenosis. No neural foraminal narrowing. C7-T1: No disc herniation, spinal canal stenosis or neural foraminal narrowing. OTHER FINDINGS: The paraspinous soft tissues are normal. IMPRESSION: 1. Multilevel degenerative disc disease, worse at C5-6 with a broad-based disc osteophyte complex and superimposed right paracentral and posterolateral disc protrusions with mild spinal canal stenosis. Also noted is mild right and moderate left neural foraminal narrowing. 2. At C4-5 central annular tear and broad-based central disc protrusion with mild spinal canal stenosis. Superimposed left foraminal disc protrusion in conjunction with mild facet arthropathy result in severe left neural foraminal narrowing with impingement of the exiting left C5 nerve root. 3. Incompletely imaged and characterized segmental abnormal signal in the anterior thoracic cord at T4. A dedicated MRI of the thoracic spine without and with intravenous contrast is recommended for complete evaluation of the abnormality and thoracic cord.
--- NOTE | 2018-06-29 18:38 | CP.PCM.HP ---
Past Patient History - Infectious Disease Hx of Infectious Diseases: None - Past Medical History & Family History Past Medical History?: Yes - Past Social History Smoking Status: Former Smoker - CARDIAC Hx Cardiac Disorders: No - PULMONARY Hx Respiratory Disorders: Yes Hx Asthma: Yes - NEUROLOGICAL Hx Neurological Disorder: No - HEENT Hx HEENT Problems: No - RENAL Hx Chronic Kidney Disease: No - ENDOCRINE/METABOLIC Hx Endocrine Disorders: Yes (SEE COMMENT) Other/Comment: Hx PCOS. Hx uterine fibroids laproscopy - HEMATOLOGICAL/ONCOLOGICAL Hx Blood Disorders: Yes Hx Anemia: Yes - INTEGUMENTARY Hx Dermatological Problems: No - MUSCULOSKELETAL/RHEUMATOLOGICAL Hx Musculoskeletal Disorders: No Hx Falls: No - GASTROINTESTINAL Hx Gastrointestinal Disorders: No - GENITOURINARY/GYNECOLOGICAL Hx Genitourinary Disorders: Yes (SEE COMMENT) Other/Comment: Hx Uterine fibroids; PCOS - PSYCHIATRIC Hx Psychophysiologic Disorder: No Hx Substance Use: No - SURGICAL HISTORY Hx Surgeries: No Hx Cholecystectomy: No - ANESTHESIA Hx Anesthesia: Yes Hx Anesthesia Reactions: No Meds Allergies/Adverse Reactions: Allergies Allergy/AdvReac Type Severity Reaction Status Date / Time peanut Allergy Severe ANAPHYLAXIS Verified 06/28/18 23:22 ibuprofen Allergy Intermediate ANAPHYLAXIS Verified 06/28/18 23:22 naproxen sodium [From Aleve] Allergy Intermediate ITCHING Verified 06/28/18 23:22 peach Allergy RASH Verified 06/28/18 23:22 NSAIDS (Non-Steroidal AdvReac Intermediate NAUSEA Verified 06/28/18 23:22 Anti-Inflamma tussfed Allergy Mild RASH Uncoded 06/28/18 23:22 Physical Exam - Constitutional Appears: Well - Head Exam Head Exam: ATRAUMATIC, NORMAL INSPECTION, NORMOCEPHALIC - Eye Exam Eye Exam: EOMI, Normal appearance, PERRL Pupil Exam: NORMAL ACCOMODATION, PERRL - ENT Exam ENT Exam: Mucous Membranes Moist, Normal Exam - Neck Exam Neck exam: Positive for: Normal Inspection - Respiratory Exam Respiratory Exam: Decreased Breath Sounds - Cardiovascular Exam Cardiovascular Exam: REGULAR RHYTHM, +S1, +S2 - GI/Abdominal Exam GI & Abdominal Exam: Diminished Bowel Sounds, Soft - Rectal Exam Rectal Exam: Deferred Results - Vital Signs Recent Vital Signs: Last Vital Signs Temp 97.9 F 06/29/18 16:00 Pulse 78 06/29/18 17:06 Resp 20 06/29/18 16:00 BP 101/63 06/29/18 16:00 Pulse Ox 97 06/29/18 16:00 - Labs Result Diagrams: 06/29/18 01:04 06/29/18 01:04 Labs: Laboratory Results - last 24 hr 06/29/18 06/29/18 06/29/18 00:55 01:04 01:04 WBC 7.3 D RBC 3.81 Hgb 12.0 Hct 36.5 MCV 95.9 MCH 31.5 H MCHC 32.9 L RDW 14.0 Plt Count 200 MPV 9.2 Neut % (Auto) 52.0 Lymph % (Auto) 35.6 [place] % (Auto) 8.5 Eos % (Auto) 2.4 Baso % (Auto) 1.5 Neut # (Auto) 3.8 Lymph # (Auto) 2.6 [place] # (Auto) 0.6 Eos # (Auto) 0.2 Baso # (Auto) 0.1 PT 10.5 INR 1.0 APTT 32 Sodium Potassium Chloride Carbon Dioxide Anion Gap BUN Creatinine Est GFR ( Amer) Est GFR (Non-Af Amer) POC Glucose (mg/dL) 101 Random Glucose Hemoglobin A1c Serum Osmolality Calcium Total Bilirubin AST ALT Alkaline Phosphatase Troponin I Total Protein Albumin Globulin Albumin/Globulin Ratio Triglycerides Cholesterol LDL Cholesterol Direct HDL Cholesterol Ur Random Sodium Urine Opiates Screen Urine Methadone Screen Ur Barbiturates Screen Ur Phencyclidine Scrn Ur Amphetamines Screen U Benzodiazepines Scrn U Oth Cocaine Metabols U Cannabinoids Screen Blood Type Antibody Screen 06/29/18 06/29/18 06/29/18 01:04 01:04 01:07 WBC RBC Hgb Hct MCV MCH MCHC RDW Plt Count MPV Neut % (Auto) Lymph % (Auto) [place] % (Auto) Eos % (Auto) Baso % (Auto) Neut # (Auto) Lymph # (Auto) [place] # (Auto) Eos # (Auto) Baso # (Auto) PT INR APTT Sodium 130 L Potassium 3.8 Chloride 103 Carbon Dioxide 24 Anion Gap 7 L BUN 12 Creatinine 0.5 L Est GFR ( Amer) > 60 Est GFR (Non-Af Amer) > 60 POC Glucose (mg/dL) Random Glucose 98 Hemoglobin A1c 5.4 Serum Osmolality Calcium 8.6 Total Bilirubin 0.2 AST 27 ALT 24 Alkaline Phosphatase 60 Troponin I < 0.0120 Total Protein 6.2 L Albumin 3.9 Globulin 2.3 Albumin/Globulin Ratio 1.7 Triglycerides 60 Cholesterol 128 LDL Cholesterol Direct 71 HDL Cholesterol 49 Ur Random Sodium Urine Opiates Screen Urine Methadone Screen Ur Barbiturates Screen Ur Phencyclidine Scrn Ur Amphetamines Screen U Benzodiazepines Scrn U Oth Cocaine Metabols U Cannabinoids Screen Blood Type O POSITIVE Antibody Screen Negative 06/29/18 06/29/18 09:57 11:30 WBC RBC Hgb Hct MCV MCH MCHC RDW Plt Count MPV Neut % (Auto) Lymph % (Auto) [place] % (Auto) Eos % (Auto) Baso % (Auto) Neut # (Auto) Lymph # (Auto) [place] # (Auto) Eos # (Auto) Baso # (Auto) PT INR APTT Sodium Potassium Chloride Carbon Dioxide Anion Gap BUN Creatinine Est GFR ( Amer) Est GFR (Non-Af Amer) POC Glucose (mg/dL) Random Glucose Hemoglobin A1c Serum Osmolality 288 Calcium Total Bilirubin AST ALT Alkaline Phosphatase Troponin I Total Protein Albumin Globulin Albumin/Globulin Ratio Triglycerides Cholesterol LDL Cholesterol Direct HDL Cholesterol Ur Random Sodium 204 Urine Opiates Screen Positive H Urine Methadone Screen Negative Ur Barbiturates Screen Negative Ur Phencyclidine Scrn Negative Ur Amphetamines Screen Negative U Benzodiazepines Scrn Negative U Oth Cocaine Metabols Negative U Cannabinoids Screen Positive H Blood Type Antibody Screen
[2018-06-30] MEDS ORDERED: Oxycodone/Acetaminophen 5/325 mg Tab PO STA (02:41)
[2018-06-30] MEDS ORDERED: Dexamethasone 4 mg/1 ml IV ONE (13:19)
[2018-06-30] MEDS: Oxycodone/Acetaminophen 5/325 mg Tab PO PRN ×2 (17:27→23:35)
--- NOTE | 2018-06-30 18:23 | CP.PCM.PN ---
Subjective - Date & Time of Evaluation Date of Evaluation: 06/30/18 Time of Evaluation: 09:15 - Subjective Subjective: clinically same Objective - Vital Signs/Intake and Output Vital Signs (last 24 hours): Temp Pulse Resp BP Pulse Ox 98.3 F 74 20 105/68 96 06/30/18 17:00 06/30/18 17:00 06/30/18 17:00 06/30/18 17:00 06/30/18 17:00 Intake and Output: 06/30/18 06/30/18 06:59 18:59 Output Total 250 Balance -250 - Medications Medications: Current Medications Famotidine (Pepcid) 20 mg PO DAILY [facility] Last Admin: 06/30/18 09:40 Dose: 20 mg Oxycodone/Acetaminophen (Percocet 5/325 Mg Tab) 1 tab PO Q6H PRN PRN Reason: Pain, severe (8-10) Stop: 07/03/18 16:58 Last Admin: 06/30/18 17:27 Dose: 1 tab - Labs Labs: 06/29/18 01:04 06/29/18 01:04 PT 10.5 SECONDS (9.7-12.2) 06/29/18 01:04 INR 1.0 06/29/18 01:04 APTT 32 SECONDS (21-34) 06/29/18 01:04 - Constitutional Appears: Well - Head Exam Head Exam: ATRAUMATIC, NORMAL INSPECTION, NORMOCEPHALIC - Eye Exam Eye Exam: EOMI, Normal appearance, PERRL Pupil Exam: NORMAL ACCOMODATION, PERRL - ENT Exam ENT Exam: Mucous Membranes Moist, Normal Exam - Neck Exam Neck Exam: Full ROM, Normal Inspection. absent: Lymphadenopathy - Respiratory Exam Respiratory Exam: Decreased Breath Sounds - Cardiovascular Exam Cardiovascular Exam: REGULAR RHYTHM, +S1, +S2 - GI/Abdominal Exam GI & Abdominal Exam: Soft, Diminished Bowel Sounds - Rectal Exam Rectal Exam: Deferred
--- NOTE | 2018-07-01 12:55 | CP.PCM.PN ---
Subjective - Date & Time of Evaluation Date of Evaluation: 07/01/18 Time of Evaluation: 09:30 - Subjective Subjective: clinically same Objective - Vital Signs/Intake and Output Vital Signs (last 24 hours): Temp Pulse Resp BP Pulse Ox 98.0 F 65 20 92/56 L 97 07/01/18 07:00 07/01/18 07:00 07/01/18 07:00 07/01/18 07:00 07/01/18 07:00 Intake and Output: 07/01/18 07/01/18 06:59 18:59 Intake Total 170 Balance 170 - Medications Medications: Current Medications Famotidine (Pepcid) 20 mg PO DAILY [facility] Last Admin: 07/01/18 10:29 Dose: Not Given Oxycodone/Acetaminophen (Percocet 5/325 Mg Tab) 1 tab PO Q6H PRN PRN Reason: Pain, severe (8-10) Stop: 07/03/18 16:58 Last Admin: 06/30/18 23:35 Dose: 1 tab - Labs Labs: 06/29/18 01:04 06/29/18 01:04 PT 10.5 SECONDS (9.7-12.2) 06/29/18 01:04 INR 1.0 06/29/18 01:04 APTT 32 SECONDS (21-34) 06/29/18 01:04 - Constitutional Appears: Well - Head Exam Head Exam: ATRAUMATIC, NORMAL INSPECTION, NORMOCEPHALIC - Eye Exam Eye Exam: EOMI, Normal appearance, PERRL Pupil Exam: NORMAL ACCOMODATION, PERRL - ENT Exam ENT Exam: Mucous Membranes Moist, Normal Exam - Neck Exam Neck Exam: Full ROM, Normal Inspection. absent: Lymphadenopathy - Respiratory Exam Respiratory Exam: Decreased Breath Sounds - Cardiovascular Exam Cardiovascular Exam: REGULAR RHYTHM, +S1, +S2 - GI/Abdominal Exam GI & Abdominal Exam: Soft, Diminished Bowel Sounds - Rectal Exam Rectal Exam: Deferred
[2018-07-01] MEDS: Oxycodone/Acetaminophen 5/325 mg Tab PO PRN ×2 (13:06→19:56)
[2018-07-01] MEDS ORDERED: Dexamethasone 10 MG in Dextrose 5% In Water 50 ML IV ONE (18:00)
--- NOTE | 2018-07-01 18:08 | CP.PCM.PN ---
Subjective - Date & Time of Evaluation Date of Evaluation: 07/01/18 Time of Evaluation: 18:01 - Subjective Subjective: Neurology Progress Note: Ms. Ramey was seen and examined today at bedside. She was able to ambulate today. Her pain and strength is improved. She continues to have neck pain and left arm pain that limits her movements. I discussed the cervical MRI results with her. The brain is normal and she does not have a stroke, but there is nerve root compression at C5 on the left side. This is likely causing her pain. She was unable to tolerate the thoracic MRI despite being given Ativan yesterday, there was concern that there is another lesion at T4. I reviewed this and it does appear that there is some edema in the cord, but it cannot be fully visualized on the cervical MRI. I discussed the importance of obtaining the imaging with the patient and she agreed to attempt again. Objective - Vital Signs/Intake and Output Vital Signs (last 24 hours): Temp Pulse Resp BP Pulse Ox 98.3 F 83 18 105/61 97 07/01/18 15:23 07/01/18 15:23 07/01/18 15:23 07/01/18 15:23 07/01/18 15:23 Intake and Output: 07/01/18 07/01/18 06:59 18:59 Intake Total 170 Balance 170 - Medications Medications: Current Medications Famotidine (Pepcid) 20 mg PO DAILY [facility] Last Admin: 07/01/18 13:05 Dose: 20 mg Dexamethasone 10 mg/ Dextrose 51 mls @ 100 mls/hr IV ONCE ONE Stop: 07/01/18 18:29 Oxycodone/Acetaminophen (Percocet 5/325 Mg Tab) 1 tab PO Q6H PRN PRN Reason: Pain, severe (8-10) Stop: 07/03/18 16:58 Last Admin: 07/01/18 13:06 Dose: 1 tab - Labs Labs: 06/29/18 01:04 06/29/18 01:04 PT 10.5 SECONDS (9.7-12.2) 06/29/18 01:04 INR 1.0 06/29/18 01:04 APTT 32 SECONDS (21-34) 06/29/18 01:04 - Constitutional Appears: Well - Head Exam Head Exam: ATRAUMATIC, NORMAL INSPECTION, NORMOCEPHALIC - Eye Exam Eye Exam: EOMI, Normal appearance, PERRL Pupil Exam: NORMAL ACCOMODATION, PERRL - ENT Exam ENT Exam: Mucous Membranes Moist, Normal Exam - Neck Exam Neck Exam: Full ROM, Normal Inspection. absent: Lymphadenopathy - Respiratory Exam Respiratory Exam: Clear to Ausculation Bilateral, NORMAL BREATHING PATTERN - Cardiovascular Exam Cardiovascular Exam: REGULAR RHYTHM, +S1, +S2. absent: Murmur - GI/Abdominal Exam GI & Abdominal Exam: Soft, Normal Bowel Sounds. absent: Tenderness - Rectal Exam Rectal Exam: NORMAL INSPECTION - Exam Exam: Circumcision, NORMAL INSPECTION External exam: NORMAL EXTERNAL EXAM Speculum exam: NORMAL SPECULUM EXAM Bimanual exam: NORMAL BIMANUAL EXAM - Extremities Exam Extremities Exam: Full ROM, Normal Capillary Refill, Normal Inspection. absent: Joint Swelling, Pedal Edema - Back Exam Back Exam: NORMAL INSPECTION - Neurological Exam Neurological Exam: Alert, Awake, CN II-XII Intact, Normal Gait, Oriented x3 Neuro motor strength exam: Left Upper Extremity: 4 (limited by pain, but strength appears intact), Right Upper Extremity: 5, Left Lower Extremity: 4, Right Lower Extremity: 5 Additional comments: Reflexes diminished in LUE at the elbow - Psychiatric Exam Psychiatric exam: Normal Affect, Normal Mood - Skin Skin Exam: Dry, Intact, Normal Color, Warm Assessment and Plan (1) Radiculopathy affecting upper extremity Assessment & Plan: There is evidence of some cord edema as well below in the thoracic region, but it is difficult to determine based on the previous imaging. I will give the patient another dose of decadron 10 mg tonight, which may help swelling and pain. I recommend consultation with neurosurgery for further evaluation. She could not tolerate gabapentin, will try Lyrica. Status: Acute
[2018-07-01] MEDS: Dexamethasone 4 mg/1 ml IVP ONE ×2 (18:26→18:37)
[2018-07-01] MEDS ORDERED: Vitamins A & D Oint UD Foilpak TOP PRN (20:06)
[2018-07-02] MEDS: Oxycodone/Acetaminophen 5/325 mg Tab PO PRN ×3 (02:14→19:22)
--- NOTE | 2018-07-02 07:56 | CP.PCM.PN ---
Subjective - Date & Time of Evaluation Date of Evaluation: 07/02/18 Time of Evaluation: 07:55 - Subjective Subjective: Dr. Sanjay Bartholomew Service Patient seen and examined at bedside. Per nursing no acute events occurred overnight. Patient reports an improvement in left sided body pain with the Percocet. Patient reports feeling tired this morning. Patient denies any chest pain, shortness of breath, fevers, chills, nausea, vomiting, headaches, dizziness, or any other complaints. Objective - Vital Signs/Intake and Output Vital Signs (last 24 hours): Temp Pulse Resp BP Pulse Ox 97.9 F 71 18 102/59 L 97 07/01/18 23:15 07/01/18 23:15 07/01/18 23:15 07/01/18 23:15 07/01/18 23:15 Intake and Output: 07/02/18 07/02/18 06:59 18:59 Intake Total 240 Balance 240 - Medications Medications: Current Medications Famotidine (Pepcid) 20 mg PO DAILY TIFFANIE Last Admin: 07/01/18 13:05 Dose: 20 mg Oxycodone/Acetaminophen (Percocet 5/325 Mg Tab) 1 tab PO Q6H PRN PRN Reason: Pain, severe (8-10) Stop: 07/03/18 16:58 Last Admin: 07/02/18 02:14 Dose: 1 tab Vitamin A (Vitamin A & D Oint Ud Foilpak) 1 ea TOP BID PRN PRN Reason: Dry mouth Last Admin: 07/01/18 20:28 Dose: 1 ea - Labs Labs: 06/29/18 01:04 06/29/18 01:04 PT 10.5 SECONDS (9.7-12.2) 06/29/18 01:04 INR 1.0 06/29/18 01:04 APTT 32 SECONDS (21-34) 06/29/18 01:04 - Head Exam Head Exam: ATRAUMATIC, NORMAL INSPECTION - Eye Exam Eye Exam: EOMI, Normal appearance, PERRL - ENT Exam ENT Exam: Mucous Membranes Moist, Normal Oropharynx - Respiratory Exam Respiratory Exam: Clear to Ausculation Bilateral, NORMAL BREATHING PATTERN. absent: Prolonged Expiratory Phase, Respiratory Distress - Cardiovascular Exam Cardiovascular Exam: REGULAR RHYTHM, +S1, +S2 - GI/Abdominal Exam GI & Abdominal Exam: Soft, Normal Bowel Sounds. absent: Hyperactive Bowel So unds - Neurological Exam Neurological Exam: Alert, Awake, CN II-XII Intact, Oriented x3 - Psychiatric Exam Psychiatric exam: Normal Affect, Normal Mood - Skin Skin Exam: Dry, Intact Assessment and Plan - Assessment and Plan (Free Text) Assessment: 33 year old female with a past medical history of polysubstance abuse presents to the hospital for left sided weakness for one day. Plan: 1. Left sided weakness/pain Plavix 300mg given in the E.D. Code stroke. Head CT: negative for acute process Head/Neck CTA: negtaive CXR: negative for acute cardiopulmonary process UDS: opiates +, cannaboids + Troponin (-)x1 Echocardiogram taken. -EF 60-65% -Trace mitral regurgitation -Mildly dilated IVC -No pericardial effusion Spinal canal cervical MRI -Multilevel degenerative disc disease, worse at C5-6 with a broad-based disc osteophyte complex and superimposed right paracentral and posterolateral disc protrusions with mild spinal canal stenosis. Also noted is mild right and moderate left neural foraminal narrowing. -At C4-5 central annular tear and broad-based central disc protrusion with mild spinal canal stenosis. Superimposed left foraminal disc protrusion in conjunction with mild facet arthropathy result in severe left neural foraminal narrowing with impingement of the exiting left C5 nerve root. -Incompletely imaged and characterized segmental abnormal signal in the anterior thoracic cord at T4. A dedicated MRI of the thoracic spine without and with intravenous contrast is recommended for complete evaluation of the abnormality and thoracic cord. Neurology consulted. Help appreciated Spinal thoracic MRI ordered. Will f/u with results. -Patient initial attempt was unsuccessful due to her feeling claustrophobic Medications: Dexamethasone 10mg IV Once Percocet 1tab PO Q6 PRN 2.Hyponatremia Resolved. Urine sodium 204 Serum osmolarity 288 3.Constipation Likely secondary to Percocet -Colace 100mg PO BID 4.Hypotensive -750ml CC NS bolus given. -Patient responding appropriately to fluids -Patient remains asymptomatic. PPX SCD's, Ambulating Pepcid All management per Dr. Sanjay Bartholomew Dispo: Patient awaiting repeat thoracic spine MRI. Patient has been hypotensive, but responding well to fluid resuscitation. Continue to monitor. Sundar Arteaga, PGY-2
--- NOTE | 2018-07-02 10:09 | CP.PCM.PN ---
<Marina Lucio - Last Filed: 07/02/18 15:37> Subjective - Date & Time of Evaluation Date of Evaluation: 07/02/18 Time of Evaluation: 09:00 - Subjective Subjective: PGY [address] Rico Patient seen and examined at bedside. Patient says her weakness and pain are better, but still present. Patient says when she tried to get the MRI done she became too anxious, but she is willing to try again. Patient has no other complaints. Patient denies any headache, blurry vision, chest pain, abdominal pain, nausea, vomiting, constipation, or diarrhea. Objective - Vital Signs/Intake and Output Vital Signs (last 24 hours): Temp Pulse Resp BP Pulse Ox 97.8 F 62 20 105/68 98 07/02/18 07:00 07/02/18 07:00 07/02/18 07:00 07/02/18 07:00 07/02/18 07:00 Intake and Output: 07/02/18 07/02/18 06:59 18:59 Intake Total 240 Balance 240 - Medications Medications: Current Medications Docusate Sodium (Colace) 100 mg PO BID [facility] Last Admin: 07/02/18 09:47 Dose: 100 mg Famotidine (Pepcid) 20 mg PO DAILY [facility] Last Admin: 07/02/18 09:47 Dose: 20 mg Oxycodone/Acetaminophen (Percocet 5/325 Mg Tab) 1 tab PO Q6H PRN PRN Reason: Pain, severe (8-10) Stop: 07/03/18 16:58 Last Admin: 07/02/18 09:46 Dose: 1 tab Vitamin A (Vitamin A & D Oint Ud Foilpak) 1 ea TOP BID PRN PRN Reason: Dry mouth Last Admin: 07/01/18 20:28 Dose: 1 ea - Labs Labs: 06/29/18 01:04 06/29/18 01:04 PT 10.5 SECONDS (9.7-12.2) 06/29/18 01:04 INR 1.0 06/29/18 01:04 APTT 32 SECONDS (21-34) 06/29/18 01:04 - Constitutional Appears: Non-toxic, No Acute Distress - Head Exam Head Exam: ATRAUMATIC, NORMAL INSPECTION, NORMOCEPHALIC - Eye Exam Eye Exam: EOMI, Normal appearance - ENT Exam ENT Exam: Mucous Membranes Moist - Respiratory Exam Respiratory Exam: Clear to Ausculation Bilateral, NORMAL BREATHING PATTERN - Cardiovascular Exam Cardiovascular Exam: REGULAR RHYTHM, RRR, +S1, +S2 - GI/Abdominal Exam GI & Abdominal Exam: Soft, Normal Bowel Sounds. absent: Tenderness - Extremities Exam Extremities Exam: Normal Inspection. absent: Full ROM - Back Exam Back Exam: NORMAL INSPECTION - Neurological Exam Neurological Exam: Alert, Awake, Oriented x3 Neuro motor strength exam: Left Upper Extremity: 4, Right Upper Extremity: 5, Left Lower Extremity: 4, Right Lower Extremity: 5 - Psychiatric Exam Psychiatric exam: Normal Affect, Normal Mood - Skin Skin Exam: Intact, Normal Color, Warm Assessment and Plan - Assessment and Plan (Free Text) Assessment: 33 year old female with a past medical history of fibroids, presents to the hospital for left sided weakness for one day. Nerve Root Compression at C5 with LUE and LLE weakness and pain Plavix 300mg given in the E.D. ASA 81mg po daily MRI brain (06/29/18): no acute intracranial hemorrhage or infarction MRI C spine (06/29/18): 1. multilevel degenerative disc disease, worse at C5-C6 with broad based disc osteophyte complex and superimposed right paracentral and posterolateral disc protrusions with mild spinal canal stenosis. 2. at C4-C5 central annular tear and broad based central disc protrusion with mild spinal canal stenosis. superimposed left foraminal disc protrusion in conjunction with mild facet arthropathy result in severe left neural foraminal narrowing with impingement of the exiting left C5 nerve root. 3. Incompletely imaged and characterized segmental abnormal signal in the anterior thoracic cord at T4. f/u MRI thoracic spine Neurosurg consulted, help appreciated Head CT: no acute intracranial abnormality. if symptoms persists, consider correlation with MRI. Head/Neck CTA (06/29/18): no evidence of endoluminal thrombus, occlusion, or definite significant stenosis in the intracranial arteries. 2. No evidence of hemodynamically significant stenosis in the internal carotid arteries. 3. Patent bilateral vertebral arteries. CXR (06/29/18): negative for acute cardiopulmonary process echo (06/29/18): normal lv wall motion, thickness, systolic and diastolic fu nction with LVEF 60-65%, normal aortic, mitral, tv and pv. trace mr and pi. no pericardial effusion, normal size aortic root UDS: opiates +, cannaboids + Troponin (-) x1 please notify neuro of any acute changes in pt's condition or mental status. Case discussed with Dr. Jacky Lucio, PGY2 <Ananth Rico - Last Filed: 07/02/18 22:58> Objective - Vital Signs/Intake and Output Vital Signs (last 24 hours): Temp Pulse Resp BP Pulse Ox 98.1 F 78 78 H 106/65 18 L 07/02/18 16:22 07/02/18 16:22 07/02/18 16:22 07/02/18 16:22 07/02/18 16:22 Intake and Output: 07/02/18 07/02/18 06:59 18:59 Intake Total 240 Balance 240 - Medications Medications: Current Medications Docusate Sodium (Colace) 100 mg PO BID [facility] Last Admin: 07/02/18 17:57 Dose: Not Given Famotidine (Pepcid) 20 mg PO DAILY [facility] Last Admin: 07/02/18 09:47 Dose: 20 mg Lorazepam (Ativan) 2 mg IVP ONCE PRN PRN Reason: Agitation Oxycodone/Acetaminophen (Percocet 5/325 Mg Tab) 1 tab PO Q6H PRN PRN Reason: Pain, severe (8-10) Stop: 07/03/18 16:58 Vitamin A (Vitamin A & D Oint Ud Foilpak) 1 ea TOP BID PRN PRN Reason: Dry mouth Last Admin: 07/01/18 20:28 Dose: 1 ea - Labs Labs: 07/02/18 11:29 07/02/18 11:29 PT 10.5 SECONDS (9.7-12.2) 06/29/18 01:04 INR 1.0 06/29/18 01:04 APTT 32 SECONDS (21-34) 06/29/18 01:04 Assessment and Plan - Assessment and Plan (Free Text) Assessment: 33 yr old woman who presented with back pain and was found to have C5 severe stenosis with broad based herniation. MRI C spine (06/29/18): 1. multilevel degenerative disc disease, worse at C5-C6 with broad based disc osteophyte complex and superimposed right paracentral and posterolateral disc protrusions with mild spinal canal stenosis. 2. at C4-C5 central annular tear and broad based central disc protrusion with mild spinal canal stenosis. superimposed left foraminal disc protrusion in conjunction with mild facet arthropathy result in severe left neural foraminal narrowing with impingement of the exiting left C5 nerve root. 3. Incompletely imaged and characterized segmental abnormal signal in the anterior thoracic cord at T4. f/u MRI thoracic spine Neurosurg consulted, help appreciated MRI C spine (06/29/18): 1. multilevel degenerative disc disease, worse at C5-C6 with broad based disc osteophyte complex and superimposed right paracentral and posterolateral disc protrusions with mild spinal canal stenosis. 2. at C4-C5 central annular tear and broad based central disc protrusion with mild spinal canal stenosis. superimposed left foraminal disc protrusion in conjunction with mild facet arthropathy result in severe left neural foraminal narrowing with impingement of the exiting left C5 nerve root. 3. Incompletely imaged and characterized segmental abnormal signal in the anterior thoracic cord at T4. f/u MRI thoracic spine Neurosurg consulted, help appreciated a/p: continue decadron Will follow up neurosurgical recommendations. Attending Attestation: I examined the patient independently and formulated the assessment and plan. Thank you Dr Rico
[2018-07-02 11:54] LABS: BASO % 0.6 % (0.0-2.0); EOS % 0.4 % (0.0-4.0); HEMOGLOBIN 12.9 g/dL (11.0-16.0); LYMPH # 2.5 K/uL (1.0-4.3); MEAN CELL VOLUME 95.7 fL (81.0-99.0); MEAN CORPUSCULAR HEMOGLOBIN 31.3 pg (27.0-31.0); MEAN CORPUSCULAR HGB CONC 32.7 g/dL (33.0-37.0); MEAN PLATELET VOLUME 9.5 fL (7.2-11.7); MONO # 0.6 K/uL (0.0-0.8); MONO % 7.4 % (0.0-10.0); NEUT # 4.2 K/uL (1.8-7.0); NEUT % 57.6 % (50.0-75.0); NRBC % 0.1 % (0.0-2.0); RBC 4.11 Mil/uL (3.80-5.20); RED CELL DISTRIBUTION WIDTH 14.2 % (11.5-14.5); WHITE BLOOD COUNT 7.4 K/uL (4.8-10.8)
[2018-07-02 12:08] LABS: ALB/GLOB RATIO 1.6 (1.0-2.1); ALBUMIN 4.1 g/dL (3.5-5.0); ALT/SGPT 14 U/L (9-52); AST/SGOT 20 U/L (14-36); BLOOD UREA NITROGEN 14 mg/dL (7-17); CALCIUM 9.3 mg/dl (8.6-10.4); GFR NON-AFRICAN AMERICAN > 60
--- NOTE | 2018-07-02 14:17 | CP.PCM.PN ---
Subjective - Date & Time of Evaluation Date of Evaluation: 07/02/18 Time of Evaluation: 10:30 - Subjective Subjective: clinically same Objective - Vital Signs/Intake and Output Vital Signs (last 24 hours): Temp Pulse Resp BP Pulse Ox 97.8 F 62 20 105/68 98 07/02/18 07:00 07/02/18 07:00 07/02/18 07:00 07/02/18 07:00 07/02/18 07:00 Intake and Output: 07/02/18 07/02/18 06:59 18:59 Intake Total 240 Balance 240 - Medications Medications: Current Medications Docusate Sodium (Colace) 100 mg PO BID [facility] Last Admin: 07/02/18 09:47 Dose: 100 mg Famotidine (Pepcid) 20 mg PO DAILY [facility] Last Admin: 07/02/18 09:47 Dose: 20 mg Lorazepam (Ativan) 2 mg IVP ONCE PRN PRN Reason: Agitation Oxycodone/Acetaminophen (Percocet 5/325 Mg Tab) 1 tab PO Q6H PRN PRN Reason: Pain, severe (8-10) Stop: 07/03/18 16:58 Last Admin: 07/02/18 09:46 Dose: 1 tab Vitamin A (Vitamin A & D Oint Ud Foilpak) 1 ea TOP BID PRN PRN Reason: Dry mouth Last Admin: 07/01/18 20:28 Dose: 1 ea - Labs Labs: 07/02/18 11:29 07/02/18 11:29 PT 10.5 SECONDS (9.7-12.2) 06/29/18 01:04 INR 1.0 06/29/18 01:04 APTT 32 SECONDS (21-34) 06/29/18 01:04
[2018-07-02] MEDS ORDERED: Sodium Chloride 0.9% 500 ML IV ONE ×2 (15:00→15:45)
[2018-07-03] MEDS: Oxycodone/Acetaminophen 5/325 mg Tab PO PRN ×2 (02:06→09:07)
--- NOTE | 2018-07-03 06:29 | CON ---
DATE: 07/02/2018 HISTORY OF PRESENT ILLNESS: This is a 33-year-old white female, who was admitted on 06/28/2018, reported that, that day, she developed left arm pain, left leg pain, paresthesias, felt tired, was brought to the emergency room, initially thought to have a code stroke, CT and MRI of the head were negative. They obtained an MRI of the cervical spine showing a C5-6 right-sided central disk herniation, mild to moderate, with what is read as left-sided foraminal stenosis, severe; however, my review shows that it is only mild to moderate. The patient currently says that the pain is better. She is complaining of pain from her head all the way down the entire left side of her body. She says that her entire left side is weak. She has also complaint of numbness in the entire left side of her body. This includes her head. She has previous multiple histories of admission for various pain complaints. PHYSICAL EXAMINATION: At this point, her exam finds that she is awake, alert, oriented. Her cranial nerves are intact; however, she does have decreased sensation in the entire trigeminal distribution on the left. She has decreased sensation in the entire left arm, the entire left leg and various parts of her trunk on the left side only, this all preserves midline on the abdomen. Her reflexes were 2/4. She has excellent strength throughout. There is no focal motor deficits. At this point, her neuro exam does not correlate with the MRI findings. You would not expect complete left-sided numbness from a C5-6 right-sided small disk herniation without any significant compression or impingement on the spinal cord nor do you expect numbness in the entire left arm from a C5-6 foraminal stenosis. In addition, the fact that she has the decreased sensation in her face further documents that this is not related to the cervical spine. There was some notation on the MRI report at the bottom of the MRI in the thoracic area, there was some evidence of cord edema, to me this looked like a widened central canal but being at the end of the MRI field, this could be artifact. In any event, any finding in the thoracic spine would not correspond to any of her complaints. It is my opinion that there is no indication for any surgical intervention. She should be evaluated further by Neurology and perhaps Psychiatry. Suman Mckee MD [facility] # [id number]
[2018-07-03 08:13] VITALS: BP 90/56; PULSE 62; RESP 20; TEMP 97.5; O2SAT 98
== END 2018-07-03 13:00 | disposition left against medical advice (07) | DRG 14 ==
LOC: C.ER 23:14 → C.9E 06-29 02:00 → C.5S 06-29 03:28
PROVIDERS: ADMIT Internal Medicine Nephrology; ATTEND Internal Medicine Nephrology
DX: I63.9 Cerebral infarction, unspecified (principal); F11.10 Opioid abuse, uncomplicated; M50.222 Other cervical disc displacement at C5-C6 level; M54.10 Radiculopathy, site unspecified; J45.909 Unspecified asthma, uncomplicated; M48.02 Spinal stenosis, cervical region; Z87.891 Personal history of nicotine dependence; E28.2 Polycystic ovarian syndrome; R20.2 Paresthesia of skin; F12.10 Cannabis abuse, uncomplicated; G81.94 Hemiplegia, unspecified affecting left nondominant side

== ENCOUNTER 2018-07-21 12:10 | Emergency (ER) | payer MEDICAID ==
[2018-07-21 12:10] VITALS: BMI 27.8
[2018-07-21 12:25] VITALS: RESP 18; TEMP 98.5; O2SAT 99
[2018-07-21] MEDS ORDERED: Oxycodone/Acetaminophen 5/325 mg Tab PO STA (13:34)
[2018-07-21] MEDS ORDERED: Oxycodone/Acetaminophen 5/325 mg Tab ONE (13:41)
--- NOTE | 2018-07-21 13:49 | C.PDOC ---
History Of Present Illness 33 year old female presents to the ED for evaluation of chronic left arm pain. Per records the pt was seen and admitted for the same Jun 29, she had an extensive work-up including cardiovascular work-up, head CT, c-spine MRI, showing signs for left C5 disk bulge. Pt has many prior evaluations for pain, substance abuse, and insomnia. Denies fever, chills, CP, SOB, and any other associated symptoms. Time Seen by Provider: 07/21/18 13:15 Chief Complaint (Nursing): Weakness/Neurological Deficit History Per: Patient History/Exam Limitations: no limitations Onset/Duration Of Symptoms: Days Current Symptoms Are (Timing): Still Present Recent travel outside of the [place]: No Past Medical History Reviewed: Historical Data, Nursing Documentation, Vital Signs Vital Signs: Last Vital Signs Temp 98.5 F 07/21/18 12:23 Pulse 103 H 07/21/18 12:23 Resp 18 07/21/18 12:23 BP 116/76 07/21/18 12:23 Pulse Ox 99 07/21/18 12:23 - Medical History PMH: Anemia, Asthma, Chronic Pain (chronic abdominal pain ) Denies: Diabetes, Hepatitis, HIV, HTN, Chronic Kidney Disease, Seizures, Sexually Transmitted Disease Surgical History: Denies: Cholecystectomy - [facility] Procedures EXCISION OF STOMACH, ENDO, DIAGN (05/21/18) Family History: States: Unknown Family Hx - Social History Hx Tobacco Use: Yes Hx Alcohol Use: No Hx Substance Use: No - Immunization History Hx Tetanus Toxoid Vaccination: Yes Hx Influenza Vaccination: Yes Hx Pneumococcal Vaccination: Yes Review Of Systems Constitutional: Negative for: Fever, Chills Cardiovascular: Negative for: Chest Pain Respiratory: Negative for: Shortness of Breath Musculoskeletal: Positive for: Arm Pain (left. ) Physical Exam - Physical Exam Appears: Non-toxic, No Acute Distress, Other (initially asleep. ) Skin: Warm, Dry Head: Atraumatic, Normacephalic Eye(s): bilateral: Normal Inspection, Other (pupils normal. ) Oral Mucosa: Moist Neck: Normal ROM, Supple Chest: Symmetrical Cardiovascular: Rhythm Regular, No Murmur Respiratory: Normal Breath Sounds, No Rales, No Rhonchi, No Wheezing Gastrointestinal/Abdominal: Normal Exam, Soft, No Tenderness Extremity: Normal ROM, No Tenderness, No Deformity, Other (LT upper extremity: 4/5 strength secondary to pain. mainly uses LT hand to use phone. (-) insight to injuries. ) Neurological/Psych: Oriented x3, Normal Speech, Normal Cognition ED Course And Treatment O2 Sat by Pulse Oximetry: 99 (RA) Pulse Ox Interpretation: Normal Medical Decision Making Medical Decision Making: Initial plan: -Percocet Progress/Update: 1:45pm : Discussed case with Dr. Rico. Evaluated as in pt. Findings reviewed. Pt okay to follow-up as outpatient to follow trigger point injections. chronic L arm pain related to LC5 disk bulge no new neuro findings today Many prior psych/pain related visits d/w Jacky- Neuro Consult- ok to f/u as opt to consider trigger point injections Disposition Doctor Will See Patient In The: Office Counseled Patient/Family Regarding: Studies Performed, Diagnosis - Disposition Referrals: [facility] [Outside] [facility] [Outside] [facility] [Outside] Ananth Rico MD [Staff Provider] - Disposition: HOME/ ROUTINE Disposition Time: 13:48 Condition: GOOD Additional Instructions: continue NSAIDS as able outpatient follow-up with Dr. Rico- Neurologist Call for appt Consider trigger point injections Instructions: Peripheral Neuropathy Forms: [facility] (Macedonian) - Clinical Impression Clinical Impression: Arm pain, chronic - Scribe Statement The provider has reviewed the documentation as recorded by the Scribe (Leydi Akers) Provider Attestation: All medical record entries made by the Scribe were at my direction and personally dictated by me. I have reviewed the chart and agree that the record accurately reflects my personal performance of the history, physical exam, medical decision making, and the department course for this patient. I have also personally directed, reviewed, and agree with the discharge instructions and disposition.
[2018-07-21 13:57] VITALS: BP 111/68; PULSE 100
== END 2018-07-21 13:57 | disposition home or self-care (01) ==
LOC: C.ER 12:10
DX: M79.602 Pain in left arm (principal); G89.29 Other chronic pain

== ENCOUNTER 2018-09-27 01:49 | Inpatient (IN) | payer MEDICAID ==
[2018-09-27 01:49] VITALS: BMI 27.8
--- NOTE | 2018-09-27 02:15 | C.PDOC ---
Time Seen by Provider: 09/27/18 02:15 Chief Complaint (Nursing): Syncope Past Medical History Vital Signs: Last Vital Signs Temp 97.9 F 09/27/18 02:02 Pulse 72 09/27/18 02:02 Resp 16 09/27/18 02:02 BP 105/66 09/27/18 02:02 Pulse Ox 98 09/27/18 02:02 Primary Care Provider: Shaik Goldman - Medical History PMH: Anemia, Asthma, Chronic Pain (chronic abdominal pain ) Denies: Diabetes, Hepatitis, HIV, HTN, Chronic Kidney Disease, Seizures, Sexually Transmitted Disease Surgical History: Denies: Cholecystectomy - [facility] Procedures EXCISION OF STOMACH, ENDO, DIAGN (05/21/18) Family History: States: Unknown Family Hx - Social History Hx Tobacco Use: Yes Hx Alcohol Use: No Hx Substance Use: No - Immunization History Hx Tetanus Toxoid Vaccination: Yes Hx Influenza Vaccination: Yes Hx Pneumococcal Vaccination: Yes ED Course And Treatment O2 Sat by Pulse Oximetry: 98 Disposition Counseled Patient/Family Regarding: Studies Performed, Diagnosis - Disposition Disposition Time: 02:15
[2018-09-27] MEDS ORDERED: Sodium Chloride 0.9% 1,000 ML IV ONE ×2 (02:35→05:12)
[2018-09-27] MEDS ORDERED: Pantoprazole 80 MG in Sodium Chloride 0.9% 100 ML IV STA (02:35)
--- NOTE | 2018-09-27 02:36 | C.PDOC ---
History Of Present Illness Patient presents to the ER feeling weak and tired, reports having had black tarry stools for the past 2 days. While at dinner tonight patient had two syncopal episodes. Denies chest pain, palpitations, SOB, or vision changes. Time Seen by Provider: 09/27/18 02:15 Chief Complaint (Nursing): Syncope History Per: Patient History/Exam Limitations: no limitations Onset/Duration Of Symptoms: Days Current Symptoms Are (Timing): Still Present Recent travel outside of the [place]: No Past Medical History Reviewed: Historical Data, Nursing Documentation, Vital Signs Vital Signs: Last Vital Signs Temp 97.9 F 09/27/18 02:02 Pulse 72 09/27/18 02:02 Resp 16 09/27/18 02:02 BP 105/66 09/27/18 02:02 Pulse Ox 98 09/27/18 02:02 Primary Care Provider: Shaik Goldman - Medical History PMH: Anemia, Asthma, Chronic Pain (chronic abdominal pain ) Denies: Diabetes, Hepatitis, HIV, HTN, Chronic Kidney Disease, Seizures, Sexually Transmitted Disease Surgical History: Denies: Cholecystectomy - [facility] EXCISION OF STOMACH, ENDO, DIAGN (05/21/18) Family History: States: No Known Family Hx - Social History Hx Tobacco Use: Yes Hx Alcohol Use: No Hx Substance Use: No - Immunization History Hx Tetanus Toxoid Vaccination: Yes Hx Influenza Vaccination: Yes Hx Pneumococcal Vaccination: Yes Review Of Systems Constitutional: Positive for: Weakness, Other (Tired). Negative for: Fever, Chills Eyes: Negative for: Vision Change Cardiovascular: Negative for: Chest Pain, Palpitations Respiratory: Negative for: Cough, Shortness of Breath Gastrointestinal: Positive for: Other (Black tarry stools). Negative for: Nausea, Vomiting, Abdominal Pain Neurological: Negative for: Weakness, Numbness Physical Exam - Physical Exam Appears: Non-toxic Skin: Warm, Dry Head: Normacephalic Oral Mucosa: Moist Chest: Symmetrical, No Tenderness Cardiovascular: Rhythm Regular Respiratory: No Rales, No Rhonchi, No Wheezing Gastrointestinal/Abdominal: Soft, No Tenderness Rectal: Other (Black tarry stools, chaperoned by XAVIER Lewis.) Neurological/Psych: Oriented x3 ED Course And Treatment - Laboratory Results Result Diagrams: 09/27/18 02:59 09/27/18 02:59 O2 Sat by Pulse Oximetry: 98 (Room air) Pulse Ox Interpretation: Normal Progress Note: Blood work, EKG, urinalysis, and occult blood test ordered. IV fluids, zofran, and protonix administered. Disposition Discussed With Dr.: Melanie Bartholomew Comment: accepted the pt on his service and took over the care at 4:12 AM Doctor Will See Patient In The: Hospital Counseled Patient/Family Regarding: Studies Performed, Diagnosis - Disposition Disposition: HOSPITALIZED Disposition Time: 02:35 Condition: FAIR Forms: [facility] (Tristanian) - POA Present On Arrival: None - Clinical Impression Clinical Impression: Dizziness, Syncope, GI bleed, Melena - Scribe Statement The provider has reviewed the documentation as recorded by the Scribgenna Betts All medical record entries made by the Scribe were at my direction and personally dictated by me. I have reviewed the chart and agree that the record accurately reflects my personal performance of the history, physical exam, medical decision making, and the department course for this patient. I have also personally directed, reviewed, and agree with the discharge instructions and disposition. Decision To Admit - Pt Status Changed To: Hospital Disposition Of: Inpatient - Admit Certification Admit to Inpatient:: After my assessment, the patient will require hospitalization for at least two midnights. This is because of the severity of symptoms shown, intensity of services needed, and/or the medical risk in this patient being treated as an outpatient. - InPatient: Physician Admission Certification: I certify that this patient requires 2 or more midnights of care for the following reason:: After my assessment, the patient will require hospitalization for at least two midnights. This is becaus e of the severity of symptoms shown, intensity of services needed, and/or the medical risk in this patient being treated as an outpatient. - . Bed Request Type: Telemetry Admitting Physician: Melanie Bartholomew Patient Diagnosis: Dizziness, Syncope, GI bleed, Melena
[2018-09-27] MEDS ORDERED: Sodium Chloride 0.9% 1,000 ML ONE (03:01)
[2018-09-27 03:04] LABS: BASO % 0.6 % (0.0-2.0); EOS # 0.2 K/uL (0.0-0.7); EOS % 2.3 % (0.0-4.0); HEMOGLOBIN 12.8 g/dL (11.0-16.0); LYMPH # 2.6 K/uL (1.0-4.3); LYMPH % 38.7 % (20.0-40.0); MEAN CELL VOLUME 95.1 fL (81.0-99.0); MEAN CORPUSCULAR HEMOGLOBIN 31.6 pg (27.0-31.0); MEAN CORPUSCULAR HGB CONC 33.2 g/dL (33.0-37.0); MEAN PLATELET VOLUME 9.4 fL (7.2-11.7); MONO # 0.6 K/uL (0.0-0.8); NEUT # 3.4 K/uL (1.8-7.0); NEUT % 49.4 % (50.0-75.0); RBC 4.05 Mil/uL (3.80-5.20); RED CELL DISTRIBUTION WIDTH 13.6 % (11.5-14.5); WHITE BLOOD COUNT 6.8 K/uL (4.8-10.8)
[2018-09-27 03:09] LABS: INR 1.1; PARTIAL THROMBOPLASTIN TIME 36.5 SECONDS (21-34); PROTHROMBIN TIME 11.5 SECONDS (9.7-12.2)
[2018-09-27 03:36] LABS: ALB/GLOB RATIO 1.6 (1.0-2.1); ALT/SGPT 21 U/L (9-52); AST/SGOT 26 U/L (14-36); BLOOD UREA NITROGEN 17 mg/dL (7-17); CALCIUM 9.1 mg/dl (8.6-10.4); GFR NON-AFRICAN AMERICAN > 60
[2018-09-27] MEDS ORDERED: Pantoprazole 80 MG in Sodium Chloride 0.9% 100 ML IVP SCH (04:15)
[2018-09-27 04:18] LABS: URINE BILIRUBIN NEGATIVE (NEGATIVE); URINE BLOOD NEGATIVE (NEGATIVE); URINE CLARITY Clear (Clear); URINE COLOR Yellow (YELLOW); URINE GLUCOSE (UA) NORMAL (Normal); URINE LEUKOCYTE ESTERASE NEG Leu/uL (Negative); URINE PROTEIN NEGATIVE (NEGATIVE); URINE UROBILINOGEN NORMAL mg/dL (0.2-1.0)
[2018-09-27 04:25] LABS: HCG,QUALITATIVE URINE NEGATIVE (NEGATIVE)
[2018-09-27] MEDS ORDERED: Sodium Chloride 0.9% 1,000 ML IV SCH (06:30)
[2018-09-27 07:03] VITALS: RESP 20
--- NOTE | 2018-09-27 08:28 | CP.PCM.CON ---
<Loreto Luke - Last Filed: 09/27/18 08:22> History of Present Illness - History of Present Illness History of Present Illness: GI Fellow PGY5, consult note. Za Ramey is 33yF with a pmhx of chronic abdominal pain, anemia, asthma, PCOS, endometriosis presenting with complaints of black tarry stools for 3 days followed by a syncopal episode. She has multiple admissions fro abdominal pain and CT imaging was reviewed from prior visits and negative for GI pathology. Pt had a EGD with Dr. Toney 05/2018 that was negative for PUD, path negative for H.pylori. Pt reports syncopal episode was whiel eating dinner witnessed by carmen. Denies NSAID use. reports taking iron supplements which she just started taking a few days ago. No prior colonoscopy. At the time of evaluation pt refusing rectal exam and refusing Labs reviewed, no significant abnormalities CT A/P reviewed showed no acute findings. PMHx - As stated in HPI PSHx - tonsillectomy, fibroids removed Fmhx - denies GI related cancer, IBD, liver disease SocHx - Previous smoker 20 pack yr hx but stopped last year, denies EtOH use, no drug use. 12pt ROS completed and negative except for above. Past Patient History - Infectious Disease Hx of Infectious Diseases: None - Past Medical History & Family History Past Medical History?: Yes - Past Social History Smoking Status: Former Smoker - CARDIAC Hx Hypertension: No - PULMONARY Hx Asthma: Yes - NEUROLOGICAL Hx Seizures: No - HEENT Hx HEENT Problems: No - RENAL Hx Chronic Kidney Disease: No - ENDOCRINE/METABOLIC Hx Endocrine Disorders: Yes (SEE COMMENT) Other/Comment: Hx PCOS. Hx uterine fibroids laproscopy - HEMATOLOGICAL/ONCOLOGICAL Hx Anemia: Yes Hx Human Immunodeficiency Virus (HIV): No - INTEGUMENTARY Hx Dermatological Problems: No - MUSCULOSKELETAL/RHEUMATOLOGICAL Hx Musculoskeletal Disorders: No Hx Falls: No - GASTROINTESTINAL Hx Gastrointestinal Disorders: No - GENITOURINARY/GYNECOLOGICAL Hx Sexually Transmitted Disorders: No - PSYCHIATRIC Hx Substance Use: No - SURGICAL HISTORY Hx Cholecystectomy: No - ANESTHESIA Hx Anesthesia: No Hx Anesthesia Reactions: No Meds Allergies/Adverse Reactions: Allergies Allergy/AdvReac Type Severity Reaction Status Date / Time peanut Allergy Severe ANAPHYLAXIS Verified 09/27/18 02:10 ibuprofen Allergy Intermediate ANAPHYLAXIS Verified 09/27/18 02:10 naproxen sodium [From Aleve] Allergy Intermediate ITCHING Verified 09/27/18 02:10 peach Allergy RASH Verified 09/27/18 02:10 prednisone Allergy ITCHING Verified 09/27/18 02:10 NSAIDS (Non-Steroidal AdvReac Intermediate NAUSEA Verified 09/27/18 02:10 Anti-Inflamma tussfed Allergy Mild RASH Uncoded 09/27/18 02:10 - Medications Medications: Current Medications Sodium Chloride (Sodium Chloride 0.9%) 1,000 mls @ 100 mls/hr IV .Q10H TIFFANIE Pantoprazole Sodium (Protonix Ec Tab) 40 mg PO DAILY TIFFANIE Physical Exam - Constitutional Appears: Non-toxic, No Acute Distress - Head Exam Head Exam: ATRAUMATIC, NORMAL INSPECTION, NORMOCEPHALIC - Eye Exam Eye Exam: EOMI, Normal appearance, PERRL Pupil Exam: PERRL - ENT Exam ENT Exam: Mucous Membranes Moist, Normal Exam - Neck Exam Neck exam: Positive for: Normal Inspection - Respiratory Exam Respiratory Exam: Clear to Auscultation Bilateral, NORMAL BREATHING PATTERN - Cardiovascular Exam Cardiovascular Exam: REGULAR RHYTHM, RRR, +S1, +S2 - GI/Abdominal Exam GI & Abdominal Exam: Normal Bowel Sounds, Soft. absent: Distended, Firm, Guarding, Organomegaly, Pulsatile Mass, Tenderness - Rectal Exam Rectal Exam: Deferred - Extremities Exam Extremities exam: Positive for: full ROM, normal inspection - Back Exam Back exam: NORMAL INSPECTION - Neurological Exam Neurological exam: Alert, Oriented x3 - Psychiatric Exam Psychiatric exam: Normal Affect, Normal Mood Results - Vital Signs Recent Vital Signs: Last Vital Signs Temp 97.6 F 09/27/18 07:02 Pulse 77 09/27/18 07:02 Resp 20 09/27/18 07:02 BP 113/77 09/27/18 07:02 Pulse Ox 98 09/27/18 07:02 - Labs Result Diagrams: 09/27/18 02:59 09/27/18 02:59 Labs: Laboratory Results - last 24 hr 09/27/18 09/27/18 09/27/18 02:27 02:35 02:44 WBC RBC Hgb Hct MCV MCH MCHC RDW Plt Count MPV Neut % (Auto) Lymph % (Auto) [place] % (Auto) Eos % (Auto) Baso % (Auto) Neut # (Auto) Lymph # (Auto) [place] # (Auto) Eos # (Auto) Baso # (Auto) PT INR APTT Sodium Potassium Chloride Carbon Dioxide Anion Gap BUN Creatinine Est GFR ( Amer) Est GFR (Non-Af Amer) POC Glucose (mg/dL) 100 Random Glucose Calcium Total Bilirubin AST ALT Alkaline Phosphatase Total Protein Albumin Globulin Albumin/Globulin Ratio Urine Color Yellow Urine Clarity Clear Urine pH 7.0 Ur Specific [place] 1.006 Urine Protein Negative Urine Glucose (UA) Normal Urine Ketones Negative Urine Blood Negative Urine Nitrate Negative Urine Bilirubin Negative Urine Urobilinogen Normal Ur Leukocyte Esterase Neg Urine RBC (Auto) < 1 Urine HCG, Qual Negative Stool Occult Blood Positive H Blood Type Antibody Screen 09/27/18 09/27/18 09/27/18 02:59 02:59 02:59 WBC 6.8 RBC 4.05 Hgb 12.8 Hct 38.5 MCV 95.1 MCH 31.6 H MCHC 33.2 RDW 13.6 Plt Count 193 MPV 9.4 Neut % (Auto) 49.4 L Lymph % (Auto) 38.7 [place] % (Auto) 9.0 Eos % (Auto) 2.3 Baso % (Auto) 0.6 Neut # (Auto) 3.4 Lymph # (Auto) 2.6 [place] # (Auto) 0.6 Eos # (Auto) 0.2 Baso # (Auto) 0.0 PT 11.5 INR 1.1 APTT 36.5 H Sodium 136 Potassium 3.8 Chloride 104 Carbon Dioxide 24 Anion Gap 12 BUN 17 Creatinine 0.8 Est GFR ( Amer) > 60 Est GFR (Non-Af Amer) > 60 POC Glucose (mg/dL) Random Glucose 99 Calcium 9.1 Total Bilirubin 0.3 AST 26 ALT 21 Alkaline Phosphatase 60 Total Protein 6.6 Albumin 4.0 Globulin 2.5 Albumin/Globulin Ratio 1.6 Urine Color Urine Clarity Urine pH Ur Specific [place] Urine Protein Urine Glucose (UA) Urine Ketones Urine Blood Urine Nitrate Urine Bilirubin Urine Urobilinogen Ur Leukocyte Esterase Urine RBC (Auto) Urine HCG, Qual Stool Occult Blood Blood Type Antibody Screen 09/27/18 03:11 WBC RBC Hgb Hct MCV MCH MCHC RDW Plt Count MPV Neut % (Auto) Lymph % (Auto) [place] % (Auto) Eos % (Auto) Baso % (Auto) Neut # (Auto) Lymph # (Auto) [place] # (Auto) Eos # (Auto) Baso # (Auto) PT INR APTT Sodium Potassium Chloride Carbon Dioxide Anion Gap BUN Creatinine Est GFR ( Amer) Est GFR (Non-Af Amer) POC Glucose (mg/dL) Random Glucose Calcium Total Bilirubin AST ALT Alkaline Phosphatase Total Protein Albumin Globulin Albumin/Globulin Ratio Urine Color Urine Clarity Urine pH Ur Specific [place] Urine Protein Urine Glucose (UA) Urine Ketones Urine Blood Urine Nitrate Urine Bilirubin Urine Urobilinogen Ur Leukocyte Esterase Urine RBC (Auto) Urine HCG, Qual Stool Occult Blood Blood Type O POSITIVE Antibody Screen Negative Assessment & Plan - Assessment and Plan (Free Text) Assessment: 1. FOBT+ stool 2. Syncope Plan: -Pt refusing rectal exam and any endoscopic evaluation -Hgb stable -No further rectal bleeding -Reviewed recent EGD -Discussed with pt about EGD in setting of dark stool and reported syncope -DC PPI drip -Start diet small frequent meals -FOBT can be positive from iron supplements and hemorrhoids -Needs outpatient followup <Hunter Anderson - Last Filed: 09/27/18 12:19> Meds - Medications Medications: Current Medications Enoxaparin Sodium (Lovenox) 40 mg SC DAILY [facility] Last Admin: 09/27/18 11:16 Dose: 40 mg Pantoprazole Sodium (Protonix Ec Tab) 40 mg PO DAILY [facility] Last Admin: 09/27/18 11:16 Dose: 40 mg Results - Vital Signs Recent Vital Signs: Last Vital Signs Temp 97.6 F 09/27/18 07:02 Pulse 57 L 09/27/18 07:39 Resp 20 09/27/18 07:02 BP 113/77 09/27/18 07:02 Pulse Ox 98 09/27/18 07:02 - Labs Result Diagrams: 09/27/18 02:59 09/27/18 02:59 Labs: Laboratory Results - last 24 hr 09/27/18 09/27/18 09/27/18 02:27 02:35 02:44 WBC RBC Hgb Hct MCV MCH MCHC RDW Plt Count MPV Neut % (Auto) Lymph % (Auto) [place] % (Auto) Eos % (Auto) Baso % (Auto) Neut # (Auto) Lymph # (Auto) [place] # (Auto) Eos # (Auto) Baso # (Auto) PT INR APTT Sodium Potassium Chloride Carbon Dioxide Anion Gap BUN Creatinine Est GFR ( Amer) Est GFR (Non-Af Amer) POC Glucose (mg/dL) 100 Random Glucose Calcium Total Bilirubin AST ALT Alkaline Phosphatase Total Protein Albumin Globulin Albumin/Globulin Ratio Urine Color Yellow Urine Clarity Clear Urine pH 7.0 Ur Specific [place] 1.006 Urine Protein Negative Urine Glucose (UA) Normal Urine Ketones Negative Urine Blood Negative Urine Nitrate Negative Urine Bilirubin Negative Urine Urobilinogen Normal Ur Leukocyte Esterase Neg Urine RBC (Auto) < 1 Urine HCG, Qual Negative Stool Occult Blood Positive H Blood Type Antibody Screen 09/27/18 09/27/18 09/27/18 02:59 02:59 02:59 WBC 6.8 RBC 4.05 Hgb 12.8 Hct 38.5 MCV 95.1 MCH 31.6 H MCHC 33.2 RDW 13.6 Plt Count 193 MPV 9.4 Neut % (Auto) 49.4 L Lymph % (Auto) 38.7 [place] % (Auto) 9.0 Eos % (Auto) 2.3 Baso % (Auto) 0.6 Neut # (Auto) 3.4 Lymph # (Auto) 2.6 [place] # (Auto) 0.6 Eos # (Auto) 0.2 Baso # (Auto) 0.0 PT 11.5 INR 1.1 APTT 36.5 H Sodium 136 Potassium 3.8 Chloride 104 Carbon Dioxide 24 Anion Gap 12 BUN 17 Creatinine 0.8 Est GFR ( Amer) > 60 Est GFR (Non-Af Amer) > 60 POC Glucose (mg/dL) Random Glucose 99 Calcium 9.1 Total Bilirubin 0.3 AST 26 ALT 21 Alkaline Phosphatase 60 Total Protein 6.6 Albumin 4.0 Globulin 2.5 Albumin/Globulin Ratio 1.6 Urine Color Urine Clarity Urine pH Ur Specific [place] Urine Protein Urine Glucose (UA) Urine Ketones Urine Blood Urine Nitrate Urine Bilirubin Urine Urobilinogen Ur Leukocyte Esterase Urine RBC (Auto) Urine HCG, Qual Stool Occult Blood Blood Type Antibody Screen 09/27/18 03:11 WBC RBC Hgb Hct MCV MCH MCHC RDW Plt Count MPV Neut % (Auto) Lymph % (Auto) [place] % (Auto) Eos % (Auto) Baso % (Auto) Neut # (Auto) Lymph # (Auto) [place] # (Auto) Eos # (Auto) Baso # (Auto) PT INR APTT Sodium Potassium Chloride Carbon Dioxide Anion Gap BUN Creatinine Est GFR ( Amer) Est GFR (Non-Af Amer) POC Glucose (mg/dL) Random Glucose Calcium Total Bilirubin AST ALT Alkaline Phosphatase Total Protein Albumin Globulin Albumin/Globulin Ratio Urine Color Urine Clarity Urine pH Ur Specific [place] Urine Protein Urine Glucose (UA) Urine Ketones Urine Blood Urine Nitrate Urine Bilirubin Urine Urobilinogen Ur Leukocyte Esterase Urine RBC (Auto) Urine HCG, Qual Stool Occult Blood Blood Type O POSITIVE Antibody Screen Negative Attending/Attestation - Attestation I have personally seen and examined this patient.: Yes I have fully participated in the care of the patient.: Yes I have reviewed all pertinent clinical information: Yes Notes (Text): 09/27/18 12:13 I have seen and examined patient with GI fellow. Agree with above documentation with the following additions. In brief, this is a 33 year old female with PCOS, iron deficiency anemia, asthma who presents to hospital with complaint of fatigue and dark colored stool for the past 3 days. She reports recently starting iron supplementation pills and denies NSAID use. She reports syncopal episodes with + LOC at dinner recently and in a hotel lobby one week ago. She otherwise denies abdominal pain, nausea, vomiting, fever/chills, weight loss, or excessive vaginal bleeding. She had an EGD in May [address] Toney which showed gastritis (HP negative). She is falling asleep during evaluation and is refusing any further testing including rectal exam or endoscopy. PCOS Iron deficiency anemia Asthma Anemia Syncope - Diet as tolerated - Continue with PPI therapy - Follow up cardiology and neurology recommendations given recent syncope - Currently no overt evidence of GI bleeding noted, though would continue to monitor H/H - Patient refusing any further GI intervention, I have explained potential risks of this strategy to patient and she understands and is willing to accept this risk. Suggest additional outpatient follow up after completion of syncope workup. Will sign off case, please reconsult as necessary, thank you.
[2018-09-27] MEDS ORDERED: Pantoprazole 40 mg EC Tab PO SCH (10:00)
--- NOTE | 2018-09-27 10:32 | CP.PCM.CON ---
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 pt was having dinner and briefly passed out. he has been tired of late, light headed in general. No chest pain or dys pnea. No palpitations. The pt had syncope a few weeks ago while in a hotel lobby. pt has abdominal pain endometriosis. Stool was trace heme positive, but pt is not anemic. She has ahd EGD and CT scan in the past. TNI are neg, and there is no ecg on file to review. Review of Systems - Review of Systems All systems: reviewed and no additional remarkable complaints except (as above) Past Patient History - Infectious Disease Hx of Infectious Diseases: None - Past Medical History & Family History Past Medical History?: Yes - Past Social History Smoking Status: Former Smoker - CARDIAC Hx Hypertension: No - PULMONARY Hx Asthma: Yes - NEUROLOGICAL Hx Seizures: No - HEENT Hx HEENT Problems: No - RENAL Hx Chronic Kidney Disease: No - ENDOCRINE/METABOLIC Hx Endocrine Disorders: Yes (SEE COMMENT) Other/Comment: Hx PCOS. Hx uterine fibroids laproscopy - HEMATOLOGICAL/ONCOLOGICAL Hx Anemia: Yes Hx Human Immunodeficiency Virus (HIV): No - INTEGUMENTARY Hx Dermatological Problems: No - MUSCULOSKELETAL/RHEUMATOLOGICAL Hx Musculoskeletal Disorders: No Hx Falls: No - GASTROINTESTINAL Hx Gastrointestinal Disorders: No - GENITOURINARY/GYNECOLOGICAL Hx Sexually Transmitted Disorders: No - PSYCHIATRIC Hx Substance Use: No - SURGICAL HISTORY Hx Cholecystectomy: No - ANESTHESIA Hx Anesthesia: No Hx Anesthesia Reactions: No Meds Allergies/Adverse Reactions: Allergies Allergy/AdvReac Type Severity Reaction Status Date / Time peanut Allergy Severe ANAPHYLAXIS Verified 09/27/18 02:10 ibuprofen Allergy Intermediate ANAPHYLAXIS Verified 09/27/18 02:10 naproxen sodium [From Aleve] Allergy Intermediate ITCHING Verified 09/27/18 02:10 peach Allergy RASH Verified 09/27/18 02:10 prednisone Allergy ITCHING Verified 09/27/18 02:10 NSAIDS (Non-Steroidal AdvReac Intermediate NAUSEA Verified 09/27/18 02:10 Anti-Inflamma tussfed Allergy Mild RASH Uncoded 09/27/18 02:10 - Medications Medications: Current Medications Pantoprazole Sodium (Protonix Ec Tab) 40 mg PO DAILY TIFFANIE Physical Exam - Constitutional Appears: Well - Head Exam Head Exam: ATRAUMATIC - Eye Exam Eye Exam: EOMI Pupil Exam: NORMAL ACCOMODATION - ENT Exam ENT Exam: Mucous Membranes Moist - Respiratory Exam Respiratory Exam: Clear to Auscultation Bilateral - GI/Abdominal Exam GI & Abdominal Exam: Normal Bowel Sounds - Exam External exam: NORMAL EXTERNAL EXAM - Extremities Exam Extremities exam: Positive for: normal inspection - Back Exam Back exam: FULL ROM, NORMAL INSPECTION - Skin Skin Exam: Dry, Normal Color Results - Vital Signs Recent Vital Signs: Last Vital Signs Temp 97.6 F 09/27/18 07:02 Pulse 57 L 09/27/18 07:39 Resp 20 09/27/18 07:02 BP 113/77 09/27/18 07:02 Pulse Ox 98 09/27/18 07:02 - Labs Result Diagrams: 09/27/18 02:59 09/27/18 02:59 Labs: Laboratory Results - last 24 hr 09/27/18 09/27/18 09/27/18 02:27 02:35 02:44 WBC RBC Hgb Hct MCV MCH MCHC RDW Plt Count MPV Neut % (Auto) Lymph % (Auto) [place] % (Auto) Eos % (Auto) Baso % (Auto) Neut # (Auto) Lymph # (Auto) [place] # (Auto) Eos # (Auto) Baso # (Auto) PT INR APTT Sodium Potassium Chloride Carbon Dioxide Anion Gap BUN Creatinine Est GFR ( Amer) Est GFR (Non-Af Amer) POC Glucose (mg/dL) 100 Random Glucose Calcium Total Bilirubin AST ALT Alkaline Phosphatase Total Protein Albumin Globulin Albumin/Globulin Ratio Urine Color Yellow Urine Clarity Clear Urine pH 7.0 Ur Specific [place] 1.006 Urine Protein Negative Urine Glucose (UA) Normal Urine Ketones Negative Urine Blood Negative Urine Nitrate Negative Urine Bilirubin Negative Urine Urobilinogen Normal Ur Leukocyte Esterase Neg Urine RBC (Auto) < 1 Urine HCG, Qual Negative Stool Occult Blood Positive H Blood Type Antibody Screen 09/27/18 09/27/18 09/27/18 02:59 02:59 02:59 WBC 6.8 RBC 4.05 Hgb 12.8 Hct 38.5 MCV 95.1 MCH 31.6 H MCHC 33.2 RDW 13.6 Plt Count 193 MPV 9.4 Neut % (Auto) 49.4 L Lymph % (Auto) 38.7 [place] % (Auto) 9.0 Eos % (Auto) 2.3 Baso % (Auto) 0.6 Neut # (Auto) 3.4 Lymph # (Auto) 2.6 [place] # (Auto) 0.6 Eos # (Auto) 0.2 Baso # (Auto) 0.0 PT 11.5 INR 1.1 APTT 36.5 H Sodium 136 Potassium 3.8 Chloride 104 Carbon Dioxide 24 Anion Gap 12 BUN 17 Creatinine 0.8 Est GFR ( Amer) > 60 Est GFR (Non-Af Amer) > 60 POC Glucose (mg/dL) Random Glucose 99 Calcium 9.1 Total Bilirubin 0.3 AST 26 ALT 21 Alkaline Phosphatase 60 Total Protein 6.6 Albumin 4.0 Globulin 2.5 Albumin/Globulin Ratio 1.6 Urine Color Urine Clarity Urine pH Ur Specific [place] Urine Protein Urine Glucose (UA) Urine Ketones Urine Blood Urine Nitrate Urine Bilirubin Urine Urobilinogen Ur Leukocyte Esterase Urine RBC (Auto) Urine HCG, Qual Stool Occult Blood Blood Type Antibody Screen 09/27/18 03:11 WBC RBC Hgb Hct MCV MCH MCHC RDW Plt Count MPV Neut % (Auto) Lymph % (Auto) [place] % (Auto) Eos % (Auto) Baso % (Auto) Neut # (Auto) Lymph # (Auto) [place] # (Auto) Eos # (Auto) Baso # (Auto) PT INR APTT Sodium Potassium Chloride Carbon Dioxide Anion Gap BUN Creatinine Est GFR ( Amer) Est GFR (Non-Af Amer) POC Glucose (mg/dL) Random Glucose Calcium Total Bilirubin AST ALT Alkaline Phosphatase Total Protein Albumin Globulin Albumin/Globulin Ratio Urine Color Urine Clarity Urine pH Ur Specific [place] Urine Protein Urine Glucose (UA) Urine Ketones Urine Blood Urine Nitrate Urine Bilirubin Urine Urobilinogen Ur Leukocyte Esterase Urine RBC (Auto) Urine HCG, Qual Stool Occult Blood Blood Type O POSITIVE Antibody Screen Negative Assessment & Plan - Assessment and Plan (Free Text) Assessment: 1. Pt is fatigued, she fell asleep at the tail end of my exam with her. The CV exam is normal. There is no ecg for review. I ordered one. Echo is pending. pt may be orthostatic, and checks are ordered. TSH ordered, consider chronic fatigue syndrome. Consider neuro eval to exclude seizure.
[2018-09-27] MEDS ORDERED: Enoxaparin 40 mg Syringe SC SCH (10:45)
--- NOTE | 2018-09-27 11:21 | CP.PCM.CON ---
<Aureliano Harvey - Last Filed: 09/27/18 15:06> History of Present Illness - History of Present Illness History of Present Illness: PGY-1 neurology consult note for Dr Dahl Patient is a 33 year old female with past medical history of endometriosis, uterine fibroids s/p fibroid resection, gastritis, presents to the ED yesterday with complaints of fatigue and dizziness. As per jon at bedside, patient had one syncopal episode last night while eating dinner at a restaurant, lasting a few seconds, patient responded after being called by jon, denies falls. Patient had another syncopal episode with a fall last week at a hotel, fall was witnessed by hotel staff, patient does not recall this event. Denies syncopal episodes in the past. Patient admits to seeing double. Jon states patient seems pale since a week ago, patient says she had black colored diarrhea since the day before, and 2 episodes of non bloody vomiting. Patient denies extremity weakness, denies changes in vision, hearing or speech, Denies past history of strokes, [employer] infections or seizure convulsion activity. Denies fever, chills, headaches. Patient is drowsy and falls asleep during encounter. 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 Past Patient History - Infectious Disease Hx of Infectious Diseases: None - Past Medical History & Family History Past Medical History?: Yes - Past Social History Smoking Status: Former Smoker - CARDIAC Hx Hypertension: No - PULMONARY Hx Asthma: Yes - NEUROLOGICAL Hx Seizures: No - HEENT Hx HEENT Problems: No - RENAL Hx Chronic Kidney Disease: No - ENDOCRINE/METABOLIC Hx Endocrine Disorders: Yes (SEE COMMENT) Other/Comment: Hx PCOS. Hx uterine fibroids laproscopy - HEMATOLOGICAL/ONCOLOGICAL Hx Anemia: Yes Hx Human Immunodeficiency Virus (HIV): No - INTEGUMENTARY Hx Dermatological Problems: No - MUSCULOSKELETAL/RHEUMATOLOGICAL Hx Musculoskeletal Disorders: No Hx Falls: No - GASTROINTESTINAL Hx Gastrointestinal Disorders: No - GENITOURINARY/GYNECOLOGICAL Hx Sexually Transmitted Disorders: No - PSYCHIATRIC Hx Substance Use: No - SURGICAL HISTORY Hx Cholecystectomy: No - ANESTHESIA Hx Anesthesia: No Hx Anesthesia Reactions: No Meds Allergies/Adverse Reactions: Allergies Allergy/AdvReac Type Severity Reaction Status Date / Time peanut Allergy Severe ANAPHYLAXIS Verified 09/27/18 02:10 ibuprofen Allergy Intermediate ANAPHYLAXIS Verified 09/27/18 02:10 naproxen sodium [From Aleve] Allergy Intermediate ITCHING Verified 09/27/18 02:10 peach Allergy RASH Verified 09/27/18 02:10 prednisone Allergy ITCHING Verified 09/27/18 02:10 NSAIDS (Non-Steroidal AdvReac Intermediate NAUSEA Verified 09/27/18 02:10 Anti-Inflamma tussfed Allergy Mild RASH Uncoded 09/27/18 02:10 - Medications Medications: Current Medications Enoxaparin Sodium (Lovenox) 40 mg SC DAILY TIFFANIE Pantoprazole Sodium (Protonix Ec Tab) 40 mg PO DAILY TIFFANIE Physical Exam - Constitutional Appears: Non-toxic, No Acute Distress Additional comments: drowsy - Head Exam Head Exam: ATRAUMATIC, NORMAL INSPECTION, NORMOCEPHALIC - Eye Exam Eye Exam: EOMI, Normal appearance, PERRL - Respiratory Exam Respiratory Exam: NORMAL BREATHING PATTERN - Neurological Exam Neurological exam: Alert, CN II-XII Intact, Oriented x3 - Expanded Neurological Exam Expanded Speech: Fluid Speech Cranial nerves: EOM's Intact: Normal, Facial Palsey w/Forehead Movement: Normal, Facial Palsey w/o Forehead Movement: Normal, Facial Sensation: Normal, Nystagmus: Normal, Tongue Deviation: Normal Cerebellar Function: Finger to Nose: Normal Upper motor neuron: Pronator Drift: Normal Sensory exam: Lower Extremity Light Touch: Normal, Upper Extremity Light Touch: Normal Neuro motor strength exam: Left Upper Extremity: 5, Right Upper Extremity: 5, Left Lower Extremity: 5, Right Lower Extremity: 5 - Psychiatric Exam Psychiatric exam: Normal Affect, Normal Mood Results - Vital Signs Recent Vital Signs: Last Vital Signs Temp 97.6 F 09/27/18 07:02 Pulse 57 L 09/27/18 07:39 Resp 20 09/27/18 07:02 BP 113/77 09/27/18 07:02 Pulse Ox 98 09/27/18 07:02 - Labs Result Diagrams: 09/27/18 02:59 09/27/18 02:59 Labs: Laboratory Results - last 24 hr 09/27/18 09/27/18 09/27/18 02:27 02:35 02:44 WBC RBC Hgb Hct MCV MCH MCHC RDW Plt Count MPV Neut % (Auto) Lymph % (Auto) [place] % (Auto) Eos % (Auto) Baso % (Auto) Neut # (Auto) Lymph # (Auto) [place] # (Auto) Eos # (Auto) Baso # (Auto) PT INR APTT Sodium Potassium Chloride Carbon Dioxide Anion Gap BUN Creatinine Est GFR ( Amer) Est GFR (Non-Af Amer) POC Glucose (mg/dL) 100 Random Glucose Calcium Total Bilirubin AST ALT Alkaline Phosphatase Total Protein Albumin Globulin Albumin/Globulin Ratio Urine Color Yellow Urine Clarity Clear Urine pH 7.0 Ur Specific [place] 1.006 Urine Protein Negative Urine Glucose (UA) Normal Urine Ketones Negative Urine Blood Negative Urine Nitrate Negative Urine Bilirubin Negative Urine Urobilinogen Normal Ur Leukocyte Esterase Neg Urine RBC (Auto) < 1 Urine HCG, Qual Negative Stool Occult Blood Positive H Blood Type Antibody Screen 09/27/18 09/27/18 09/27/18 02:59 02:59 02:59 WBC 6.8 RBC 4.05 Hgb 12.8 Hct 38.5 MCV 95.1 MCH 31.6 H MCHC 33.2 RDW 13.6 Plt Count 193 MPV 9.4 Neut % (Auto) 49.4 L Lymph % (Auto) 38.7 [place] % (Auto) 9.0 Eos % (Auto) 2.3 Baso % (Auto) 0.6 Neut # (Auto) 3.4 Lymph # (Auto) 2.6 [place] # (Auto) 0.6 Eos # (Auto) 0.2 Baso # (Auto) 0.0 PT 11.5 INR 1.1 APTT 36.5 H Sodium 136 Potassium 3.8 Chloride 104 Carbon Dioxide 24 Anion Gap 12 BUN 17 Creatinine 0.8 Est GFR ( Amer) > 60 Est GFR (Non-Af Amer) > 60 POC Glucose (mg/dL) Random Glucose 99 Calcium 9.1 Total Bilirubin 0.3 AST 26 ALT 21 Alkaline Phosphatase 60 Total Protein 6.6 Albumin 4.0 Globulin 2.5 Albumin/Globulin Ratio 1.6 Urine Color Urine Clarity Urine pH Ur Specific [place] Urine Protein Urine Glucose (UA) Urine Ketones Urine Blood Urine Nitrate Urine Bilirubin Urine Urobilinogen Ur Leukocyte Esterase Urine RBC (Auto) Urine HCG, Qual Stool Occult Blood Blood Type Antibody Screen 09/27/18 03:11 WBC RBC Hgb Hct MCV MCH MCHC RDW Plt Count MPV Neut % (Auto) Lymph % (Auto) [place] % (Auto) Eos % (Auto) Baso % (Auto) Neut # (Auto) Lymph # (Auto) [place] # (Auto) Eos # (Auto) Baso # (Auto) PT INR APTT Sodium Potassium Chloride Carbon Dioxide Anion Gap BUN Creatinine Est GFR ( Amer) Est GFR (Non-Af Amer) POC Glucose (mg/dL) Random Glucose Calcium Total Bilirubin AST ALT Alkaline Phosphatase Total Protein Albumin Globulin Albumin/Globulin Ratio Urine Color Urine Clarity Urine pH Ur Specific [place] Urine Protein Urine Glucose (UA) Urine Ketones Urine Blood Urine Nitrate Urine Bilirubin Urine Urobilinogen Ur Leukocyte Esterase Urine RBC (Auto) Urine HCG, Qual Stool Occult Blood Blood Type O POSITIVE Antibody Screen Negative Assessment & Plan - Assessment and Plan (Free Text) Plan: 33 year old hx of endometriosis, gastritis, uterine fibroids, anemia presenting with two episodes of syncope, one last week s/p fall, a second one yesterday, no fall on that occasion, admits to black stools/diarrhea for two days. GI consulted. 1. CT head w/o contrast f/u results 2. Bedside EEG rule out epilepsy 3. Recommend cardiac workup 4. continue medical management as per primary Plan d/w Dr Hesham Harvey, PGY-1 - Date & Time Date: 09/27/18 Time: 10:00 <Yoel Dahl - Last Filed: 09/28/18 18:55> Results - Vital Signs Recent Vital Signs: Last Vital Signs Temp 98.3 F 09/27/18 15:58 Pulse 61 09/27/18 15:58 Resp 20 09/27/18 15:58 BP 101/62 09/27/18 15:58 Pulse Ox 99 09/27/18 15:58 - Labs Result Diagrams: 09/27/18 02:59 09/27/18 02:59 Labs: Laboratory Results - last 24 hr 09/27/18 19:03 Urine Opiates Screen Negative Urine Methadone Screen Negative Ur Barbiturates Screen Negative Ur Phencyclidine Scrn Negative Ur Amphetamines Screen Negative U Benzodiazepines Scrn Negative U Oth Cocaine Metabols Negative U Cannabinoids Screen Positive H Attending/Attestation - Attestation I have personally seen and examined this patient.: Yes I have fully participated in the care of the patient.: Yes I have reviewed all pertinent clinical information: Yes Notes (Text): I agree with the assessment and plan as outlined above.
--- NOTE | 2018-09-27 15:27 | CT ---
Date of service: 09/27/2018 PROCEDURE: CT HEAD WITHOUT CONTRAST. HISTORY: syncope, fall one week ago COMPARISON: Noncontrast head CT performed 06/29/18, MRI stroke protocol performed 06/29/18 TECHNIQUE: Axial computed tomography images were obtained through the head/brain without intravenous contrast. Radiation dose: Total exam DLP = 1155.7 mGy-cm. This CT exam was performed using one or more of the following dose reduction techniques: Automated exposure control, adjustment of the mA and/or kV according to patient size, and/or use of iterative reconstruction technique. FINDINGS: Streak artifact obscures evaluation of the skull base. HEMORRHAGE: No intracranial hemorrhage. BRAIN: No mass effect or edema. Desai-white matter differentiation appears intact. Please note that MRI with diffusion imaging is more sensitive in the detection of acute ischemic event. VENTRICLES: No hydrocephalus. CALVARIUM: Unremarkable. PARANASAL SINUSES: Unremarkable as visualized. No significant inflammatory changes. MASTOID AIR CELLS: Unremarkable as visualized. No inflammatory changes. OTHER FINDINGS: None. IMPRESSION: No acute intracranial pathology identified.
[2018-09-27 15:59] VITALS: BP 101/62; PULSE 61; TEMP 98.3; O2SAT 99
--- NOTE | 2018-09-27 18:50 | CP.PCM.HP ---
Past Patient History - Infectious Disease Hx of Infectious Diseases: None - Past Medical History & Family History Past Medical History?: Yes - Past Social History Smoking Status: Former Smoker - CARDIAC Hx Hypertension: No - PULMONARY Hx Asthma: Yes - NEUROLOGICAL Hx Seizures: No - HEENT Hx HEENT Problems: No - RENAL Hx Chronic Kidney Disease: No - ENDOCRINE/METABOLIC Hx Endocrine Disorders: Yes (SEE COMMENT) Other/Comment: Hx PCOS. Hx uterine fibroids laproscopy - HEMATOLOGICAL/ONCOLOGICAL Hx Anemia: Yes Hx Human Immunodeficiency Virus (HIV): No - INTEGUMENTARY Hx Dermatological Problems: No - MUSCULOSKELETAL/RHEUMATOLOGICAL Hx Musculoskeletal Disorders: No Hx Falls: No - GASTROINTESTINAL Hx Gastrointestinal Disorders: No - GENITOURINARY/GYNECOLOGICAL Hx Sexually Transmitted Disorders: No - PSYCHIATRIC Hx Substance Use: No - SURGICAL HISTORY Hx Cholecystectomy: No - ANESTHESIA Hx Anesthesia: No Hx Anesthesia Reactions: No Meds Allergies/Adverse Reactions: Allergies Allergy/AdvReac Type Severity Reaction Status Date / Time peanut Allergy Severe ANAPHYLAXIS Verified 09/27/18 02:10 ibuprofen Allergy Intermediate ANAPHYLAXIS Verified 09/27/18 02:10 naproxen sodium [From Aleve] Allergy Intermediate ITCHING Verified 09/27/18 02:10 peach Allergy RASH Verified 09/27/18 02:10 prednisone Allergy ITCHING Verified 09/27/18 02:10 NSAIDS (Non-Steroidal AdvReac Intermediate NAUSEA Verified 09/27/18 02:10 Anti-Inflamma tussfed Allergy Mild RASH Uncoded 09/27/18 02:10 Physical Exam - Constitutional Appears: Well - Head Exam Head Exam: ATRAUMATIC, NORMAL INSPECTION, NORMOCEPHALIC - Eye Exam Eye Exam: EOMI, Normal appearance, PERRL Pupil Exam: NORMAL ACCOMODATION, PERRL - ENT Exam ENT Exam: Mucous Membranes Moist, Normal Exam - Neck Exam Neck exam: Positive for: Normal Inspection - Respiratory Exam Respiratory Exam: Decreased Breath Sounds - Cardiovascular Exam Cardiovascular Exam: REGULAR RHYTHM, +S1, +S2 - GI/Abdominal Exam GI & Abdominal Exam: Diminished Bowel Sounds, Soft - Rectal Exam Rectal Exam: Deferred - Neurological Exam Neurological exam: Oriented x3 Results - Vital Signs Recent Vital Signs: Last Vital Signs Temp 98.3 F 09/27/18 15:58 Pulse 61 09/27/18 15:58 Resp 20 09/27/18 15:58 BP 101/62 09/27/18 15:58 Pulse Ox 99 09/27/18 15:58 - Labs Result Diagrams: 09/27/18 02:59 09/27/18 02:59 Labs: Laboratory Results - last 24 hr 09/27/18 09/27/18 09/27/18 02:27 02:35 02:44 WBC RBC Hgb Hct MCV MCH MCHC RDW Plt Count MPV Neut % (Auto) Lymph % (Auto) [place] % (Auto) Eos % (Auto) Baso % (Auto) Neut # (Auto) Lymph # (Auto) [place] # (Auto) Eos # (Auto) Baso # (Auto) PT INR APTT Sodium Potassium Chloride Carbon Dioxide Anion Gap BUN Creatinine Est GFR ( Amer) Est GFR (Non-Af Amer) POC Glucose (mg/dL) 100 Random Glucose Calcium Total Bilirubin AST ALT Alkaline Phosphatase Total Protein Albumin Globulin Albumin/Globulin Ratio Urine Color Yellow Urine Clarity Clear Urine pH 7.0 Ur Specific [place] 1.006 Urine Protein Negative Urine Glucose (UA) Normal Urine Ketones Negative Urine Blood Negative Urine Nitrate Negative Urine Bilirubin Negative Urine Urobilinogen Normal Ur Leukocyte Esterase Neg Urine RBC (Auto) < 1 Urine HCG, Qual Negative Stool Occult Blood Positive H Blood Type Antibody Screen 09/27/18 09/27/18 09/27/18 02:59 02:59 02:59 WBC 6.8 RBC 4.05 Hgb 12.8 Hct 38.5 MCV 95.1 MCH 31.6 H MCHC 33.2 RDW 13.6 Plt Count 193 MPV 9.4 Neut % (Auto) 49.4 L Lymph % (Auto) 38.7 [place] % (Auto) 9.0 Eos % (Auto) 2.3 Baso % (Auto) 0.6 Neut # (Auto) 3.4 Lymph # (Auto) 2.6 [place] # (Auto) 0.6 Eos # (Auto) 0.2 Baso # (Auto) 0.0 PT 11.5 INR 1.1 APTT 36.5 H Sodium 136 Potassium 3.8 Chloride 104 Carbon Dioxide 24 Anion Gap 12 BUN 17 Creatinine 0.8 Est GFR ( Amer) > 60 Est GFR (Non-Af Amer) > 60 POC Glucose (mg/dL) Random Glucose 99 Calcium 9.1 Total Bilirubin 0.3 AST 26 ALT 21 Alkaline Phosphatase 60 Total Protein 6.6 Albumin 4.0 Globulin 2.5 Albumin/Globulin Ratio 1.6 Urine Color Urine Clarity Urine pH Ur Specific [place] Urine Protein Urine Glucose (UA) Urine Ketones Urine Blood Urine Nitrate Urine Bilirubin Urine Urobilinogen Ur Leukocyte Esterase Urine RBC (Auto) Urine HCG, Qual Stool Occult Blood Blood Type Antibody Screen 09/27/18 03:11 WBC RBC Hgb Hct MCV MCH MCHC RDW Plt Count MPV Neut % (Auto) Lymph % (Auto) [place] % (Auto) Eos % (Auto) Baso % (Auto) Neut # (Auto) Lymph # (Auto) [place] # (Auto) Eos # (Auto) Baso # (Auto) PT INR APTT Sodium Potassium Chloride Carbon Dioxide Anion Gap BUN Creatinine Est GFR ( Amer) Est GFR (Non-Af Amer) POC Glucose (mg/dL) Random Glucose Calcium Total Bilirubin AST ALT Alkaline Phosphatase Total Protein Albumin Globulin Albumin/Globulin Ratio Urine Color Urine Clarity Urine pH Ur Specific [place] Urine Protein Urine Glucose (UA) Urine Ketones Urine Blood Urine Nitrate Urine Bilirubin Urine Urobilinogen Ur Leukocyte Esterase Urine RBC (Auto) Urine HCG, Qual Stool Occult Blood Blood Type O POSITIVE Antibody Screen Negative
[2018-09-27 19:25] LABS: BARBITURATES, UR NEGATIVE (NEGATIVE); BENZODIAZEPINES, UR NEGATIVE (NEGATIVE); OPIATES, UR NEGATIVE (NEGATIVE); PHENCYCLIDINE, UR NEGATIVE (NEGATIVE)
== END 2018-09-27 22:10 | disposition left against medical advice (07) | DRG 142 ==
LOC: C.ER 01:49 → C.5S 04:11
PROVIDERS: ADMIT Internal Medicine Nephrology; ATTEND Internal Medicine Nephrology
DX: R55 Syncope and collapse (principal); D50.9 Iron deficiency anemia, unspecified; E28.2 Polycystic ovarian syndrome; J45.909 Unspecified asthma, uncomplicated; I44.0 Atrioventricular block, first degree; N80.9 Endometriosis, unspecified; Z87.891 Personal history of nicotine dependence